=== PATIENT | female | born 1980 | race American Indian/Alaskan Native ===

== ENCOUNTER 2017-09-21 16:28 | Inpatient (IN) | payer OTHER, MEDICAID ==
[2017-09-21 17:47] LABS: Hematocrit 34.4 % (30.3-42.9); Hemoglobin 11.1 gm/dl (10.1-14.3); Mean Corpuscular HGB Conc 32 % (30-34); Mean Corpuscular Hemoglobin 26 pg (28-32); Mean Corpuscular Volume 81 fl (79-97); Platelet Count 313 K/mm3 (140-440); Red Blood Count 4.22 M/mm3 (3.65-5.03); Red Cell Distribution Width 18.6 % (13.2-15.2)
[2017-09-21 17:55] LABS: INR 0.95 (0.87-1.13)
[2017-09-21 17:56] LABS: Partial Thromboplastin Time 26.4 Sec. (24.2-36.6)
[2017-09-21] MEDS ORDERED: APRESOLINE IV NR (18:08)
[2017-09-21 18:13] LABS: Alanine Aminotransferase 21 units/L (7-56); Uric Acid 5.3 mg/dL (3.5-7.6)
[2017-09-21 18:15] LABS: Bilirubin,Urine NEG (Negative); Blood,Urine LG (Negative); Color,Urine Red (Yellow); Mucus,Urine 1+ /HPF; Urobilinogen,Urine < 2.0 mg/dL (<2.0)
[2017-09-21 18:16] LABS: RBC,Urine > 182.0 /HPF (0.0-6.0)
--- NOTE | 2017-09-21 19:36 | Ultrasound Report ---
FINAL REPORT EXAM: US OB > = 14 WEEKS FETUS HISTORY: vaginal bleeding, looking at placenta TECHNIQUE: Transabdominal sonography of the pelvis. PRIORS: None. FINDINGS: There is a single, live intrauterine in breech presentation. heart motion is detected and heart rate is 152 beats per minute. Placenta is located anterior right lateral and there is no evidence of previa or abruption. Lobular and rounded, hypoechoic focus adjacent to or partially contiguous with placenta anteriorly measuring approximately 5 cm, nonspecific. Cervical length 2.6 cm. Biometric data obtained and corresponds to an estimated gestational age of 27 weeks 0 days and an ultrasound estimated date of delivery of 21 December 2017 (it should be noted that an examination performed earlier in may yield more accurate dating). Limited survey grossly unremarkable. Amniotic fluid index is 17.4 cm. BPD: 6.72 cm HC: 26.5 cm AC: 22.2 cm FL: 4.81 cm Remainder of the uterus and adnexa grossly unremarkable. IMPRESSION: 1. Single, live intrauterine . 2. Lobular, hypoechoic focus adjacent to or contiguous with anterior placenta may represent focal lobulation or succenturiate lobe, uterine fibroid or contraction. Exact etiology or significance uncertain, and clinical correlation along with followup may be warranted. 3. Mildly decreased cervical length.
--- NOTE | 2017-09-21 19:42 | History and Physical Report ---
History of Present Illness Date of examination: 09/21/17 Date of admission: 09/21/17 Chief complaint: vaginal bleeding History of present illness: This is a 37 yo at 27+5 WEEKS came in c/o vaginal bleeding this am. she stated that she has changed her pads 3x since this am. She reports good fm no contractions nor pain. SHe denies any lightheadedness nor dizziness. no sob, cp. she is aptient of Premier since 7 weeks and been co managed with [facility] for high risk . She has TYPE 2 DIABETES on 88 u N and 64 u R in am and dinner 78 u R and before bed 84 U N. Metformin 500 mg BID. She also has cHTN on labetolol 100 mg bid. 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 She has had exposure to welbutrin and celexa. she has had a previous csec and desires repeat with undesired infertility with BTL. Past History Past Medical History: hypertension, diabetes, other (depression) Past Surgical History: section [employer] History: chlamydia, gonorrhea, herpes Family/Genetic History: diabetes, heart disease, other (alhzheimer) Social history: no significant social history, (seperated). denies: smoking, alcohol abuse, prescription drug abuse - Obstetrical History Expected Date of Delivery: 12/16/17 Actual Gestation: 27 Week(s) 5 Day(s) : 4 Para: 3 Hx # Term Pregnancies: 2 Number of Pregnancies: 1 Spontaneous Abortions: 0 Induced : 0 Number of Living Children: 3 Medications and Allergies Allergies Allergy/AdvReac Type Severity Reaction Status Date / Time No Known Allergies Allergy Verified 05/13/14 23:02 Home Medications Medication Instructions Recorded Confirmed Last Taken Type NIFEdipine XL [Procardia Xl] 90 mg PO QDAY #60 tablet 05/17/14 09/21/17 18:00 Rx metFORMIN [Glucophage] 500 mg PO BIDDIAB #60 tablet 05/17/14 09/21/17 09/20/17 13:00 Rx Insulin NPH Human Isophane 86 units SQ BID 09/21/17 09/21/17 09/21/17 08:00 History [Novolin N] Insulin Regular, Human [Humulin R] 56 units SQ BID 09/21/17 09/21/17 09/21/17 08 :00 History Labetalol [Normodyne] 200 mg PO TID 09/21/17 09/21/17 09/20/17 18:00 History Vit No.130/Iron/Folic 1 tab PO DAILY 09/21/17 09/21/17 09/20/17 History [ Tablet] buPROPion [Wellbutrin] 100 mg PO DAILY 09/21/17 09/21/17 09/20/17 History Review of Systems All systems: negative Genitourinary: vaginal bleeding - Vital Signs Vital signs: Vital Signs Pulse Pulse Ox 130 H 100 09/21/17 16:37 09/21/17 16:37 Temp Pulse Resp BP Pulse Ox 126 H 150/87 81 L 09/21/17 19:35 09/21/17 19:35 09/21/17 18:56 - Physical Exam Breasts: Positive: deferred Cardiovascular: Regular rate, Normal S1 Lungs: Positive: Clear to auscultation, Normal air movement Abdomen: Positive: normal appearance, soft, guarding, normal bowel sounds. Negative: distention, tenderness Genitourinary (Female): Positive: normal external genitalia Vulva: both: normal Vagina: Positive: other (blood) Uterus: Positive: normal size, normal contour Anus/Rectum: Positive: normal perianal skin Extremities: Positive: normal Deep Tendon Reflex Grade: Normal +2 - Obstetrical FHR: category 1 Results Result Diagrams: 09/21/17 17:10 09/21/17 17:10 Abnormal lab results 09/21/17 09/21/17 09/21/17 Range/Units 16:52 17:00 17:10 MCH 26 L (28-32) pg RDW 18.6 H (13.2-15.2) % POC Glucose 47 L (70-105) Lactate Dehydrogenase (91-180) units/L Urine WBC (Auto) 10.0 H (0.0-6.0) /HPF 09/21/17 Range/Units 17:10 MCH (28-32) pg RDW (13.2-15.2) % POC Glucose (70-105) Lactate Dehydrogenase 223 H (91-180) units/L Urine WBC (Auto) (0.0-6.0) /HPF All other labs normal.
[2017-09-21] MEDS ORDERED: COLACE PO PRN (19:59)
[2017-09-21] MEDS ORDERED: LACTATED RINGERS 1,000 ML IV ONE (20:00)
[2017-09-21] MEDS ORDERED: BENADRYL PO PRN (20:14)
[2017-09-21] MEDS ORDERED: LACTATED RINGERS 1,000 ML ONE ×2 (20:14→21:23)
[2017-09-21] MEDS ORDERED: MYLICON PO PRN (20:14)
[2017-09-21] MEDS ORDERED: ZOFRAN IV PRN (20:14)
[2017-09-21] MEDS ORDERED: D50W (25GM) Syringe IV PRN (20:20)
[2017-09-21] MEDS ORDERED: cefTRIAXone 1 GM in NACL 0.9% 20 ML IV SCH (20:45)
[2017-09-21] MEDS ORDERED: SUBLIMAZE IV PRN (21:33)
[2017-09-21] MEDS ORDERED: MILK OF MAGNESIA PO PRN (22:00)
[2017-09-22] MEDS: TYLENOL PO PRN (05:10)
[2017-09-22] MEDS: LACTATED RINGERS 1,000 ML IV SCH (05:14)
[2017-09-22] MEDS ORDERED: CELESTONE SOLUSPAN IM SCH (07:00)
[2017-09-22] MEDS ORDERED: NACL 0.9% 500 ML 500 ML IV ONE (08:32)
--- NOTE | 2017-09-22 08:36 | Progress Note ---
Assessment and Plan A/P HD#2 vaginal bleeding assess for abruption continous monitoring sliding scale for DM bmz x1 today tomorrwo next dose bed rest CBC today and cross 2 units US reviewed breech will need repeat csec with delivery Niccu consult today Subjective - Subjective Date of service: 09/22/17 Principal diagnosis: vaginal bleeding in third trimester Interval history: This is a 37 yo at 27+5 WEEKS came in c/o vaginal bleeding this am. she stated that she has changed her pads 3x since this am. She reports good fm no contractions nor pain. SHe denies any lightheadedness nor dizziness. no sob, cp. she is aptient of Premier since 7 weeks and been co managed with [facility] for high risk . She has TYPE 2 DIABETES on 88 u N and 64 u R in am and dinner 78 u R and before bed 84 U N. Metformin 500 mg BID. She also has cHTN on labetolol 100 mg bid. 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 She has had exposure to welbutrin and celexa. she has had a previous csec and desires repeat with undesired infertility with BTL. Patient reports: vaginal bleeding Objective - Vital Signs Vital Signs: Vital Signs - 12hr 09/21/17 09/21/17 09/21/17 20:37 21:07 21:53 Temperature Pulse Rate 117 H 114 H 107 H Respiratory Rate Blood Pressure 189/101 161/91 132/73 Blood Pressure [Right] O2 Sat by Pulse Oximetry 09/21/17 09/21/17 09/22/17 22:10 23:08 00:08 Temperature Pulse Rate 104 H 108 H 102 H Respiratory Rate Blood Pressure 123/65 126/83 142/92 Blood Pressure [Right] O2 Sat by Pulse Oximetry 09/22/17 09/22/17 09/22/17 01:08 02:08 03:09 Temperature Pulse Rate 99 H 99 H 107 H Respiratory Rate Blood Pressure 105/59 128/86 153/88 Blood Pressure [Right] O2 Sat by Pulse Oximetry 09/22/17 09/22/17 09/22/17 04:09 04:20 05:08 Temperature Pulse Rate 102 H 93 H 103 H Respiratory Rate Blood Pressure 143/86 174/104 Blood Pressure [Right] O2 Sat by Pulse 94 Oximetry 09/22/17 09/22/17 09/22/17 05:13 05:23 06:08 Temperature Pulse Rate 105 H 98 H 94 H Respiratory Rate Blood Pressure 161/97 129/63 131/69 Blood Pressure [Right] O2 Sat by Pulse Oximetry 09/22/17 09/22/17 09/22/17 06:45 07:21 08:14 Temperature 96.8 F L Pulse Rate 97 H 106 H Respiratory 16 Rate Blood Pressure Blood Pressure 148/98 [Right] O2 Sat by Pulse 0 L 88 99 Oximetry 09/22/17 09/22/17 09/22/17 08:19 08:20 08:25 Temperature Pulse Rate 108 H 107 H 108 H Respiratory Rate Blood Pressure 148/98 Blood Pressure [Right] O2 Sat by Pulse 86 98 99 Oximetry 09/22/17 09/22/17 08:29 08:35 Temperature Pulse Rate 109 H 107 H Respiratory Rate Blood Pressure Blood Pressure [Right] O2 Sat by Pulse 99 100 Oximetry - Exam Breasts: deferred Cardiovascular: Regular rate, Normal S1 Lungs: Clear to auscultation, Normal air movement Abdomen: Present: normal appearance, soft, normal bowel sounds. Absent: distention, tenderness, guarding Vulva: both: normal (blood in vault 1/2 dollar size clot no active bleeding ) Uterus: Present: normal, firm, fundal height below umbilicus. Absent: bogginess , tenderness FHR: category 1 Cervical Dilatation: 1 Cervical Effacement Percentage: 40 station: -1 Uterine Contraction Pattern: Absent Uterine Tone Measurement Phase: Resting Extremities: normal Deep Tendon Reflex Grade: Normal +2 - Labs Labs: Abnormal Labs 09/21/17 09/21/17 09/21/17 16:52 17:00 17:08 MCH RDW POC Glucose 47 L Lactate Dehydrogenase Urine WBC (Auto) 10.0 H Crossmatch See Detail 09/21/17 09/21/17 17:10 17:10 MCH 26 L RDW 18.6 H POC Glucose Lactate Dehydrogenase 223 H Urine WBC (Auto) Crossmatch Laboratory Results - last 24 hr 09/21/17 09/21/17 09/21/17 16:52 17:00 17:08 WBC RBC Hgb Hct MCV MCH MCHC RDW Plt Count PT INR APTT Creatinine Estimated GFR POC Glucose 47 L Uric Acid AST ALT Lactate Dehydrogenase Urine Color Red Urine Turbidity Clear Urine pH 7.0 Ur Specific Tram 1.015 Urine Protein 100 mg/dl Urine Glucose (UA) Neg Urine Ketones Neg Urine Blood Lg Urine Nitrite Neg Urine Bilirubin Neg Urine Urobilinogen < 2.0 Ur Leukocyte Esterase Tr Urine WBC (Auto) 10.0 H Urine RBC (Auto) > 182.0 U Epithel Cells (Auto) 11.0 Urine Mucus 1+ Blood Type A POSITIVE Antibody Screen Negative Crossmatch See Detail 09/21/17 09/21/17 09/21/17 17:10 17:10 17:10 WBC 10.9 RBC 4.22 Hgb 11.1 Hct 34.4 MCV 81 MCH 26 L MCHC 32 RDW 18.6 H Plt Count 313 PT 13.1 INR 0.95 APTT 26.4 Creatinine 0.8 Estimated GFR > 60 POC Glucose Uric Acid 5.3 AST 16 ALT 21 Lactate Dehydrogenase 223 H Urine Color Urine Turbidity Urine pH Ur Specific Tram Urine Protein Urine Glucose (UA) Urine Ketones Urine Blood Urine Nitrite Urine Bilirubin Urine Urobilinogen Ur Leukocyte Esterase Urine WBC (Auto) Urine RBC (Auto) U Epithel Cells (Auto) Urine Mucus Blood Type Antibody Screen Crossmatch 09/21/17 09/22/17 19:52 06:44 WBC RBC Hgb Hct MCV MCH MCHC RDW Plt Count PT INR APTT Creatinine Estimated GFR POC Glucose 87 104 Uric Acid AST ALT Lactate Dehydrogenase Urine Color Urine Turbidity Urine pH Ur Specific Tram Urine Protein Urine Glucose (UA) Urine Ketones Urine Blood Urine Nitrite Urine Bilirubin Urine Urobilinogen Ur Leukocyte Esterase Urine WBC (Auto) Urine RBC (Auto) U Epithel Cells (Auto) Urine Mucus Blood Type Antibody Screen Crossmatch
[2017-09-22] MEDS: NORMODYNE PO SCH ×3 (09:34→20:40)
[2017-09-22 09:39] LABS: Basophils # (Auto) 0.1 K/mm3 (0.0-0.1); Basophils % (Auto) 0.5 % (0.0-1.8); Eosinophils % (Auto) 0.1 % (0.0-4.3); Hematocrit 32.7 % (30.3-42.9); Hemoglobin 10.4 gm/dl (10.1-14.3); Lymphocytes # (Auto) 1.3 K/mm3 (1.2-5.4); Lymphocytes % (Auto) 11.6 % (13.4-35.0); Mean Corpuscular HGB Conc 32 % (30-34); Mean Corpuscular Volume 81 fl (79-97); Monocytes # (Auto) 0.5 K/mm3 (0.0-0.8); Monocytes % (Auto) 4.5 % (0.0-7.3); Platelet Count 310 K/mm3 (140-440); Red Blood Count 4.04 M/mm3 (3.65-5.03); Red Cell Distribution Width 18.3 % (13.2-15.2)
[2017-09-22 09:46] LABS: Mean Corpuscular Hemoglobin 26 pg (28-32)
[2017-09-22] MEDS: PRENATAL VITAMIN PO SCH (11:32)
[2017-09-22 13:04] LABS: Hematocrit 31.1 % (30.3-42.9); Mean Corpuscular HGB Conc 32 % (30-34); Mean Corpuscular Hemoglobin 26 pg (28-32); Mean Corpuscular Volume 81 fl (79-97); Platelet Count 286 K/mm3 (140-440); Red Blood Count 3.84 M/mm3 (3.65-5.03); Red Cell Distribution Width 18.7 % (13.2-15.2)
[2017-09-22 13:31] LABS: Alanine Aminotransferase 18 units/L (7-56); Albumin 2.9 g/dL (3.9-5); BUN/Creatinine Ratio 11; Blood Urea Nitrogen 9 mg/dL (7-17); Calcium 8.3 mg/dL (8.4-10.2); Hemolysis Index 17
[2017-09-22] MEDS ORDERED: NACL 0.9% 1000 ML 1,000 ML ONE ×2 (14:25→22:55)
[2017-09-22] MEDS: HumuLIN R SUB-Q SCH ×3 (14:39→23:16)
[2017-09-22 16:28] LABS: Basophils % (Auto) 0.2 % (0.0-1.8); Eosinophils % (Auto) 0.1 % (0.0-4.3); Hematocrit 31.3 % (30.3-42.9); Hemoglobin 10.3 gm/dl (10.1-14.3); Lymphocytes # (Auto) 0.7 K/mm3 (1.2-5.4); Lymphocytes % (Auto) 6.9 % (13.4-35.0); Mean Corpuscular HGB Conc 33 % (30-34); Mean Corpuscular Hemoglobin 27 pg (28-32); Mean Corpuscular Volume 81 fl (79-97); Monocytes # (Auto) 0.4 K/mm3 (0.0-0.8); Monocytes % (Auto) 3.9 % (0.0-7.3); Platelet Count 284 K/mm3 (140-440); Red Blood Count 3.86 M/mm3 (3.65-5.03); Red Cell Distribution Width 18.4 % (13.2-15.2)
--- NOTE | 2017-09-22 18:10 | Consultation ---
History of Present Illness Consult date: 09/22/17 Reason for consult: prematurity (27 weeks gestation with vaginal bleeding) Delight Documentation - information: Height 5 ft 8 in Medications and Allergies Allergies Allergy/AdvReac Type Severity Reaction Status Date / Time No Known Allergies Allergy Verified 05/13/14 23:02 Home Medications Medication Instructions Recorded Confirmed Last Taken Type NIFEdipine XL [Procardia Xl] 90 mg PO QDAY #60 tablet 05/17/14 09/21/17 18:00 Rx metFORMIN [Glucophage] 500 mg PO BIDDIAB #60 tablet 05/17/14 09/21/17 09/20/17 13:00 Rx Insulin NPH Human Isophane 86 units SQ BID 09/21/17 09/21/17 09/21/17 08:00 History [Novolin N] Insulin Regular, Human [Humulin R] 56 units SQ BID 09/21/17 09/21/17 09/21/17 08 :00 History Labetalol [Normodyne] 200 mg PO TID 09/21/17 09/21/17 09/20/17 18:00 History Vit No.130/Iron/Folic 1 tab PO DAILY 09/21/17 09/21/17 09/20/17 History [ Tablet] buPROPion [Wellbutrin] 100 mg PO DAILY 09/21/17 09/21/17 09/20/17 History Active Meds: Active Medications Acetaminophen (Tylenol) 650 mg PO Q4H PRN PRN Reason: Pain MILD(1-3)/Fever >100.5/MURRELL Last Admin: 09/22/17 05:10 Dose: 650 mg Al Hydrox/Mg Hydrox/Simethicone (Alum-Mag Hydrox-Simeth [id number]/5ml) 30 ml PO Q6H PRN PRN Reason: Indigestion Dextrose (D50w (25gm) Syringe) 50 ml IV PRN PRN PRN Reason: Hypoglycemia Diphenhydramine HCl (Benadryl) 25 mg PO Q6H PRN PRN Reason: Itching Docusate Sodium (Colace) 100 mg PO Q12H PRN PRN Reason: Constipation Fentanyl (Sublimaze) 100 mcg IV Q2H PRN PRN Reason: Labor Pain Last Admin: 09/22/17 01:35 Dose: 50 mcg Lactated Ringer's (Lactated Ringers) 1,000 mls @ 125 mls/hr IV DIRECT [facility] Last Admin: 09/22/17 05:14 Dose: 125 mls/hr Insulin Human Regular (Humulin R) 0 units SUB-Q ACHS [facility]; Protocol Last Admin: 09/22/17 14:39 Dose: 4 units Labetalol HCl (Normodyne) 200 mg PO TID [facility] Last Admin: 09/22/17 14:44 Dose: 200 mg Magnesium Hydroxide (Milk Of Magnesia) 30 ml PO QHS PRN PRN Reason: Laxative Effect Multivitamins/Iron/Calcium ( Vitamin) 1 each PO QDAY [facility] Last Admin: 09/22/17 11:32 Dose: 1 each Ondansetron HCl (Zofran) 4 mg IV Q6H PRN PRN Reason: Nausea And Vomiting Simethicone (Mylicon) 80 mg PO Q6H PRN PRN Reason: Gas pain Zolpidem Tartrate (Ambien) 10 mg PO ONCE PRN PRN Reason: Sleep Exam Vital Signs Pulse Pulse Ox 130 H 100 09/21/17 16:37 09/21/17 16:37 Temp Pulse Resp BP Pulse Ox 96.8 F L 106 H 16 160/97 0 L 09/22/17 08:14 09/22/17 16:08 09/22/17 08:14 09/22/17 16:08 09/22/17 14:30 Results - Laboratory Findings 09/22/17 16:09 09/22/17 12:52 Abnormal lab results 09/21/17 09/21/17 09/21/17 Range/Units 17:00 17:08 17:10 Hgb (10.1-14.3) gm/dl MCH (28-32) pg RDW (13.2-15.2) % Lymph % (Auto) (13.4-35.0) % Lymph # (1.2-5.4) K/mm3 Seg Neutrophils % (40.0-70.0) % Seg Neutrophils # (1.8-7.7) K/mm3 Carbon Dioxide (22-30) mmol/L Glucose (65-100) mg/dL POC Glucose (70-105) Calcium (8.4-10.2) mg/dL Lactate Dehydrogenase 223 H (91-180) units/L Total Protein (6.3-8.2) g/dL Albumin (3.9-5) g/dL Urine WBC (Auto) 10.0 H (0.0-6.0) /HPF Crossmatch See Detail 09/22/17 09/22/17 09/22/17 Range/Units 09:24 09:54 12:52 Hgb 10.0 L (10.1-14.3) gm/dl MCH 26 L 26 L (28-32) pg RDW 18.3 H 18.7 H (13.2-15.2) % Lymph % (Auto) 11.6 L (13.4-35.0) % Lymph # (1.2-5.4) K/mm3 Seg Neutrophils % 83.3 H (40.0-70.0) % Seg Neutrophils # 9.0 H (1.8-7.7) K/mm3 Carbon Dioxide (22-30) mmol/L Glucose (65-100) mg/dL POC Glucose 117 H (70-105) Calcium (8.4-10.2) mg/dL Lactate Dehydrogenase (91-180) units/L Total Protein (6.3-8.2) g/dL Albumin (3.9-5) g/dL Urine WBC (Auto) (0.0-6.0) /HPF Crossmatch 09/22/17 09/22/17 09/22/17 Range/Units 12:52 14:24 16:09 Hgb (10.1-14.3) gm/dl MCH 27 L (28-32) pg RDW 18.4 H (13.2-15.2) % Lymph % (Auto) 6.9 L (13.4-35.0) % Lymph # 0.7 L (1.2-5.4) K/mm3 Seg Neutrophils % 88.9 H (40.0-70.0) % Seg Neutrophils # 9.4 H (1.8-7.7) K/mm3 Carbon Dioxide 18 L (22-30) mmol/L Glucose 255 H (65-100) mg/dL POC Glucose 255 H (70-105) Calcium 8.3 L (8.4-10.2) mg/dL Lactate Dehydrogenase (91-180) units/L Total Protein 6.1 L (6.3-8.2) g/dL Albumin 2.9 L (3.9-5) g/dL Urine WBC (Auto) (0.0-6.0) /HPF Crossmatch Assessment and Plan Mother is 37yo with history of delivery @ 36 weeks presenting with vaginal bleeding at 27 weeks I explained the need for NICU admission, the possible need for intubation, surfactant, non-invasive ventilation, TPN, NG/OG feeds, UVC and UAC. We discussed to risks of IVH, feeding difficulties, infection in the NICU and shelter outcomes. Mother demonstrated understanding of the information presented, she expressed dissatisfaction with care provided at [facility] NICU with her previous child and asked if baby could be transferred after delivery. I educated her about the increased risk of IVH with transport of an extremely premature baby soon after delivery and the difficulties associated with transfer of baby between NICU's with the same level of care. I encouraged her to call the NICU with further questions. Plan: Agree with steroids MgSO4 and antibiotics Will attend delivery Please call NICU with questions
[2017-09-22] MEDS: AMBIEN PO PRN (21:26)
[2017-09-23 00:45] LABS: Amphetamine Screen,Urine PRESUMPTIVE NEGATIVE; Benzodiazepines Screen,Urine PRESUMPTIVE NEGATIVE; Cannabinoid Screen,Urine PRESUMPTIVE NEGATIVE; Cocaine Screen,Urine PRESUMPTIVE NEGATIVE; Methadone Screen,Urine PRESUMPTIVE NEGATIVE; Opiate Screen,Urine PRESUMPTIVE NEGATIVE
[2017-09-23 01:35] LABS: Creatinine 24 Hour,Urine 1.7 (0.8-2.8); Creatinine,Urine 93.1 mg/dL (0.1-20.0)
--- NOTE | 2017-09-23 07:33 | Progress Note ---
Assessment and Plan A/P HD#3 IUP 28 weeks , chtm, type 2 DM, vaginal bleeding assess for abruption continuous monitoring type 2 dm bmz x2 today bed rest CBC today ( hemoglobin stable at 10.3) US reviewed breech will need repeat csec with delivery appreciate Niccu consult continous monitoring Subjective - Subjective Date of service: 09/23/17 Principal diagnosis: vaginal bleeding in third trimester Interval history: This is a 37 yo at 27+5 WEEKS came in c/o vaginal bleeding this am. she stated that she has changed her pads 3x since this am. She reports good fm no contractions nor pain. SHe denies any lightheadedness nor dizziness. no sob, cp. she is aptient of Premier since 7 weeks and been co managed with [facility] for high risk . She has TYPE 2 DIABETES on 88 u N and 64 u R in am and dinner 78 u R and before bed 84 U N. Metformin 500 mg BID. She also has cHTN on labetolol 100 mg bid. 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 She has had exposure to welbutrin and celexa. she has had a previous csec and desires repeat with undesired infertility with BTL. Patient reports: vaginal bleeding, no new complaints, no loss of fluid ( decreased to spotting ) Objective - Vital Signs Vital Signs: Vital Signs - 12hr 09/22/17 09/22/17 09/22/17 20:30 20:33 20:36 Temperature Pulse Rate 47 L 69 Respiratory Rate Blood Pressure Blood Pressure [Right] O2 Sat by Pulse 84 85 79 L Oximetry 09/22/17 09/22/17 09/22/17 20:37 20:39 20:40 Temperature 99.4 F Pulse Rate 106 H 106 H 109 H Respiratory 16 Rate Blood Pressure 145/83 145/83 Blood Pressure 145/83 [Right] O2 Sat by Pulse 98 Oximetry 09/22/17 09/22/17 09/22/17 20:45 20:50 20:55 Temperature Pulse Rate 110 H 108 H 109 H Respiratory Rate Blood Pressure Blood Pressure [Right] O2 Sat by Pulse 99 99 99 Oximetry 09/22/17 09/22/17 09/22/17 21:00 21:03 21:10 Temperature Pulse Rate 109 H Respiratory Rate Blood Pressure Blood Pressure [Right] O2 Sat by Pulse 99 88 91 Oximetry 09/22/17 09/22/17 09/22/17 21:16 21:21 21:23 Temperature Pulse Rate 84 45 L Respiratory Rate Blood Pressure Blood Pressure [Right] O2 Sat by Pulse 83 L 83 L 80 L Oximetry 09/22/17 09/22/17 09/22/17 21:27 21:28 21:32 Temperature Pulse Rate 55 L 82 Respiratory Rate Blood Pressure Blood Pressure [Right] O2 Sat by Pulse 0 L 82 L 83 L Oximetry 09/22/17 09/22/17 09/22/17 21:43 21:49 21:52 Temperature Pulse Rate 118 H Respiratory Rate Blood Pressure 142/74 Blood Pressure [Right] O2 Sat by Pulse 91 90 Oximetry 09/22/17 09/22/17 09/22/17 21:54 22:22 22:30 Temperature Pulse Rate 105 H Respiratory Rate Blood Pressure 123/60 Blood Pressure [Right] O2 Sat by Pulse 80 L 93 Oximetry 09/22/17 09/22/17 09/22/17 22:36 22:46 23:22 Temperature Pulse Rate 63 104 H Respiratory Rate Blood Pressure 143/76 Blood Pressure [Right] O2 Sat by Pulse 100 79 L Oximetry 09/22/17 09/23/17 09/23/17 23:52 00:23 00:53 Temperature Pulse Rate 101 H 105 H 97 H Respiratory Rate Blood Pressure 134/71 184/85 155/80 Blood Pressure [Right] O2 Sat by Pulse Oximetry 09/23/17 09/23/17 09/23/17 01:22 01:52 02:23 Temperature Pulse Rate 102 H 93 H 97 H Respiratory Rate Blood Pressure 144/85 128/71 131/70 Blood Pressure [Right] O2 Sat by Pulse Oximetry 09/23/17 09/23/17 09/23/17 04:50 04:52 05:09 Temperature Pulse Rate 75 96 H 86 Respiratory Rate Blood Pressure 153/85 Blood Pressure [Right] O2 Sat by Pulse 0 L 99 0 L Oximetry 09/23/17 09/23/17 09/23/17 05:15 05:22 05:52 Temperature Pulse Rate 59 L 93 H 101 H Respiratory Rate Blood Pressure 136/77 136/75 Blood Pressure [Right] O2 Sat by Pulse 76 L Oximetry 09/23/17 09/23/17 06:22 07:23 Temperature Pulse Rate 96 H 101 H Respiratory Rate Blood Pressure 131/75 179/90 Blood Pressure [Right] O2 Sat by Pulse Oximetry - Exam Breasts: deferred Cardiovascular: Regular rate, Normal S1 Lungs: Clear to auscultation, Normal air movement Abdomen: Present: normal appearance, soft, normal bowel sounds. Absent: distention, tenderness, guarding Uterus: Present: normal. Absent: tenderness FHR: category 1 Uterine Contraction Monitor Mode: External Uterine Contraction Pattern: Absent Uterine Tone Measurement Phase: Resting Extremities: normal Deep Tendon Reflex Grade: Normal +2 - Labs Labs: Abnormal Labs 09/21/17 09/21/17 09/21/17 16:52 17:00 17:08 Hgb MCH RDW Lymph % (Auto) Lymph # Seg Neutrophils % Seg Neutrophils # Carbon Dioxide Glucose POC Glucose 47 L Calcium Lactate Dehydrogenase Total Protein Albumin Urine WBC (Auto) 10.0 H Urine Creatinine Ur Total Protein 24 Hr Urine Total Protein Crossmatch See Detail 09/21/17 09/21/17 09/22/17 17:10 17:10 00:00 Hgb MCH 26 L RDW 18.6 H Lymph % (Auto) Lymph # Seg Neutrophils % Seg Neutrophils # Carbon Dioxide Glucose POC Glucose Calcium Lactate Dehydrogenase 223 H Total Protein Albumin Urine WBC (Auto) Urine Creatinine 93.1 H Ur Total Protein 24 Hr 1386.00 H Urine Total Protein 77 H Crossmatch 09/22/17 09/22/17 09/22/17 09:24 09:54 12:52 Hgb 10.0 L MCH 26 L 26 L RDW 18.3 H 18.7 H Lymph % (Auto) 11.6 L Lymph # Seg Neutrophils % 83.3 H Seg Neutrophils # 9.0 H Carbon Dioxide Glucose POC Glucose 117 H Calcium Lactate Dehydrogenase Total Protein Albumin Urine WBC (Auto) Urine Creatinine Ur Total Protein 24 Hr Urine Total Protein Crossmatch 09/22/17 09/22/17 09/22/17 12:52 14:24 16:09 Hgb MCH 27 L RDW 18.4 H Lymph % (Auto) 6.9 L Lymph # 0.7 L Seg Neutrophils % 88.9 H Seg Neutrophils # 9.4 H Carbon Dioxide 18 L Glucose 255 H POC Glucose 255 H Calcium 8.3 L Lactate Dehydrogenase Total Protein 6.1 L Albumin 2.9 L Urine WBC (Auto) Urine Creatinine Ur Total Protein 24 Hr Urine Total Protein Crossmatch 04/14/18 04/14/18 18:37 21:29 Hgb MCH RDW Lymph % (Auto) Lymph # Seg Neutrophils % Seg Neutrophils # Carbon Dioxide Glucose POC Glucose 262 H 231 H Calcium Lactate Dehydrogenase Total Protein Albumin Urine WBC (Auto) Urine Creatinine Ur Total Protein 24 Hr Urine Total Protein Crossmatch Laboratory Results - last 24 hr 09/21/17 09/22/17 09/22/17 17:08 00:00 09:24 WBC 10.8 RBC 4.04 Hgb 10.4 Hct 32.7 MCV 81 MCH 26 L MCHC 32 RDW 18.3 H Plt Count 310 Lymph % (Auto) 11.6 L [place] % (Auto) 4.5 Eos % (Auto) 0.1 Baso % (Auto) 0.5 Lymph # 1.3 Hopkins # 0.5 Eos # 0.0 Baso # 0.1 Seg Neutrophils % 83.3 H Seg Neutrophils # 9.0 H Sodium Potassium Chloride Carbon Dioxide Anion Gap BUN Creatinine Estimated GFR BUN/Creatinine Ratio Glucose POC Glucose Calcium Total Bilirubin AST ALT Alkaline Phosphatase Total Protein Albumin Albumin/Globulin Ratio Urine Total Volume 1800 Urine Creatinine 93.1 H Ur Creatinine 24 Hour 1.7 Ur Total Protein 24 Hr 1386.00 H Urine Total Protein 77 H Urine Opiates Screen Urine Methadone Screen Ur Barbiturates Screen Ur Phencyclidine Scrn Ur Amphetamines Screen U Benzodiazepines Scrn Urine Cocaine Screen U Marijuana (THC) Screen Drugs of Abuse Note Blood Type A POSITIVE Antibody Screen Negative Crossmatch See Detail 09/22/17 09/22/17 09/22/17 09:54 12:52 12:52 WBC 10.8 RBC 3.84 Hgb 10.0 L Hct 31.1 MCV 81 MCH 26 L MCHC 32 RDW 18.7 H Plt Count 286 Lymph % (Auto) Hopkins % (Auto) Eos % (Auto) Baso % (Auto) Lymph # Hopkins # Eos # Baso # Seg Neutrophils % Seg Neutrophils # Sodium 140 Potassium 4.5 Chloride 99.7 Carbon Dioxide 18 L Anion Gap 27 BUN 9 Creatinine 0.8 Estimated GFR > 60 BUN/Creatinine Ratio 11 Glucose 255 H POC Glucose 117 H Calcium 8.3 L Total Bilirubin < 0.20 AST 16 ALT 18 Alkaline Phosphatase 106 Total Protein 6.1 L Albumin 2.9 L Albumin/Globulin Ratio 0.9 Urine Total Volume Urine Creatinine Ur Creatinine 24 Hour Ur Total Protein 24 Hr Urine Total Protein Urine Opiates Screen Urine Methadone Screen Ur Barbiturates Screen Ur Phencyclidine Scrn Ur Amphetamines Screen U Benzodiazepines Scrn Urine Cocaine Screen U Marijuana (THC) Screen Drugs of Abuse Note Blood Type Antibody Screen Crossmatch 09/22/17 09/22/17 09/22/17 14:24 16:09 18:37 WBC 10.6 RBC 3.86 Hgb 10.3 Hct 31.3 MCV 81 MCH 27 L MCHC 33 RDW 18.4 H Plt Count 284 Lymph % (Auto) 6.9 L Hopkins % (Auto) 3.9 Eos % (Auto) 0.1 Baso % (Auto) 0.2 Lymph # 0.7 L Hopkins # 0.4 Eos # 0.0 Baso # 0.0 Seg Neutrophils % 88.9 H Seg Neutrophils # 9.4 H Sodium Potassium Chloride Carbon Dioxide Anion Gap BUN Creatinine Estimated GFR BUN/Creatinine Ratio Glucose POC Glucose 255 H 262 H Calcium Total Bilirubin AST ALT Alkaline Phosphatase Total Protein Albumin Albumin/Globulin Ratio Urine Total Volume Urine Creatinine Ur Creatinine 24 Hour Ur Total Protein 24 Hr Urine Total Protein Urine Opiates Screen Urine Methadone Screen Ur Barbiturates Screen Ur Phencyclidine Scrn Ur Amphetamines Screen U Benzodiazepines Scrn Urine Cocaine Screen U Marijuana (THC) Screen Drugs of Abuse Note Blood Type Antibody Screen Crossmatch 09/22/17 09/22/17 21:29 Unknown WBC RBC Hgb Hct MCV MCH MCHC RDW Plt Count Lymph % (Auto) Hopkins % (Auto) Eos % (Auto) Baso % (Auto) Lymph # Hopkins # Eos # Baso # Seg Neutrophils % Seg Neutrophils # Sodium Potassium Chloride Carbon Dioxide Anion Gap BUN Creatinine Estimated GFR BUN/Creatinine Ratio Glucose POC Glucose 231 H Calcium Total Bilirubin AST ALT Alkaline Phosphatase Total Protein Albumin Albumin/Globulin Ratio Urine Total Volume Urine Creatinine Ur Creatinine 24 Hour Ur Total Protein 24 Hr Urine Total Protein Urine Opiates Screen Presumptive negative Urine Methadone Screen Presumptive negative Ur Barbiturates Screen Presumptive negative Ur Phencyclidine Scrn Presumptive negative Ur Amphetamines Screen Presumptive negative U Benzodiazepines Scrn Presumptive negative Urine Cocaine Screen Presumptive negative U Marijuana (THC) Screen Presumptive negative Drugs of Abuse Note Disclamer Blood Type Antibody Screen Crossmatch
[2017-09-23] MEDS: NORMODYNE PO SCH ×3 (08:24→19:57)
[2017-09-23] MEDS: LACTATED RINGERS 1,000 ML IV SCH ×2 (08:25→16:11)
[2017-09-23] MEDS: PRENATAL VITAMIN PO SCH (09:22)
[2017-09-23] MEDS: HumuLIN R SUB-Q SCH ×4 (10:27→21:44)
[2017-09-23] MEDS ORDERED: PROCARDIA XL PO SCH (12:00)
[2017-09-23] MEDS: GLUCOPHAGE PO SCH (12:35)
[2017-09-23] MEDS: PROCARDIA XL PO SCH (21:15)
[2017-09-23] MEDS: AMBIEN PO PRN (21:15)
[2017-09-23] MEDS ORDERED: APRESOLINE IV NR (22:05)
[2017-09-24] MEDS: LACTATED RINGERS 1,000 ML IV SCH ×2 (00:59→09:38)
--- NOTE | 2017-09-24 01:25 | Ultrasound Report ---
FINAL REPORT EXAM: US OB LIMITED HISTORY: elevated BP COMPARISON: September 21, 2017 TECHNIQUE: Several real-time grayscale and color Doppler images were obtained. FINDINGS: Limited exam performed. Single live IUP is demonstrated. position cephalic. heart rate 150 beats per minute. Normal GONZALEZ 14.0 centimeters. Placenta location anterior. No placenta previa. IMPRESSION: Limited exam. Single live IUP. position cephalic. Placenta location anterior. No placenta previa. Normal GONZALEZ.
--- NOTE | 2017-09-24 01:26 | Ultrasound Report ---
FINAL REPORT EXAM: US OB BPP WO NON-STRESS HISTORY: elevated BP COMPARISON: Limited Ob ultrasound from today. TECHNIQUE: Several real-time grayscale and color Doppler images were obtained. FINDINGS: Normal breathing movements, movements, posterior tone and qualitative amniotic fluid volume. heart rate 150 beats per minute. Largest pocket of amniotic fluid 5.4 centimeters. IMPRESSION: Biophysical profile score 8/8.
[2017-09-24 05:34] LABS: Basophils % (Auto) 0.3 % (0.0-1.8); Hematocrit 30.1 % (30.3-42.9); Hemoglobin 9.8 gm/dl (10.1-14.3); Lymphocytes # (Auto) 1.7 K/mm3 (1.2-5.4); Lymphocytes % (Auto) 11.1 % (13.4-35.0); Mean Corpuscular HGB Conc 32 % (30-34); Mean Corpuscular Hemoglobin 26 pg (28-32); Mean Corpuscular Volume 81 fl (79-97); Monocytes # (Auto) 1.2 K/mm3 (0.0-0.8); Monocytes % (Auto) 7.9 % (0.0-7.3); Platelet Count 292 K/mm3 (140-440); Red Blood Count 3.71 M/mm3 (3.65-5.03); Red Cell Distribution Width 18.4 % (13.2-15.2)
[2017-09-24 05:56] LABS: Alanine Aminotransferase 19 units/L (7-56); Uric Acid 5.7 mg/dL (3.5-7.6)
[2017-09-24] MEDS: HumuLIN R SUB-Q SCH ×2 (09:50→12:23)
--- NOTE | 2017-09-24 10:00 | Progress Note ---
Assessment and Plan A: IUP at 28w1d s/p 2 doses of betamethasone Vaginal bleeding consistent with placental abruption Type II DM Chronic HTN Genital Herpes Previous x 1 Undesired Fertility Umbilical Hernia Obesity P: Continue inpatient management Await [facility] recommendations BPP 09/23/1701/16 Subjective - Subjective Date of service: 09/24/17 Principal diagnosis: vaginal bleeding in third trimester, aburption Interval history: Pt reports that she had no bleeding overnight Patient reports: vaginal bleeding (none overnight ), no new complaints, no loss of fluid (decreased to spotting ) Objective - Vital Signs Vital Signs: Vital Signs - 12hr 09/23/17 09/24/17 09/24/17 22:33 00:40 04:05 Temperature 97.8 F 99.0 F Pulse Rate 101 H 92 H 112 H Respiratory 16 Rate Blood Pressure 147/82 Blood Pressure 140/67 149/74 [Right] - Exam Breasts: deferred Cardiovascular: Regular rate Lungs: Clear to auscultation Abdomen: Present: soft (obese, gravid ) FHR: auscultation normal Uterine Contraction Monitor Mode: External Uterine Contraction Pattern: Absent Uterine Tone Measurement Phase: Resting Extremities: normal - Labs Labs: Abnormal Labs 09/21/17 09/21/17 09/21/17 16:52 17:00 17:08 WBC Hgb Hct MCH RDW Lymph % (Auto) Park % (Auto) Lymph # Park # Seg Neutrophils % Seg Neutrophils # Carbon Dioxide Glucose POC Glucose 47 L Calcium Lactate Dehydrogenase Total Protein Albumin Urine WBC (Auto) 10.0 H Urine Creatinine Ur Total Protein 24 Hr Urine Total Protein Crossmatch See Detail 09/21/17 09/21/17 09/22/17 17:10 17:10 00:00 WBC Hgb Hct MCH 26 L RDW 18.6 H Lymph % (Auto) Park % (Auto) Lymph # Park # Seg Neutrophils % Seg Neutrophils # Carbon Dioxide Glucose POC Glucose Calcium Lactate Dehydrogenase 223 H Total Protein Albumin Urine WBC (Auto) Urine Creatinine 93.1 H Ur Total Protein 24 Hr 1386.00 H Urine Total Protein 77 H Crossmatch 09/22/17 09/22/17 09/22/17 09:24 09:54 12:52 WBC Hgb 10.0 L Hct MCH 26 L 26 L RDW 18.3 H 18.7 H Lymph % (Auto) 11.6 L Park % (Auto) Lymph # Park # Seg Neutrophils % 83.3 H Seg Neutrophils # 9.0 H Carbon Dioxide Glucose POC Glucose 117 H Calcium Lactate Dehydrogenase Total Protein Albumin Urine WBC (Auto) Urine Creatinine Ur Total Protein 24 Hr Urine Total Protein Crossmatch 09/22/17 09/22/17 09/22/17 12:52 14:24 16:09 WBC Hgb Hct MCH 27 L RDW 18.4 H Lymph % (Auto) 6.9 L [place] % (Auto) Lymph # 0.7 L [place] # Seg Neutrophils % 88.9 H Seg Neutrophils # 9.4 H Carbon Dioxide 18 L Glucose 255 H POC Glucose 255 H Calcium 8.3 L Lactate Dehydrogenase Total Protein 6.1 L Albumin 2.9 L Urine WBC (Auto) Urine Creatinine Ur Total Protein 24 Hr Urine Total Protein Crossmatch 09/22/17 09/22/17 09/22/17 18:37 21:29 22:48 WBC Hgb Hct MCH RDW Lymph % (Auto) Park % (Auto) Lymph # [place] # Seg Neutrophils % Seg Neutrophils # Carbon Dioxide Glucose POC Glucose 262 H 231 H 181 H Calcium Lactate Dehydrogenase Total Protein Albumin Urine WBC (Auto) Urine Creatinine Ur Total Protein 24 Hr Urine Total Protein Crossmatch 09/23/17 09/23/17 09/23/17 07:54 10:25 15:03 WBC Hgb Hct MCH RDW Lymph % (Auto) Park % (Auto) Lymph # [place] # Seg Neutrophils % Seg Neutrophils # Carbon Dioxide Glucose POC Glucose 134 H 191 H 240 H Calcium Lactate Dehydrogenase Total Protein Albumin Urine WBC (Auto) Urine Creatinine Ur Total Protein 24 Hr Urine Total Protein Crossmatch 09/23/17 09/24/17 09/24/17 21:18 05:19 09:23 WBC 15.0 H Hgb 9.8 L Hct 30.1 L MCH 26 L RDW 18.4 H Lymph % (Auto) 11.1 L Park % (Auto) 7.9 H Lymph # Park # 1.2 H Seg Neutrophils % 80.7 H Seg Neutrophils # 12.1 H Carbon Dioxide Glucose POC Glucose 169 H 143 H Calcium Lactate Dehydrogenase Total Protein Albumin Urine WBC (Auto) Urine Creatinine Ur Total Protein 24 Hr Urine Total Protein Crossmatch Laboratory Results - last 24 hr 09/23/17 09/23/17 09/23/17 07:54 10:25 15:03 WBC RBC Hgb Hct MCV MCH MCHC RDW Plt Count Lymph % (Auto) Park % (Auto) Eos % (Auto) Baso % (Auto) Lymph # Park # Eos # Baso # Seg Neutrophils % Seg Neutrophils # Creatinine Estimated GFR POC Glucose 134 H 191 H 240 H Uric Acid AST ALT Lactate Dehydrogenase 09/23/17 09/24/17 09/24/17 21:18 05:19 05:19 WBC 15.0 H RBC 3.71 Hgb 9.8 L Hct 30.1 L MCV 81 MCH 26 L MCHC 32 RDW 18.4 H Plt Count 292 Lymph % (Auto) 11.1 L Park % (Auto) 7.9 H Eos % (Auto) 0.0 Baso % (Auto) 0.3 Lymph # 1.7 Park # 1.2 H Eos # 0.0 Baso # 0.0 Seg Neutrophils % 80.7 H Seg Neutrophils # 12.1 H Creatinine 0.7 Estimated GFR > 60 POC Glucose 169 H Uric Acid 5.7 AST 14 ALT 19 Lactate Dehydrogenase 175 09/24/17 09:23 WBC RBC Hgb Hct MCV MCH MCHC RDW Plt Count Lymph % (Auto) Park % (Auto) Eos % (Auto) Baso % (Auto) Lymph # Park # Eos # Baso # Seg Neutrophils % Seg Neutrophils # Creatinine Estimated GFR POC Glucose 143 H Uric Acid AST ALT Lactate Dehydrogenase
[2017-09-24] MEDS: NORMODYNE PO SCH ×3 (11:19→22:37)
[2017-09-24] MEDS: PRENATAL VITAMIN PO SCH (11:21)
[2017-09-24] MEDS: GLUCOPHAGE PO SCH (12:24)
[2017-09-24] MEDS: TYLENOL PO PRN (12:43)
--- NOTE | 2017-09-24 18:09 | Progress Note ---
Assessment and Plan 1. IUP at 27 1/7 weeks' 2. Suspect placental abruption 3. IDDM 4. Preeclampsia, severe by BP criteria, superimposed on essential HTN 5. Previous C/S 1. Continue hospitalization at least until complete resolution of vaginal bleeding/spotting 2. Serial PIH labs 3. BPP twice weekly 4. EFW q 2 weeks 5. SSI until 5-7 days after betamethasone, then adjust split-dose insulin as indicated 6. Deliver no later than 34 weeks' Subjective - Subjective Date of service: 09/24/17 (Feeling well, fetus active; now spotting without active vaginal bleeding) Principal diagnosis: vaginal bleeding in third trimester, aburption Patient reports: vaginal bleeding (none overnight ), no new complaints, no loss of fluid (decreased to spotting ) Objective - Vital Signs Vital Signs: Vital Signs - 12hr 09/24/17 09/24/17 11:19 12:43 Pulse Rate 110 H Respiratory 20 Rate Blood Pressure 137/83 - Exam Narrative Exam: Abd soft, nontender; FHT's reassuring; DTR 1-2+; BPP 8/8 - Labs Labs: Abnormal Labs 09/21/17 09/21/17 09/21/17 16:52 17:00 17:08 WBC Hgb Hct MCH RDW Lymph % (Auto) Davis % (Auto) Lymph # Davis # Seg Neutrophils % Seg Neutrophils # Carbon Dioxide Glucose POC Glucose 47 L Calcium Lactate Dehydrogenase Total Protein Albumin Urine WBC (Auto) 10.0 H Urine Creatinine Ur Total Protein 24 Hr Urine Total Protein Crossmatch See Detail 09/21/17 09/21/17 09/22/17 17:10 17:10 00:00 WBC Hgb Hct MCH 26 L RDW 18.6 H Lymph % (Auto) Davis % (Auto) Lymph # Davis # Seg Neutrophils % Seg Neutrophils # Carbon Dioxide Glucose POC Glucose Calcium Lactate Dehydrogenase 223 H Total Protein Albumin Urine WBC (Auto) Urine Creatinine 93.1 H Ur Total Protein 24 Hr 1386.00 H Urine Total Protein 77 H Crossmatch 09/22/17 09/22/17 09/22/17 09:24 09:54 12:52 WBC Hgb 10.0 L Hct MCH 26 L 26 L RDW 18.3 H 18.7 H Lymph % (Auto) 11.6 L Davis % (Auto) Lymph # Davis # Seg Neutrophils % 83.3 H Seg Neutrophils # 9.0 H Carbon Dioxide Glucose POC Glucose 117 H Calcium Lactate Dehydrogenase Total Protein Albumin Urine WBC (Auto) Urine Creatinine Ur Total Protein 24 Hr Urine Total Protein Crossmatch 09/22/17 09/22/17 09/22/17 12:52 14:24 16:09 WBC Hgb Hct MCH 27 L RDW 18.4 H Lymph % (Auto) 6.9 L Davis % (Auto) Lymph # 0.7 L Davis # Seg Neutrophils % 88.9 H Seg Neutrophils # 9.4 H Carbon Dioxide 18 L Glucose 255 H POC Glucose 255 H Calcium 8.3 L Lactate Dehydrogenase Total Protein 6.1 L Albumin 2.9 L Urine WBC (Auto) Urine Creatinine Ur Total Protein 24 Hr Urine Total Protein Crossmatch 09/22/17 09/22/17 09/22/17 18:37 21:29 22:48 WBC Hgb Hct MCH RDW Lymph % (Auto) Davis % (Auto) Lymph # Davis # Seg Neutrophils % Seg Neutrophils # Carbon Dioxide Glucose POC Glucose 262 H 231 H 181 H Calcium Lactate Dehydrogenase Total Protein Albumin Urine WBC (Auto) Urine Creatinine Ur Total Protein 24 Hr Urine Total Protein Crossmatch 09/23/17 09/23/17 09/23/17 07:54 10:25 15:03 WBC Hgb Hct MCH RDW Lymph % (Auto) Davis % (Auto) Lymph # Davis # Seg Neutrophils % Seg Neutrophils # Carbon Dioxide Glucose POC Glucose 134 H 191 H 240 H Calcium Lactate Dehydrogenase Total Protein Albumin Urine WBC (Auto) Urine Creatinine Ur Total Protein 24 Hr Urine Total Protein Crossmatch 09/23/17 09/24/17 09/24/17 21:18 05:19 09:23 WBC 15.0 H Hgb 9.8 L Hct 30.1 L MCH 26 L RDW 18.4 H Lymph % (Auto) 11.1 L Davis % (Auto) 7.9 H Lymph # Davis # 1.2 H Seg Neutrophils % 80.7 H Seg Neutrophils # 12.1 H Carbon Dioxide Glucose POC Glucose 169 H 143 H Calcium Lactate Dehydrogenase Total Protein Albumin Urine WBC (Auto) Urine Creatinine Ur Total Protein 24 Hr Urine Total Protein Crossmatch 09/24/17 11:40 WBC Hgb Hct MCH RDW Lymph % (Auto) Davis % (Auto) Lymph # Davis # Seg Neutrophils % Seg Neutrophils # Carbon Dioxide Glucose POC Glucose 155 H Calcium Lactate Dehydrogenase Total Protein Albumin Urine WBC (Auto) Urine Creatinine Ur Total Protein 24 Hr Urine Total Protein Crossmatch Laboratory Results - last 24 hr 09/21/17 09/23/17 09/24/17 17:08 21:18 05:19 WBC 15.0 H RBC 3.71 Hgb 9.8 L Hct 30.1 L MCV 81 MCH 26 L MCHC 32 RDW 18.4 H Plt Count 292 Lymph % (Auto) 11.1 L Davis % (Auto) 7.9 H Eos % (Auto) 0.0 Baso % (Auto) 0.3 Lymph # 1.7 Davis # 1.2 H Eos # 0.0 Baso # 0.0 Seg Neutrophils % 80.7 H Seg Neutrophils # 12.1 H Creatinine Estimated GFR POC Glucose 169 H Uric Acid AST ALT Lactate Dehydrogenase Crossmatch See Detail 09/24/17 09/24/17 09/24/17 05:19 09:23 11:40 WBC RBC Hgb Hct MCV MCH MCHC RDW Plt Count Lymph % (Auto) Davis % (Auto) Eos % (Auto) Baso % (Auto) Lymph # Davis # Eos # Baso # Seg Neutrophils % Seg Neutrophils # Creatinine 0.7 Estimated GFR > 60 POC Glucose 143 H 155 H Uric Acid 5.7 AST 14 ALT 19 Lactate Dehydrogenase 175 Crossmatch 09/24/17 16:07 WBC RBC Hgb Hct MCV MCH MCHC RDW Plt Count Lymph % (Auto) Davis % (Auto) Eos % (Auto) Baso % (Auto) Lymph # Davis # Eos # Baso # Seg Neutrophils % Seg Neutrophils # Creatinine Estimated GFR POC Glucose 70 Uric Acid AST ALT Lactate Dehydrogenase Crossmatch
[2017-09-24] MEDS: AMBIEN PO PRN (22:37)
[2017-09-25] MEDS: LACTATED RINGERS 1,000 ML IV SCH (06:49)
--- NOTE | 2017-09-25 08:20 | Progress Note ---
Subjective - Subjective Date of service: 09/25/17 Principal diagnosis: vaginal bleeding in third trimester, aburption Patient reports: vaginal bleeding (none overnight ), no new complaints, no loss of fluid (decreased to spotting ) Objective - Vital Signs Vital Signs: Vital Signs - 12hr 09/24/17 09/24/17 09/25/17 22:30 22:37 00:00 Temperature 98.5 F Pulse Rate 95 H 88 92 H Respiratory 18 Rate Blood Pressure 180/94 Blood Pressure [Left] Blood Pressure 170/84 158/74 [Right] 09/25/17 09/25/17 09/25/17 04:00 07:00 07:47 Temperature 98 F 97.2 F L Pulse Rate 88 88 93 H Respiratory 16 24 Rate Blood Pressure Blood Pressure 137/73 [Left] Blood Pressure 160/74 156/80 137/73 [Right] - Exam Abdomen: Present: soft. Absent: tenderness - Labs Labs: Abnormal Labs 09/21/17 09/21/17 09/21/17 16:52 17:00 17:08 WBC Hgb Hct MCH RDW Lymph % (Auto) [place] % (Auto) Lymph # [place] # Seg Neutrophils % Seg Neutrophils # Carbon Dioxide Glucose POC Glucose 47 L Calcium Lactate Dehydrogenase Total Protein Albumin Urine WBC (Auto) 10.0 H Urine Creatinine Ur Total Protein 24 Hr Urine Total Protein Crossmatch See Detail 09/21/17 09/21/17 09/22/17 17:10 17:10 00:00 WBC Hgb Hct MCH 26 L RDW 18.6 H Lymph % (Auto) [place] % (Auto) Lymph # [place] # Seg Neutrophils % Seg Neutrophils # Carbon Dioxide Glucose POC Glucose Calcium Lactate Dehydrogenase 223 H Total Protein Albumin Urine WBC (Auto) Urine Creatinine 93.1 H Ur Total Protein 24 Hr 1386.00 H Urine Total Protein 77 H Crossmatch 09/22/17 09/22/17 09/22/17 09:24 09:54 12:52 WBC Hgb 10.0 L Hct MCH 26 L 26 L RDW 18.3 H 18.7 H Lymph % (Auto) 11.6 L [place] % (Auto) Lymph # [place] # Seg Neutrophils % 83.3 H Seg Neutrophils # 9.0 H Carbon Dioxide Glucose POC Glucose 117 H Calcium Lactate Dehydrogenase Total Protein Albumin Urine WBC (Auto) Urine Creatinine Ur Total Protein 24 Hr Urine Total Protein Crossmatch 09/22/17 09/22/17 09/22/17 12:52 14:24 16:09 WBC Hgb Hct MCH 27 L RDW 18.4 H Lymph % (Auto) 6.9 L [place] % (Auto) Lymph # 0.7 L [place] # Seg Neutrophils % 88.9 H Seg Neutrophils # 9.4 H Carbon Dioxide 18 L Glucose 255 H POC Glucose 255 H Calcium 8.3 L Lactate Dehydrogenase Total Protein 6.1 L Albumin 2.9 L Urine WBC (Auto) Urine Creatinine Ur Total Protein 24 Hr Urine Total Protein Crossmatch 09/22/17 09/22/17 09/22/17 18:37 21:29 22:48 WBC Hgb Hct MCH RDW Lymph % (Auto) [place] % (Auto) Lymph # [place] # Seg Neutrophils % Seg Neutrophils # Carbon Dioxide Glucose POC Glucose 262 H 231 H 181 H Calcium Lactate Dehydrogenase Total Protein Albumin Urine WBC (Auto) Urine Creatinine Ur Total Protein 24 Hr Urine Total Protein Crossmatch 09/23/17 09/23/17 09/23/17 07:54 10:25 15:03 WBC Hgb Hct MCH RDW Lymph % (Auto) [place] % (Auto) Lymph # [place] # Seg Neutrophils % Seg Neutrophils # Carbon Dioxide Glucose POC Glucose 134 H 191 H 240 H Calcium Lactate Dehydrogenase Total Protein Albumin Urine WBC (Auto) Urine Creatinine Ur Total Protein 24 Hr Urine Total Protein Crossmatch 09/23/17 09/24/17 09/24/17 21:18 05:19 09:23 WBC 15.0 H Hgb 9.8 L Hct 30.1 L MCH 26 L RDW 18.4 H Lymph % (Auto) 11.1 L [place] % (Auto) 7.9 H Lymph # [place] # 1.2 H Seg Neutrophils % 80.7 H Seg Neutrophils # 12.1 H Carbon Dioxide Glucose POC Glucose 169 H 143 H Calcium Lactate Dehydrogenase Total Protein Albumin Urine WBC (Auto) Urine Creatinine Ur Total Protein 24 Hr Urine Total Protein Crossmatch 09/24/17 09/24/17 09/25/17 11:40 18:57 06:39 WBC Hgb Hct MCH RDW Lymph % (Auto) [place] % (Auto) Lymph # [place] # Seg Neutrophils % Seg Neutrophils # Carbon Dioxide Glucose POC Glucose 155 H 144 H 67 L Calcium Lactate Dehydrogenase Total Protein Albumin Urine WBC (Auto) Urine Creatinine Ur Total Protein 24 Hr Urine Total Protein Crossmatch Laboratory Results - last 24 hr 09/21/17 09/24/17 09/24/17 17:08 09:23 11:40 POC Glucose 143 H 155 H Crossmatch See Detail 09/24/17 09/24/17 09/25/17 16:07 18:57 06:39 POC Glucose 70 144 H 67 L Crossmatch
[2017-09-25] MEDS: NORMODYNE PO SCH ×3 (08:37→20:37)
[2017-09-25] MEDS: HumuLIN R SUB-Q SCH ×6 (08:47→17:15)
--- NOTE | 2017-09-25 09:01 | Progress Note ---
Assessment and Plan - Patient Problems (1) Vaginal bleeding during , antepartum Current Visit: Yes Status: Acute (2) Chronic hypertension Current Visit: No Status: Acute (3) Diabetes in Current Visit: No Status: Acute Plan to address problem: will discuss with MFM to discontinue metformin and manage diabetes with insulin patient clinically stable Subjective - Subjective Date of service: 09/25/17 Principal diagnosis: vaginal bleeding in third trimester, aburption Interval history: 37y/o @ 28+2 weeks with chronic hypertension and IDDM. The patient reports GI discomfort with Metformin. The medication is causing her to have frequent bowel movements. She requests to be converted to an extended release metformin or to be managed solely with insulin. She reports movement. No leakage of fluid. BPP performed 09/24 was 8/. Improvement in blood pressures with bedrest. Patient reports: no new complaints, no loss of fluid (decreased to spotting ) Objective - Vital Signs Vital Signs: Vital Signs - 12hr 09/24/17 09/24/17 09/25/17 22:30 22:37 00:00 Temperature 98.5 F Pulse Rate 95 H 88 92 H Respiratory 18 Rate Blood Pressure 180/94 Blood Pressure [Left] Blood Pressure 170/84 158/74 [Right] 09/25/17 09/25/17 09/25/17 04:00 07:00 07:47 Temperature 98 F 97.2 F L Pulse Rate 88 88 93 H Respiratory 16 24 Rate Blood Pressure Blood Pressure 137/73 [Left] Blood Pressure 160/74 156/80 137/73 [Right] 09/25/17 08:37 Temperature Pulse Rate 110 H Respiratory Rate Blood Pressure 137/73 Blood Pressure [Left] Blood Pressure [Right] - Labs Labs: Abnormal Labs 09/21/17 09/21/17 09/21/17 16:52 17:00 17:08 WBC Hgb Hct MCH RDW Lymph % (Auto) [place] % (Auto) Lymph # [place] # Seg Neutrophils % Seg Neutrophils # Carbon Dioxide Glucose POC Glucose 47 L Calcium Lactate Dehydrogenase Total Protein Albumin Urine WBC (Auto) 10.0 H Urine Creatinine Ur Total Protein 24 Hr Urine Total Protein Crossmatch See Detail 09/21/17 09/21/17 09/22/17 17:10 17:10 00:00 WBC Hgb Hct MCH 26 L RDW 18.6 H Lymph % (Auto) [place] % (Auto) Lymph # [place] # Seg Neutrophils % Seg Neutrophils # Carbon Dioxide Glucose POC Glucose Calcium Lactate Dehydrogenase 223 H Total Protein Albumin Urine WBC (Auto) Urine Creatinine 93.1 H Ur Total Protein 24 Hr 1386.00 H Urine Total Protein 77 H Crossmatch 09/22/17 09/22/17 09/22/17 09:24 09:54 12:52 WBC Hgb 10.0 L Hct MCH 26 L 26 L RDW 18.3 H 18.7 H Lymph % (Auto) 11.6 L [place] % (Auto) Lymph # [place] # Seg Neutrophils % 83.3 H Seg Neutrophils # 9.0 H Carbon Dioxide Glucose POC Glucose 117 H Calcium Lactate Dehydrogenase Total Protein Albumin Urine WBC (Auto) Urine Creatinine Ur Total Protein 24 Hr Urine Total Protein Crossmatch 09/22/17 09/22/17 09/22/17 12:52 14:24 16:09 WBC Hgb Hct MCH 27 L RDW 18.4 H Lymph % (Auto) 6.9 L [place] % (Auto) Lymph # 0.7 L [place] # Seg Neutrophils % 88.9 H Seg Neutrophils # 9.4 H Carbon Dioxide 18 L Glucose 255 H POC Glucose 255 H Calcium 8.3 L Lactate Dehydrogenase Total Protein 6.1 L Albumin 2.9 L Urine WBC (Auto) Urine Creatinine Ur Total Protein 24 Hr Urine Total Protein Crossmatch 09/22/17 09/22/17 09/22/17 18:37 21:29 22:48 WBC Hgb Hct MCH RDW Lymph % (Auto) [place] % (Auto) Lymph # [place] # Seg Neutrophils % Seg Neutrophils # Carbon Dioxide Glucose POC Glucose 262 H 231 H 181 H Calcium Lactate Dehydrogenase Total Protein Albumin Urine WBC (Auto) Urine Creatinine Ur Total Protein 24 Hr Urine Total Protein Crossmatch 09/23/17 09/23/17 09/23/17 07:54 10:25 15:03 WBC Hgb Hct MCH RDW Lymph % (Auto) [place] % (Auto) Lymph # [place] # Seg Neutrophils % Seg Neutrophils # Carbon Dioxide Glucose POC Glucose 134 H 191 H 240 H Calcium Lactate Dehydrogenase Total Protein Albumin Urine WBC (Auto) Urine Creatinine Ur Total Protein 24 Hr Urine Total Protein Crossmatch 09/23/17 09/24/17 09/24/17 21:18 05:19 09:23 WBC 15.0 H Hgb 9.8 L Hct 30.1 L MCH 26 L RDW 18.4 H Lymph % (Auto) 11.1 L [place] % (Auto) 7.9 H Lymph # [place] # 1.2 H Seg Neutrophils % 80.7 H Seg Neutrophils # 12.1 H Carbon Dioxide Glucose POC Glucose 169 H 143 H Calcium Lactate Dehydrogenase Total Protein Albumin Urine WBC (Auto) Urine Creatinine Ur Total Protein 24 Hr Urine Total Protein Crossmatch 09/24/17 09/24/17 09/25/17 11:40 18:57 06:39 WBC Hgb Hct MCH RDW Lymph % (Auto) [place] % (Auto) Lymph # [place] # Seg Neutrophils % Seg Neutrophils # Carbon Dioxide Glucose POC Glucose 155 H 144 H 67 L Calcium Lactate Dehydrogenase Total Protein Albumin Urine WBC (Auto) Urine Creatinine Ur Total Protein 24 Hr Urine Total Protein Crossmatch Laboratory Results - last 24 hr 09/21/17 09/24/17 09/24/17 17:08 09:23 11:40 POC Glucose 143 H 155 H Crossmatch See Detail 09/24/17 09/24/17 09/25/17 16:07 18:57 06:39 POC Glucose 70 144 H 67 L Crossmatch
[2017-09-25] MEDS: PRENATAL VITAMIN PO SCH (11:05)
[2017-09-25] MEDS: GLUCOPHAGE PO SCH (12:48)
[2017-09-25] MEDS: WELLBUTRIN XL PO SCH (14:38)
[2017-09-25] MEDS: ALUM-MAG HYDROX-SIMETH 200-200-20MG/5ML PO PRN (17:11)
[2017-09-25] MEDS: AMBIEN PO PRN (22:12)
[2017-09-25] MEDS: PROCARDIA XL PO SCH (22:12)
[2017-09-26] MEDS: LACTATED RINGERS 1,000 ML IV SCH ×3 (06:26→23:52)
[2017-09-26] MEDS: HumuLIN R SUB-Q SCH ×6 (07:25→21:38)
--- NOTE | 2017-09-26 08:34 | Progress Note ---
Assessment and Plan A/P HD# IUP 28 weeks , chtn, type 2 DM, previous csec, suspected abruption vaginal bleeding stopped continuous monitoring await M recommendations on DM mgt with metformin/insulin continue BP mgt BPP today Subjective - Subjective Date of service: 09/26/17 Principal diagnosis: vaginal bleeding in third trimester, aburption Interval history: This is a 37 yo at 27+5 WEEKS came in c/o vaginal bleeding this am. she stated that she has changed her pads 3x since this am. She reports good fm no contractions nor pain. SHe denies any lightheadedness nor dizziness. no sob, cp. she is aptient of Premier since 7 weeks and been co managed with [facility] for high risk . She has TYPE 2 DIABETES on 88 u N and 64 u R in am and dinner 78 u R and before bed 84 U N. Metformin 500 mg BID. She also has cHTN on labetolol 100 mg bid. 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 She has had exposure to welbutrin and celexa. she has had a previous csec and desires repeat with undesired infertility with BTL. Patient reports: appetite normal, voiding normally, pain well controlled, flatus , ambulating normally : doing well Objective - Vital Signs Latest vital signs: Vital Signs Temp Pulse Resp BP BP Pulse Ox 09/26/17 08:03 99.5 F 97 H 18 158/88 99 09/26/17 04:04 98.1 F 93 H 18 164/94 09/26/17 00:04 97.9 F 18 09/25/17 20:37 95 H 167/83 09/25/17 20:00 99.4 F 20 09/25/17 16:33 97 F L 96 H 20 149/92 09/25/17 14:41 98 H 126/70 09/25/17 10:58 97.3 F L 95 H 24 133/71 98 09/25/17 08:37 110 H 137/73 Intake and Output 09/25/17 09/26/17 09/26/17 23:59 07:59 15:59 Other: # Voids Void 5 - Exam Breasts: Present: deferred Cardiovascular: Present: Regular rate, Normal S1 Lungs: Present: Clear to auscultation, Normal air movement Abdomen: Present: normal appearance, soft, normal bowel sounds. Absent: distention, tenderness, guarding Uterus: Present: normal, firm, fundal height below umbilicus. Absent: bogginess , tenderness Extremities: Present: normal Deep Tendon Reflex Grade: Normal +2 - Labs Labs: Abnormal lab results 09/25/17 09/25/17 09/26/17 Range/Units 11:08 15:45 06:16 POC Glucose 182 H 146 H 64 L (70-105)
[2017-09-26] MEDS: NORMODYNE PO SCH ×3 (09:01→19:52)
[2017-09-26] MEDS: PRENATAL VITAMIN PO SCH (10:21)
[2017-09-26] MEDS: WELLBUTRIN XL PO SCH (10:21)
[2017-09-26] MEDS: ALUM-MAG HYDROX-SIMETH 200-200-20MG/5ML PO PRN (11:40)
[2017-09-26] MEDS: GLUCOPHAGE PO SCH (13:26)
--- NOTE | 2017-09-26 13:26 | Progress Note ---
Assessment and Plan . IUP at 27 3/7 weeks' 2. Suspect placental abruption- bleeding stable 3. IDDM 4. Preeclampsia, severe by BP criteria, superimposed on essential HTN 5. Previous C/S 1. Continue hospitalization at least until complete resolution of vaginal bleeding/spotting 2. Serial PIH labs 3. BPP twice weekly 4. EFW q 2 weeks 5. SSI until 5-7 days after betamethasone, then adjust split-dose insulin as indicated 6. Deliver no later than 34 weeks' Subjective - Subjective Principal diagnosis: vaginal bleeding in third trimester, aburption Interval history: No complaints. Denies bleeding since yesterday when she noted some spotting after a bowel movement. Denies contractions. Good movement. Patient reports: no new complaints, no loss of fluid (decreased to spotting ) Objective - Vital Signs Vital Signs: Vital Signs - 12hr 09/26/17 09/26/17 09/26/17 04:04 08:03 09:01 Temperature 98.1 F 99.5 F Pulse Rate 93 H 97 H 95 H Respiratory 18 18 Rate Blood Pressure 158/88 Blood Pressure 164/94 158/88 [Left] O2 Sat by Pulse 99 Oximetry 09/26/17 11:43 Temperature 98.7 F Pulse Rate 95 H Respiratory 18 Rate Blood Pressure Blood Pressure 120/71 [Left] O2 Sat by Pulse 96 Oximetry - Exam Abdomen: Present: soft - Labs Labs: Abnormal Labs 09/21/17 09/21/17 09/21/17 16:52 17:00 17:08 WBC Hgb Hct MCH RDW Lymph % (Auto) [place] % (Auto) Lymph # [place] # Seg Neutrophils % Seg Neutrophils # Carbon Dioxide Glucose POC Glucose 47 L Calcium Lactate Dehydrogenase Total Protein Albumin Urine WBC (Auto) 10.0 H Urine Creatinine Ur Total Protein 24 Hr Urine Total Protein Crossmatch See Detail 09/21/17 09/21/17 09/22/17 17:10 17:10 00:00 WBC Hgb Hct MCH 26 L RDW 18.6 H Lymph % (Auto) [place] % (Auto) Lymph # [place] # Seg Neutrophils % Seg Neutrophils # Carbon Dioxide Glucose POC Glucose Calcium Lactate Dehydrogenase 223 H Total Protein Albumin Urine WBC (Auto) Urine Creatinine 93.1 H Ur Total Protein 24 Hr 1386.00 H Urine Total Protein 77 H Crossmatch 09/22/17 09/22/17 09/22/17 09:24 09:54 12:52 WBC Hgb 10.0 L Hct MCH 26 L 26 L RDW 18.3 H 18.7 H Lymph % (Auto) 11.6 L [place] % (Auto) Lymph # [place] # Seg Neutrophils % 83.3 H Seg Neutrophils # 9.0 H Carbon Dioxide Glucose POC Glucose 117 H Calcium Lactate Dehydrogenase Total Protein Albumin Urine WBC (Auto) Urine Creatinine Ur Total Protein 24 Hr Urine Total Protein Crossmatch 09/22/17 09/22/17 09/22/17 12:52 14:24 16:09 WBC Hgb Hct MCH 27 L RDW 18.4 H Lymph % (Auto) 6.9 L [place] % (Auto) Lymph # 0.7 L [place] # Seg Neutrophils % 88.9 H Seg Neutrophils # 9.4 H Carbon Dioxide 18 L Glucose 255 H POC Glucose 255 H Calcium 8.3 L Lactate Dehydrogenase Total Protein 6.1 L Albumin 2.9 L Urine WBC (Auto) Urine Creatinine Ur Total Protein 24 Hr Urine Total Protein Crossmatch 09/22/17 09/22/17 09/22/17 18:37 21:29 22:48 WBC Hgb Hct MCH RDW Lymph % (Auto) [place] % (Auto) Lymph # [place] # Seg Neutrophils % Seg Neutrophils # Carbon Dioxide Glucose POC Glucose 262 H 231 H 181 H Calcium Lactate Dehydrogenase Total Protein Albumin Urine WBC (Auto) Urine Creatinine Ur Total Protein 24 Hr Urine Total Protein Crossmatch 09/23/17 09/23/17 09/23/17 07:54 10:25 15:03 WBC Hgb Hct MCH RDW Lymph % (Auto) [place] % (Auto) Lymph # [place] # Seg Neutrophils % Seg Neutrophils # Carbon Dioxide Glucose POC Glucose 134 H 191 H 240 H Calcium Lactate Dehydrogenase Total Protein Albumin Urine WBC (Auto) Urine Creatinine Ur Total Protein 24 Hr Urine Total Protein Crossmatch 09/23/17 09/24/17 09/24/17 21:18 05:19 09:23 WBC 15.0 H Hgb 9.8 L Hct 30.1 L MCH 26 L RDW 18.4 H Lymph % (Auto) 11.1 L [place] % (Auto) 7.9 H Lymph # [place] # 1.2 H Seg Neutrophils % 80.7 H Seg Neutrophils # 12.1 H Carbon Dioxide Glucose POC Glucose 169 H 143 H Calcium Lactate Dehydrogenase Total Protein Albumin Urine WBC (Auto) Urine Creatinine Ur Total Protein 24 Hr Urine Total Protein Crossmatch 09/24/17 09/24/17 09/25/17 11:40 18:57 06:39 WBC Hgb Hct MCH RDW Lymph % (Auto) [place] % (Auto) Lymph # [place] # Seg Neutrophils % Seg Neutrophils # Carbon Dioxide Glucose POC Glucose 155 H 144 H 67 L Calcium Lactate Dehydrogenase Total Protein Albumin Urine WBC (Auto) Urine Creatinine Ur Total Protein 24 Hr Urine Total Protein Crossmatch 09/25/17 09/25/17 09/26/17 11:08 15:45 06:16 WBC Hgb Hct MCH RDW Lymph % (Auto) [place] % (Auto) Lymph # [place] # Seg Neutrophils % Seg Neutrophils # Carbon Dioxide Glucose POC Glucose 182 H 146 H 64 L Calcium Lactate Dehydrogenase Total Protein Albumin Urine WBC (Auto) Urine Creatinine Ur Total Protein 24 Hr Urine Total Protein Crossmatch 09/26/17 11:34 WBC Hgb Hct MCH RDW Lymph % (Auto) [place] % (Auto) Lymph # [place] # Seg Neutrophils % Seg Neutrophils # Carbon Dioxide Glucose POC Glucose 156 H Calcium Lactate Dehydrogenase Total Protein Albumin Urine WBC (Auto) Urine Creatinine Ur Total Protein 24 Hr Urine Total Protein Crossmatch Laboratory Results - last 24 hr 09/25/17 09/25/17 09/26/17 15:45 20:47 06:16 POC Glucose 146 H 105 64 L 09/26/17 11:34 POC Glucose 156 H
[2017-09-26] MEDS: PROCARDIA XL PO SCH (21:46)
[2017-09-26] MEDS: AMBIEN PO PRN (22:26)
[2017-09-27] MEDS: LACTATED RINGERS 1,000 ML IV SCH ×2 (06:13→23:41)
[2017-09-27] MEDS: HumuLIN R SUB-Q SCH ×4 (07:09→17:24)
[2017-09-27] MEDS: NORMODYNE PO SCH ×3 (08:03→20:21)
[2017-09-27 08:16] LABS: Hematocrit 30.3 % (30.3-42.9); Hemoglobin 9.8 gm/dl (10.1-14.3); Mean Corpuscular HGB Conc 32 % (30-34); Mean Corpuscular Hemoglobin 26 pg (28-32); Mean Corpuscular Volume 81 fl (79-97); Platelet Count 300 K/mm3 (140-440); Red Blood Count 3.73 M/mm3 (3.65-5.03); Red Cell Distribution Width 18.6 % (13.2-15.2)
[2017-09-27 08:41] LABS: Alanine Aminotransferase 24 units/L (7-56)
[2017-09-27] MEDS: PRENATAL VITAMIN PO SCH (10:30)
[2017-09-27] MEDS: WELLBUTRIN XL PO SCH (10:30)
--- NOTE | 2017-09-27 12:05 | Progress Note ---
Assessment and Plan A: 1. IUP at 27 4/7 weeks EDC 12/23/2017 by 7 1/7 week sono performed on 05/07/2017 2. Suspect placental abruption- bleeding resolved 3. IDDM 4. Preeclampsia, severe by BP criteria, superimposed on essential HTN 5. Previous C/S 6. s/p BMZ Rec: 1. Twice weekly BPP - f/u results of the BPP performed today 2. EFW q 2 weeks 3. Monitor for labor ,bleeding, distress 4. Deliver no later than 34 weeks' 5. Insulin regimen adjusted Metformin can be discontinued if the patient is unable to tolerate the GI Side effects Subjective - Subjective Date of service: 09/27/17 Principal diagnosis: vaginal bleeding in third trimester, aburption Interval history: She reports that the spotting has resolved Denied cramping ,bleeding, LOF, MURRELL, visual changes, CP, RUQ pain Patient reports: no new complaints, no loss of fluid (decreased to spotting ) Objective - Vital Signs Vital Signs: Vital Signs - 12hr 09/27/17 09/27/17 09/27/17 01:16 03:43 07:18 Temperature 98.8 F 97.8 F 99.3 F Pulse Rate 102 H 92 H 103 H Respiratory 20 20 18 Rate Blood Pressure Blood Pressure 149/84 148/83 124/67 [Right] O2 Sat by Pulse 98 Oximetry 09/27/17 08:03 Temperature Pulse Rate 100 H Respiratory Rate Blood Pressure 124/67 Blood Pressure [Right] O2 Sat by Pulse Oximetry - Exam Narrative Exam: NAD sitting up in bed Abdomen: Present: normal appearance, soft, normal bowel sounds Uterine Contraction Pattern: Absent Extremities: normal, edema (absent) - Labs Labs: Abnormal Labs 09/21/17 09/21/17 09/21/17 16:52 17:00 17:08 WBC Hgb Hct MCH RDW Lymph % (Auto) [place] % (Auto) Lymph # [place] # Seg Neutrophils % Seg Neutrophils # Carbon Dioxide Glucose POC Glucose 47 L Calcium Lactate Dehydrogenase Total Protein Albumin Urine WBC (Auto) 10.0 H Urine Creatinine Ur Total Protein 24 Hr Urine Total Protein Crossmatch See Detail 09/21/17 09/21/17 09/22/17 17:10 17:10 00:00 WBC Hgb Hct MCH 26 L RDW 18.6 H Lymph % (Auto) [place] % (Auto) Lymph # [place] # Seg Neutrophils % Seg Neutrophils # Carbon Dioxide Glucose POC Glucose Calcium Lactate Dehydrogenase 223 H Total Protein Albumin Urine WBC (Auto) Urine Creatinine 93.1 H Ur Total Protein 24 Hr 1386.00 H Urine Total Protein 77 H Crossmatch 09/22/17 09/22/17 09/22/17 09:24 09:54 12:52 WBC Hgb 10.0 L Hct MCH 26 L 26 L RDW 18.3 H 18.7 H Lymph % (Auto) 11.6 L [place] % (Auto) Lymph # [place] # Seg Neutrophils % 83.3 H Seg Neutrophils # 9.0 H Carbon Dioxide Glucose POC Glucose 117 H Calcium Lactate Dehydrogenase Total Protein Albumin Urine WBC (Auto) Urine Creatinine Ur Total Protein 24 Hr Urine Total Protein Crossmatch 09/22/17 09/22/17 09/22/17 12:52 14:24 16:09 WBC Hgb Hct MCH 27 L RDW 18.4 H Lymph % (Auto) 6.9 L [place] % (Auto) Lymph # 0.7 L [place] # Seg Neutrophils % 88.9 H Seg Neutrophils # 9.4 H Carbon Dioxide 18 L Glucose 255 H POC Glucose 255 H Calcium 8.3 L Lactate Dehydrogenase Total Protein 6.1 L Albumin 2.9 L Urine WBC (Auto) Urine Creatinine Ur Total Protein 24 Hr Urine Total Protein Crossmatch 09/22/17 09/22/17 09/22/17 18:37 21:29 22:48 WBC Hgb Hct MCH RDW Lymph % (Auto) [place] % (Auto) Lymph # [place] # Seg Neutrophils % Seg Neutrophils # Carbon Dioxide Glucose POC Glucose 262 H 231 H 181 H Calcium Lactate Dehydrogenase Total Protein Albumin Urine WBC (Auto) Urine Creatinine Ur Total Protein 24 Hr Urine Total Protein Crossmatch 09/23/17 09/23/17 09/23/17 07:54 10:25 15:03 WBC Hgb Hct MCH RDW Lymph % (Auto) [place] % (Auto) Lymph # [place] # Seg Neutrophils % Seg Neutrophils # Carbon Dioxide Glucose POC Glucose 134 H 191 H 240 H Calcium Lactate Dehydrogenase Total Protein Albumin Urine WBC (Auto) Urine Creatinine Ur Total Protein 24 Hr Urine Total Protein Crossmatch 09/23/17 09/24/17 09/24/17 21:18 05:19 09:23 WBC 15.0 H Hgb 9.8 L Hct 30.1 L MCH 26 L RDW 18.4 H Lymph % (Auto) 11.1 L [place] % (Auto) 7.9 H Lymph # [place] # 1.2 H Seg Neutrophils % 80.7 H Seg Neutrophils # 12.1 H Carbon Dioxide Glucose POC Glucose 169 H 143 H Calcium Lactate Dehydrogenase Total Protein Albumin Urine WBC (Auto) Urine Creatinine Ur Total Protein 24 Hr Urine Total Protein Crossmatch 09/24/17 09/24/17 09/25/17 11:40 18:57 06:39 WBC Hgb Hct MCH RDW Lymph % (Auto) [place] % (Auto) Lymph # [place] # Seg Neutrophils % Seg Neutrophils # Carbon Dioxide Glucose POC Glucose 155 H 144 H 67 L Calcium Lactate Dehydrogenase Total Protein Albumin Urine WBC (Auto) Urine Creatinine Ur Total Protein 24 Hr Urine Total Protein Crossmatch 09/25/17 09/25/17 09/26/17 11:08 15:45 06:16 WBC Hgb Hct MCH RDW Lymph % (Auto) [place] % (Auto) Lymph # [place] # Seg Neutrophils % Seg Neutrophils # Carbon Dioxide Glucose POC Glucose 182 H 146 H 64 L Calcium Lactate Dehydrogenase Total Protein Albumin Urine WBC (Auto) Urine Creatinine Ur Total Protein 24 Hr Urine Total Protein Crossmatch 09/26/17 09/26/17 09/27/17 11:34 15:15 07:55 WBC 12.5 H Hgb 9.8 L Hct MCH 26 L RDW 18.6 H Lymph % (Auto) [place] % (Auto) Lymph # [place] # Seg Neutrophils % Seg Neutrophils # Carbon Dioxide Glucose POC Glucose 156 H 135 H Calcium Lactate Dehydrogenase Total Protein Albumin Urine WBC (Auto) Urine Creatinine Ur Total Protein 24 Hr Urine Total Protein Crossmatch 09/27/17 10:33 WBC Hgb Hct MCH RDW Lymph % (Auto) [place] % (Auto) Lymph # [place] # Seg Neutrophils % Seg Neutrophils # Carbon Dioxide Glucose POC Glucose 173 H Calcium Lactate Dehydrogenase Total Protein Albumin Urine WBC (Auto) Urine Creatinine Ur Total Protein 24 Hr Urine Total Protein Crossmatch Laboratory Results - last 24 hr 09/26/17 09/26/17 09/26/17 15:15 19:48 21:48 WBC RBC Hgb Hct MCV MCH MCHC RDW Plt Count Creatinine Estimated GFR POC Glucose 135 H 95 83 Uric Acid AST ALT Lactate Dehydrogenase 09/27/17 09/27/17 09/27/17 05:53 07:55 07:55 WBC 12.5 H RBC 3.73 Hgb 9.8 L Hct 30.3 MCV 81 MCH 26 L MCHC 32 RDW 18.6 H Plt Count 300 Creatinine 0.7 Estimated GFR > 60 POC Glucose 97 Uric Acid 5.0 AST 16 ALT 24 Lactate Dehydrogenase 170 09/27/17 10:33 WBC RBC Hgb Hct MCV MCH MCHC RDW Plt Count Creatinine Estimated GFR POC Glucose 173 H Uric Acid AST ALT Lactate Dehydrogenase - Results US- obstetric: other (BPP performed today - final report pending - prelim BPP 01/16 FHR 155bpm)
--- NOTE | 2017-09-27 12:22 | Ultrasound Report ---
ULTRASOUND BIOPHYSICAL PROFILE: History: well being Technique: Transabdominal ultrasound with Doppler interrogation. 2 - breathing movements 2 - movements 2 - posture and tone 2 - Qualitative amniotic fluid volume 8 - TOTAL SCORE OF POSSIBLE 8 Heart Rate (bpm) 155
[2017-09-27] MEDS: GLUCOPHAGE PO SCH (12:37)
--- NOTE | 2017-09-27 13:24 | Progress Note ---
Assessment and Plan A/P HD# 1. IUP 27+4 weeks , chtn, type 2 DM, previous csec, suspected abruption 2. Suspect placental abruption- bleeding resolved 3. IDDM 4. Preeclampsia, severe by BP criteria, superimposed on essential HTN 5. Previous C/S 6. s/p BMZ 1. Twice weekly BPP will check today 2. EFW q 2 weeks ( order for next week0 3. Monitor for labor ,bleeding, distress 4. MFM recommend delviery by 34 weeks 5.follow mgt of insulin per MFM Subjective - Subjective Date of service: 09/27/17 Principal diagnosis: vaginal bleeding in third trimester, aburption, Pree Interval history: This is a 37 yo at 27+5 WEEKS came in c/o vaginal bleeding this am. she stated that she has changed her pads 3x since this am. She reports good fm no contractions nor pain. SHe denies any lightheadedness nor dizziness. no sob, cp. she is aptient of Premier since 7 weeks and been co managed with [facility] for high risk . She has TYPE 2 DIABETES on 88 u N and 64 u R in am and dinner 78 u R and before bed 84 U N. Metformin 500 mg BID. She also has cHTN on labetolol 100 mg bid. 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 She has had exposure to welbutrin and celexa. she has had a previous csec and desires repeat with undesired infertility with BTL. Patient reports: no new complaints, no loss of fluid (decreased to spotting ) Objective - Vital Signs Vital Signs: Vital Signs - 12hr 09/27/17 09/27/17 09/27/17 03:43 07:18 08:03 Temperature 97.8 F 99.3 F Pulse Rate 92 H 103 H 100 H Respiratory 20 18 Rate Blood Pressure 124/67 Blood Pressure 148/83 124/67 [Right] O2 Sat by Pulse 98 Oximetry - Exam Breasts: normal Cardiovascular: Regular rate, Normal S1 Lungs: Clear to auscultation, Normal air movement Abdomen: Present: normal appearance, soft, normal bowel sounds. Absent: distention, tenderness, guarding Vulva: both: normal Uterus: Present: normal, firm FHR: category 1 - Labs Labs: Abnormal Labs 09/21/17 09/21/17 09/21/17 16:52 17:00 17:08 WBC Hgb Hct MCH RDW Lymph % (Auto) [place] % (Auto) Lymph # [place] # Seg Neutrophils % Seg Neutrophils # Carbon Dioxide Glucose POC Glucose 47 L Calcium Lactate Dehydrogenase Total Protein Albumin Urine WBC (Auto) 10.0 H Urine Creatinine Ur Total Protein 24 Hr Urine Total Protein Crossmatch See Detail 09/21/17 09/21/17 09/22/17 17:10 17:10 00:00 WBC Hgb Hct MCH 26 L RDW 18.6 H Lymph % (Auto) [place] % (Auto) Lymph # [place] # Seg Neutrophils % Seg Neutrophils # Carbon Dioxide Glucose POC Glucose Calcium Lactate Dehydrogenase 223 H Total Protein Albumin Urine WBC (Auto) Urine Creatinine 93.1 H Ur Total Protein 24 Hr 1386.00 H Urine Total Protein 77 H Crossmatch 09/22/17 09/22/17 09/22/17 09:24 09:54 12:52 WBC Hgb 10.0 L Hct MCH 26 L 26 L RDW 18.3 H 18.7 H Lymph % (Auto) 11.6 L [place] % (Auto) Lymph # [place] # Seg Neutrophils % 83.3 H Seg Neutrophils # 9.0 H Carbon Dioxide Glucose POC Glucose 117 H Calcium Lactate Dehydrogenase Total Protein Albumin Urine WBC (Auto) Urine Creatinine Ur Total Protein 24 Hr Urine Total Protein Crossmatch 09/22/17 09/22/17 09/22/17 12:52 14:24 16:09 WBC Hgb Hct MCH 27 L RDW 18.4 H Lymph % (Auto) 6.9 L [place] % (Auto) Lymph # 0.7 L [place] # Seg Neutrophils % 88.9 H Seg Neutrophils # 9.4 H Carbon Dioxide 18 L Glucose 255 H POC Glucose 255 H Calcium 8.3 L Lactate Dehydrogenase Total Protein 6.1 L Albumin 2.9 L Urine WBC (Auto) Urine Creatinine Ur Total Protein 24 Hr Urine Total Protein Crossmatch 09/22/17 09/22/17 09/22/17 18:37 21:29 22:48 WBC Hgb Hct MCH RDW Lymph % (Auto) [place] % (Auto) Lymph # [place] # Seg Neutrophils % Seg Neutrophils # Carbon Dioxide Glucose POC Glucose 262 H 231 H 181 H Calcium Lactate Dehydrogenase Total Protein Albumin Urine WBC (Auto) Urine Creatinine Ur Total Protein 24 Hr Urine Total Protein Crossmatch 09/23/17 09/23/1718 07:54 10:25 15:03 WBC Hgb Hct MCH RDW Lymph % (Auto) [place] % (Auto) Lymph # [place] # Seg Neutrophils % Seg Neutrophils # Carbon Dioxide Glucose POC Glucose 134 H 191 H 240 H Calcium Lactate Dehydrogenase Total Protein Albumin Urine WBC (Auto) Urine Creatinine Ur Total Protein 24 Hr Urine Total Protein Crossmatch 09/23/17 09/24/17 09/24/17 21:18 05:19 09:23 WBC 15.0 H Hgb 9.8 L Hct 30.1 L MCH 26 L RDW 18.4 H Lymph % (Auto) 11.1 L [place] % (Auto) 7.9 H Lymph # [place] # 1.2 H Seg Neutrophils % 80.7 H Seg Neutrophils # 12.1 H Carbon Dioxide Glucose POC Glucose 169 H 143 H Calcium Lactate Dehydrogenase Total Protein Albumin Urine WBC (Auto) Urine Creatinine Ur Total Protein 24 Hr Urine Total Protein Crossmatch 09/24/17 09/24/17 09/25/17 11:40 18:57 06:39 WBC Hgb Hct MCH RDW Lymph % (Auto) [place] % (Auto) Lymph # [place] # Seg Neutrophils % Seg Neutrophils # Carbon Dioxide Glucose POC Glucose 155 H 144 H 67 L Calcium Lactate Dehydrogenase Total Protein Albumin Urine WBC (Auto) Urine Creatinine Ur Total Protein 24 Hr Urine Total Protein Crossmatch 09/25/17 09/25/17 09/26/17 11:08 15:45 06:16 WBC Hgb Hct MCH RDW Lymph % (Auto) [place] % (Auto) Lymph # [place] # Seg Neutrophils % Seg Neutrophils # Carbon Dioxide Glucose POC Glucose 182 H 146 H 64 L Calcium Lactate Dehydrogenase Total Protein Albumin Urine WBC (Auto) Urine Creatinine Ur Total Protein 24 Hr Urine Total Protein Crossmatch 09/26/17 09/26/17 09/27/17 11:34 15:15 07:55 WBC 12.5 H Hgb 9.8 L Hct MCH 26 L RDW 18.6 H Lymph % (Auto) [place] % (Auto) Lymph # [place] # Seg Neutrophils % Seg Neutrophils # Carbon Dioxide Glucose POC Glucose 156 H 135 H Calcium Lactate Dehydrogenase Total Protein Albumin Urine WBC (Auto) Urine Creatinine Ur Total Protein 24 Hr Urine Total Protein Crossmatch 09/27/17 10:33 WBC Hgb Hct MCH RDW Lymph % (Auto) [place] % (Auto) Lymph # [place] # Seg Neutrophils % Seg Neutrophils # Carbon Dioxide Glucose POC Glucose 173 H Calcium Lactate Dehydrogenase Total Protein Albumin Urine WBC (Auto) Urine Creatinine Ur Total Protein 24 Hr Urine Total Protein Crossmatch Laboratory Results - last 24 hr 09/26/17 09/26/17 09/26/17 15:15 19:48 21:48 WBC RBC Hgb Hct MCV MCH MCHC RDW Plt Count Creatinine Estimated GFR POC Glucose 135 H 95 83 Uric Acid AST ALT Lactate Dehydrogenase 09/27/17 09/27/17 09/27/17 05:53 07:55 07:55 WBC 12.5 H RBC 3.73 Hgb 9.8 L Hct 30.3 MCV 81 MCH 26 L MCHC 32 RDW 18.6 H Plt Count 300 Creatinine 0.7 Estimated GFR > 60 POC Glucose 97 Uric Acid 5.0 AST 16 ALT 24 Lactate Dehydrogenase 170 09/27/17 10:33 WBC RBC Hgb Hct MCV MCH MCHC RDW Plt Count Creatinine Estimated GFR POC Glucose 173 H Uric Acid AST ALT Lactate Dehydrogenase
[2017-09-27] MEDS ORDERED: HumuLIN R SUB-Q SCH (14:00)
[2017-09-27 19:59] LABS: Bilirubin,Urine NEG (Negative); Blood,Urine NEG (Negative); Color,Urine Yellow (Yellow); Mucus,Urine 1+ /HPF; Protein,Urine <15 mg/dL mg/dL (Negative); Urobilinogen,Urine < 2.0 mg/dL (<2.0)
[2017-09-27] MEDS: PROCARDIA XL PO SCH (22:10)
[2017-09-27] MEDS: AMBIEN PO PRN (22:14)
--- NOTE | 2017-09-28 09:32 | Progress Note ---
Assessment and Plan A: IUP at 28w5d s/p 2 doses of betamethasone Vaginal bleeding consistent with placental abruption- no bleeding today Type II DM on scheduled insulin Chronic HTN with superimposed preeclampsia on PO meds; plan to deliver no later than 34 wks Genital Herpes Previous x 1 Undesired Fertility- BTL consent signed and on chart Umbilical Hernia Obesity P: Continue current management Serial PIH labs- last set 09/27/17 BPP twice weekly- last ultrasound 09/27/17 EFW q 2 weeks- last weight at outpatient [facility] visit Subjective - Subjective Date of service: 09/28/17 Principal diagnosis: vaginal bleeding in third trimester, aburption, Pree Interval history: Pt reports that she had no bleeding overnight. She is feeling better regarding her GI complaints now that her Metformin has been discontinued. She is a little sad today that she may remain hospitalized until delivery. Patient reports: no new complaints, no loss of fluid (decreased to spotting ), no vaginal bleeding Objective - Vital Signs Vital Signs: Vital Signs - 12hr 09/28/17 09/28/17 00:00 04:10 Temperature 98 F Pulse Rate 89 103 H Respiratory 16 18 Rate Blood Pressure 142/67 132/70 [Right] O2 Sat by Pulse 100 99 Oximetry - Exam Breasts: deferred Cardiovascular: Regular rate Lungs: Clear to auscultation Abdomen: Present: soft (obese, gravid ) FHR: auscultation normal Extremities: normal - Labs Labs: Abnormal Labs 09/21/17 09/21/17 09/21/17 16:52 17:00 17:08 WBC Hgb Hct MCH RDW Lymph % (Auto) [place] % (Auto) Lymph # [place] # Seg Neutrophils % Seg Neutrophils # Carbon Dioxide Glucose POC Glucose 47 L Calcium Lactate Dehydrogenase Total Protein Albumin Urine WBC (Auto) 10.0 H Urine Creatinine Ur Total Protein 24 Hr Urine Total Protein Crossmatch See Detail 09/21/17 09/21/17 09/22/17 17:10 17:10 00:00 WBC Hgb Hct MCH 26 L RDW 18.6 H Lymph % (Auto) [place] % (Auto) Lymph # [place] # Seg Neutrophils % Seg Neutrophils # Carbon Dioxide Glucose POC Glucose Calcium Lactate Dehydrogenase 223 H Total Protein Albumin Urine WBC (Auto) Urine Creatinine 93.1 H Ur Total Protein 24 Hr 1386.00 H Urine Total Protein 77 H Crossmatch 09/22/17 09/22/17 09/22/17 09:24 09:54 12:52 WBC Hgb 10.0 L Hct MCH 26 L 26 L RDW 18.3 H 18.7 H Lymph % (Auto) 11.6 L [place] % (Auto) Lymph # [place] # Seg Neutrophils % 83.3 H Seg Neutrophils # 9.0 H Carbon Dioxide Glucose POC Glucose 117 H Calcium Lactate Dehydrogenase Total Protein Albumin Urine WBC (Auto) Urine Creatinine Ur Total Protein 24 Hr Urine Total Protein Crossmatch 09/22/17 09/22/17 09/22/17 12:52 14:24 16:09 WBC Hgb Hct MCH 27 L RDW 18.4 H Lymph % (Auto) 6.9 L [place] % (Auto) Lymph # 0.7 L [place] # Seg Neutrophils % 88.9 H Seg Neutrophils # 9.4 H Carbon Dioxide 18 L Glucose 255 H POC Glucose 255 H Calcium 8.3 L Lactate Dehydrogenase Total Protein 6.1 L Albumin 2.9 L Urine WBC (Auto) Urine Creatinine Ur Total Protein 24 Hr Urine Total Protein Crossmatch 09/22/17 09/22/17 09/22/17 18:37 21:29 22:48 WBC Hgb Hct MCH RDW Lymph % (Auto) [place] % (Auto) Lymph # [place] # Seg Neutrophils % Seg Neutrophils # Carbon Dioxide Glucose POC Glucose 262 H 231 H 181 H Calcium Lactate Dehydrogenase Total Protein Albumin Urine WBC (Auto) Urine Creatinine Ur Total Protein 24 Hr Urine Total Protein Crossmatch 09/23/17 09/23/17 09/23/17 07:54 10:25 15:03 WBC Hgb Hct MCH RDW Lymph % (Auto) [place] % (Auto) Lymph # [place] # Seg Neutrophils % Seg Neutrophils # Carbon Dioxide Glucose POC Glucose 134 H 191 H 240 H Calcium Lactate Dehydrogenase Total Protein Albumin Urine WBC (Auto) Urine Creatinine Ur Total Protein 24 Hr Urine Total Protein Crossmatch 09/23/17 09/24/17 09/24/17 21:18 05:19 09:23 WBC 15.0 H Hgb 9.8 L Hct 30.1 L MCH 26 L RDW 18.4 H Lymph % (Auto) 11.1 L [place] % (Auto) 7.9 H Lymph # [place] # 1.2 H Seg Neutrophils % 80.7 H Seg Neutrophils # 12.1 H Carbon Dioxide Glucose POC Glucose 169 H 143 H Calcium Lactate Dehydrogenase Total Protein Albumin Urine WBC (Auto) Urine Creatinine Ur Total Protein 24 Hr Urine Total Protein Crossmatch 09/24/17 09/24/17 09/25/17 11:40 18:57 06:39 WBC Hgb Hct MCH RDW Lymph % (Auto) [place] % (Auto) Lymph # [place] # Seg Neutrophils % Seg Neutrophils # Carbon Dioxide Glucose POC Glucose 155 H 144 H 67 L Calcium Lactate Dehydrogenase Total Protein Albumin Urine WBC (Auto) Urine Creatinine Ur Total Protein 24 Hr Urine Total Protein Crossmatch 09/25/17 09/25/17 09/26/17 11:08 15:45 06:16 WBC Hgb Hct MCH RDW Lymph % (Auto) [place] % (Auto) Lymph # [place] # Seg Neutrophils % Seg Neutrophils # Carbon Dioxide Glucose POC Glucose 182 H 146 H 64 L Calcium Lactate Dehydrogenase Total Protein Albumin Urine WBC (Auto) Urine Creatinine Ur Total Protein 24 Hr Urine Total Protein Crossmatch 09/26/17 09/26/17 09/27/17 11:34 15:15 07:55 WBC 12.5 H Hgb 9.8 L Hct MCH 26 L RDW 18.6 H Lymph % (Auto) [place] % (Auto) Lymph # [place] # Seg Neutrophils % Seg Neutrophils # Carbon Dioxide Glucose POC Glucose 156 H 135 H Calcium Lactate Dehydrogenase Total Protein Albumin Urine WBC (Auto) Urine Creatinine Ur Total Protein 24 Hr Urine Total Protein Crossmatch 09/27/17 09/27/17 09/27/17 10:33 14:30 19:16 WBC Hgb Hct MCH RDW Lymph % (Auto) [place] % (Auto) Lymph # [place] # Seg Neutrophils % Seg Neutrophils # Carbon Dioxide Glucose POC Glucose 173 H 130 H 150 H Calcium Lactate Dehydrogenase Total Protein Albumin Urine WBC (Auto) Urine Creatinine Ur Total Protein 24 Hr Urine Total Protein Crossmatch 09/28/17 00:03 WBC Hgb Hct MCH RDW Lymph % (Auto) [place] % (Auto) Lymph # [place] # Seg Neutrophils % Seg Neutrophils # Carbon Dioxide Glucose POC Glucose 130 H Calcium Lactate Dehydrogenase Total Protein Albumin Urine WBC (Auto) Urine Creatinine Ur Total Protein 24 Hr Urine Total Protein Crossmatch Laboratory Results - last 24 hr 09/27/17 09/27/17 09/27/17 10:33 14:30 17:20 POC Glucose 173 H 130 H Urine Color Yellow Urine Turbidity Clear Urine pH 7.0 Ur Specific [place] 1.015 Urine Protein <15 mg/dl Urine Glucose (UA) Neg Urine Ketones Neg Urine Blood Neg Urine Nitrite Neg Urine Bilirubin Neg Urine Urobilinogen < 2.0 Ur Leukocyte Esterase Neg Urine WBC (Auto) 2.0 Urine RBC (Auto) 2.0 U Epithel Cells (Auto) 4.0 Urine Mucus 1+ 09/27/17 09/28/17 09/28/17 19:16 00:03 08:03 POC Glucose 150 H 130 H 100 Urine Color Urine Turbidity Urine pH Ur Specific [place] Urine Protein Urine Glucose (UA) Urine Ketones Urine Blood Urine Nitrite Urine Bilirubin Urine Urobilinogen Ur Leukocyte Esterase Urine WBC (Auto) Urine RBC (Auto) U Epithel Cells (Auto) Urine Mucus
[2017-09-28] MEDS: WELLBUTRIN XL PO SCH (11:05)
[2017-09-28] MEDS: PRENATAL VITAMIN PO SCH (11:05)
[2017-09-28] MEDS: NORMODYNE PO SCH ×3 (11:05→20:38)
[2017-09-28] MEDS: LACTATED RINGERS 1,000 ML IV SCH (16:14)
[2017-09-28] MEDS: HumuLIN R SUB-Q SCH (17:07)
[2017-09-28] MEDS: ALUM-MAG HYDROX-SIMETH 200-200-20MG/5ML PO PRN (22:19)
[2017-09-28] MEDS: PROCARDIA XL PO SCH ×2 (22:19→22:20)
[2017-09-28] MEDS: AMBIEN PO PRN (22:21)
[2017-09-29] MEDS: LACTATED RINGERS 1,000 ML IV SCH (01:31)
[2017-09-29] MEDS: PRENATAL VITAMIN PO SCH (09:21)
[2017-09-29] MEDS: WELLBUTRIN XL PO SCH (09:21)
[2017-09-29] MEDS: NORMODYNE PO SCH ×3 (09:21→23:08)
--- NOTE | 2017-09-29 11:16 | Progress Note ---
Assessment and Plan A: 1. IUP at 27 6/7 weeks EDC 12/23/2017 by 7 1/7 week sono performed on 05/07/2017 2. Suspect placental abruption- bleeding resolved 3. IDDM 4. superimposed preeclampsia 5. Previous C/S 6. s/p BMZ Rec: 1. Bleeding precautions and preeclampsia precautions reviewed 2. Insulin titrated Continue Labetalol at current dose 3. Consider d/c to home if the maternal / status remains reassuring - please notify the patient of her insulin dosage if discharge is planned - next AMFM appt is 10/02/2017 at 400pm in the [place] office Subjective - Subjective Principal diagnosis: vaginal bleeding in third trimester, aburption, Pree Interval history: She reports that the spotting has resolved Denied cramping ,bleeding, LOF, MURRELL, visual changes, CP, RUQ pain Patient reports: no new complaints, no loss of fluid (decreased to spotting ), no vaginal bleeding Objective - Vital Signs Vital Signs: Vital Signs - 12hr 09/29/17 09/29/17 09/29/17 00:19 06:40 07:50 Temperature 97 F L 97.6 F 97.5 F L Pulse Rate 85 93 H Respiratory 18 18 16 Rate Blood Pressure 149/82 137/86 [Left] - Exam Narrative Exam: NAD sitting up in bed peripad - no blood Abdomen: Present: normal appearance, soft Uterine Contraction Monitor Mode: External (no palpable contractions) Extremities: normal - Labs Labs: Abnormal Labs 09/21/17 09/21/17 09/21/17 16:52 17:00 17:08 WBC Hgb Hct MCH RDW Lymph % (Auto) [place] % (Auto) Lymph # [place] # Seg Neutrophils % Seg Neutrophils # Carbon Dioxide Glucose POC Glucose 47 L Calcium Lactate Dehydrogenase Total Protein Albumin Urine WBC (Auto) 10.0 H Urine Creatinine Ur Total Protein 24 Hr Urine Total Protein Crossmatch See Detail 09/21/17 09/21/17 09/22/17 17:10 17:10 00:00 WBC Hgb Hct MCH 26 L RDW 18.6 H Lymph % (Auto) [place] % (Auto) Lymph # [place] # Seg Neutrophils % Seg Neutrophils # Carbon Dioxide Glucose POC Glucose Calcium Lactate Dehydrogenase 223 H Total Protein Albumin Urine WBC (Auto) Urine Creatinine 93.1 H Ur Total Protein 24 Hr 1386.00 H Urine Total Protein 77 H Crossmatch 09/22/17 09/22/17 09/22/17 09:24 09:54 12:52 WBC Hgb 10.0 L Hct MCH 26 L 26 L RDW 18.3 H 18.7 H Lymph % (Auto) 11.6 L [place] % (Auto) Lymph # [place] # Seg Neutrophils % 83.3 H Seg Neutrophils # 9.0 H Carbon Dioxide Glucose POC Glucose 117 H Calcium Lactate Dehydrogenase Total Protein Albumin Urine WBC (Auto) Urine Creatinine Ur Total Protein 24 Hr Urine Total Protein Crossmatch 09/22/17 09/22/17 09/22/17 12:52 14:24 16:09 WBC Hgb Hct MCH 27 L RDW 18.4 H Lymph % (Auto) 6.9 L [place] % (Auto) Lymph # 0.7 L [place] # Seg Neutrophils % 88.9 H Seg Neutrophils # 9.4 H Carbon Dioxide 18 L Glucose 255 H POC Glucose 255 H Calcium 8.3 L Lactate Dehydrogenase Total Protein 6.1 L Albumin 2.9 L Urine WBC (Auto) Urine Creatinine Ur Total Protein 24 Hr Urine Total Protein Crossmatch 09/22/17 09/22/17 09/22/17 18:37 21:29 22:48 WBC Hgb Hct MCH RDW Lymph % (Auto) [place] % (Auto) Lymph # [place] # Seg Neutrophils % Seg Neutrophils # Carbon Dioxide Glucose POC Glucose 262 H 231 H 181 H Calcium Lactate Dehydrogenase Total Protein Albumin Urine WBC (Auto) Urine Creatinine Ur Total Protein 24 Hr Urine Total Protein Crossmatch 09/23/17 09/23/17 09/23/17 07:54 10:25 15:03 WBC Hgb Hct MCH RDW Lymph % (Auto) [place] % (Auto) Lymph # [place] # Seg Neutrophils % Seg Neutrophils # Carbon Dioxide Glucose POC Glucose 134 H 191 H 240 H Calcium Lactate Dehydrogenase Total Protein Albumin Urine WBC (Auto) Urine Creatinine Ur Total Protein 24 Hr Urine Total Protein Crossmatch 09/23/17 09/24/17 09/24/17 21:18 05:19 09:23 WBC 15.0 H Hgb 9.8 L Hct 30.1 L MCH 26 L RDW 18.4 H Lymph % (Auto) 11.1 L [place] % (Auto) 7.9 H Lymph # [place] # 1.2 H Seg Neutrophils % 80.7 H Seg Neutrophils # 12.1 H Carbon Dioxide Glucose POC Glucose 169 H 143 H Calcium Lactate Dehydrogenase Total Protein Albumin Urine WBC (Auto) Urine Creatinine Ur Total Protein 24 Hr Urine Total Protein Crossmatch 09/24/17 09/24/17 09/25/17 11:40 18:57 06:39 WBC Hgb Hct MCH RDW Lymph % (Auto) [place] % (Auto) Lymph # [place] # Seg Neutrophils % Seg Neutrophils # Carbon Dioxide Glucose POC Glucose 155 H 144 H 67 L Calcium Lactate Dehydrogenase Total Protein Albumin Urine WBC (Auto) Urine Creatinine Ur Total Protein 24 Hr Urine Total Protein Crossmatch 09/25/17 09/25/17 09/26/17 11:08 15:45 06:16 WBC Hgb Hct MCH RDW Lymph % (Auto) [place] % (Auto) Lymph # [place] # Seg Neutrophils % Seg Neutrophils # Carbon Dioxide Glucose POC Glucose 182 H 146 H 64 L Calcium Lactate Dehydrogenase Total Protein Albumin Urine WBC (Auto) Urine Creatinine Ur Total Protein 24 Hr Urine Total Protein Crossmatch 09/26/17 09/26/17 09/27/17 11:34 15:15 07:55 WBC 12.5 H Hgb 9.8 L Hct MCH 26 L RDW 18.6 H Lymph % (Auto) [place] % (Auto) Lymph # [place] # Seg Neutrophils % Seg Neutrophils # Carbon Dioxide Glucose POC Glucose 156 H 135 H Calcium Lactate Dehydrogenase Total Protein Albumin Urine WBC (Auto) Urine Creatinine Ur Total Protein 24 Hr Urine Total Protein Crossmatch 09/27/17 09/27/17 09/27/17 10:33 14:30 19:16 WBC Hgb Hct MCH RDW Lymph % (Auto) [place] % (Auto) Lymph # [place] # Seg Neutrophils % Seg Neutrophils # Carbon Dioxide Glucose POC Glucose 173 H 130 H 150 H Calcium Lactate Dehydrogenase Total Protein Albumin Urine WBC (Auto) Urine Creatinine Ur Total Protein 24 Hr Urine Total Protein Crossmatch 09/28/17 09/28/17 09/28/17 00:03 14:12 18:55 WBC Hgb Hct MCH RDW Lymph % (Auto) [place] % (Auto) Lymph # [place] # Seg Neutrophils % Seg Neutrophils # Carbon Dioxide Glucose POC Glucose 130 H 125 H 144 H Calcium Lactate Dehydrogenase Total Protein Albumin Urine WBC (Auto) Urine Creatinine Ur Total Protein 24 Hr Urine Total Protein Crossmatch Laboratory Results - last 24 hr 09/28/17 09/28/17 09/28/17 11:31 12:00 14:12 POC Glucose 100 88 125 H 09/28/17 09/29/17 18:55 07:59 POC Glucose 144 H 70 - Results US- obstetric: other (09/27 BPP 01/16)
--- NOTE | 2017-09-29 12:46 | Progress Note ---
Assessment and Plan - Patient Problems (1) Vaginal bleeding during , antepartum Current Visit: Yes Status: Acute Plan to address problem: clinically stable will consider discharge home tomorrow (2) Chronic hypertension Current Visit: No Status: Acute (3) Diabetes in Current Visit: No Status: Acute Subjective - Subjective Date of service: 09/29/17 Principal diagnosis: vaginal bleeding in third trimester, aburption, Pree Interval history: 37y/o @ 28+6 weeks with chronic hypertension and IDDM. The patient has been cleared by MFM to be discharged. She denies any vaginal bleeding. She is reluctant to go home today. We discussed she must remain compliant with her meds and bedrest. The patient's insulin was increased to accomodate discontinuing her metformin. Patient reports: no new complaints, no loss of fluid (decreased to spotting ), no vaginal bleeding Objective - Vital Signs Vital Signs: Vital Signs - 12hr 09/29/17 09/29/17 06:40 07:50 Temperature 97.6 F 97.5 F L Pulse Rate 93 H Respiratory 18 16 Rate Blood Pressure 137/86 [Left] - Labs Labs: Abnormal Labs 09/21/17 09/21/17 09/21/17 16:52 17:00 17:08 WBC Hgb Hct MCH RDW Lymph % (Auto) [place] % (Auto) Lymph # [place] # Seg Neutrophils % Seg Neutrophils # Carbon Dioxide Glucose POC Glucose 47 L Calcium Lactate Dehydrogenase Total Protein Albumin Urine WBC (Auto) 10.0 H Urine Creatinine Ur Total Protein 24 Hr Urine Total Protein Crossmatch See Detail 09/21/17 09/21/17 09/22/17 17:10 17:10 00:00 WBC Hgb Hct MCH 26 L RDW 18.6 H Lymph % (Auto) [place] % (Auto) Lymph # [place] # Seg Neutrophils % Seg Neutrophils # Carbon Dioxide Glucose POC Glucose Calcium Lactate Dehydrogenase 223 H Total Protein Albumin Urine WBC (Auto) Urine Creatinine 93.1 H Ur Total Protein 24 Hr 1386.00 H Urine Total Protein 77 H Crossmatch 09/22/17 09/22/17 09/22/17 09:24 09:54 12:52 WBC Hgb 10.0 L Hct MCH 26 L 26 L RDW 18.3 H 18.7 H Lymph % (Auto) 11.6 L [place] % (Auto) Lymph # [place] # Seg Neutrophils % 83.3 H Seg Neutrophils # 9.0 H Carbon Dioxide Glucose POC Glucose 117 H Calcium Lactate Dehydrogenase Total Protein Albumin Urine WBC (Auto) Urine Creatinine Ur Total Protein 24 Hr Urine Total Protein Crossmatch 09/22/17 09/22/17 09/22/17 12:52 14:24 16:09 WBC Hgb Hct MCH 27 L RDW 18.4 H Lymph % (Auto) 6.9 L [place] % (Auto) Lymph # 0.7 L [place] # Seg Neutrophils % 88.9 H Seg Neutrophils # 9.4 H Carbon Dioxide 18 L Glucose 255 H POC Glucose 255 H Calcium 8.3 L Lactate Dehydrogenase Total Protein 6.1 L Albumin 2.9 L Urine WBC (Auto) Urine Creatinine Ur Total Protein 24 Hr Urine Total Protein Crossmatch 09/22/17 09/22/17 09/22/17 18:37 21:29 22:48 WBC Hgb Hct MCH RDW Lymph % (Auto) [place] % (Auto) Lymph # [place] # Seg Neutrophils % Seg Neutrophils # Carbon Dioxide Glucose POC Glucose 262 H 231 H 181 H Calcium Lactate Dehydrogenase Total Protein Albumin Urine WBC (Auto) Urine Creatinine Ur Total Protein 24 Hr Urine Total Protein Crossmatch 09/23/17 09/23/17 09/23/17 07:54 10:25 15:03 WBC Hgb Hct MCH RDW Lymph % (Auto) [place] % (Auto) Lymph # [place] # Seg Neutrophils % Seg Neutrophils # Carbon Dioxide Glucose POC Glucose 134 H 191 H 240 H Calcium Lactate Dehydrogenase Total Protein Albumin Urine WBC (Auto) Urine Creatinine Ur Total Protein 24 Hr Urine Total Protein Crossmatch 09/23/17 09/24/17 09/24/17 21:18 05:19 09:23 WBC 15.0 H Hgb 9.8 L Hct 30.1 L MCH 26 L RDW 18.4 H Lymph % (Auto) 11.1 L [place] % (Auto) 7.9 H Lymph # [place] # 1.2 H Seg Neutrophils % 80.7 H Seg Neutrophils # 12.1 H Carbon Dioxide Glucose POC Glucose 169 H 143 H Calcium Lactate Dehydrogenase Total Protein Albumin Urine WBC (Auto) Urine Creatinine Ur Total Protein 24 Hr Urine Total Protein Crossmatch 09/24/17 09/24/17 09/25/17 11:40 18:57 06:39 WBC Hgb Hct MCH RDW Lymph % (Auto) [place] % (Auto) Lymph # [place] # Seg Neutrophils % Seg Neutrophils # Carbon Dioxide Glucose POC Glucose 155 H 144 H 67 L Calcium Lactate Dehydrogenase Total Protein Albumin Urine WBC (Auto) Urine Creatinine Ur Total Protein 24 Hr Urine Total Protein Crossmatch 09/25/17 09/25/17 09/26/17 11:08 15:45 06:16 WBC Hgb Hct MCH RDW Lymph % (Auto) [place] % (Auto) Lymph # [place] # Seg Neutrophils % Seg Neutrophils # Carbon Dioxide Glucose POC Glucose 182 H 146 H 64 L Calcium Lactate Dehydrogenase Total Protein Albumin Urine WBC (Auto) Urine Creatinine Ur Total Protein 24 Hr Urine Total Protein Crossmatch 09/26/17 09/26/17 09/27/17 11:34 15:15 07:55 WBC 12.5 H Hgb 9.8 L Hct MCH 26 L RDW 18.6 H Lymph % (Auto) [place] % (Auto) Lymph # [place] # Seg Neutrophils % Seg Neutrophils # Carbon Dioxide Glucose POC Glucose 156 H 135 H Calcium Lactate Dehydrogenase Total Protein Albumin Urine WBC (Auto) Urine Creatinine Ur Total Protein 24 Hr Urine Total Protein Crossmatch 09/27/17 09/27/17 09/27/17 10:33 14:30 19:16 WBC Hgb Hct MCH RDW Lymph % (Auto) [place] % (Auto) Lymph # [place] # Seg Neutrophils % Seg Neutrophils # Carbon Dioxide Glucose POC Glucose 173 H 130 H 150 H Calcium Lactate Dehydrogenase Total Protein Albumin Urine WBC (Auto) Urine Creatinine Ur Total Protein 24 Hr Urine Total Protein Crossmatch 09/28/17 09/28/17 09/28/17 00:03 14:12 18:55 WBC Hgb Hct MCH RDW Lymph % (Auto) [place] % (Auto) Lymph # [place] # Seg Neutrophils % Seg Neutrophils # Carbon Dioxide Glucose POC Glucose 130 H 125 H 144 H Calcium Lactate Dehydrogenase Total Protein Albumin Urine WBC (Auto) Urine Creatinine Ur Total Protein 24 Hr Urine Total Protein Crossmatch Laboratory Results - last 24 hr 09/28/17 09/28/17 09/29/17 14:12 18:55 07:59 POC Glucose 125 H 144 H 70
[2017-09-29] MEDS ORDERED: HumuLIN R SUB-Q SCH (17:00)
[2017-09-30] MEDS: AMBIEN PO PRN (01:35)
[2017-09-30] MEDS: PROCARDIA XL PO SCH (01:40)
[2017-09-30] MEDS ORDERED: HumuLIN R SUB-Q SCH (08:00)
[2017-09-30] MEDS: NORMODYNE PO SCH ×2 (08:23→15:35)
[2017-09-30] MEDS: WELLBUTRIN XL PO SCH (09:59)
[2017-09-30] MEDS: PRENATAL VITAMIN PO SCH (09:59)
[2017-09-30] MEDS: GLUCOPHAGE PO SCH (12:13)
[2017-09-30 12:16] VITALS: BP 143/77
--- NOTE | 2017-09-30 13:27 | Progress Note ---
Assessment and Plan - Patient Problems (1) Vaginal bleeding during , antepartum Current Visit: Yes Status: Acute Plan to address problem: clinically stable close outpatient followup (2) Chronic hypertension Current Visit: No Status: Acute (3) Diabetes in Current Visit: No Status: Acute Subjective - Subjective Date of service: 09/30/17 Principal diagnosis: vaginal bleeding in third trimester, aburption, Pree Interval history: 37y/o @ 29+0 weeks with chronic hypertension and IDDM. No significant issues today. The patient has decided to be managed as an outpatient. Patient reports: no new complaints, no loss of fluid (decreased to spotting ), no vaginal bleeding Objective - Vital Signs Vital Signs: Vital Signs - 12hr 09/30/17 09/30/17 09/30/17 08:08 08:23 12:15 Temperature 99.1 F 98.6 F Pulse Rate 98 H 98 H 97 H Respiratory 18 18 Rate Blood Pressure 131/76 Blood Pressure 131/76 143/77 [Left] - Labs Labs: Abnormal Labs 09/21/17 09/21/17 09/21/17 16:52 17:00 17:08 WBC Hgb Hct MCH RDW Lymph % (Auto) [place] % (Auto) Lymph # [place] # Seg Neutrophils % Seg Neutrophils # Carbon Dioxide Glucose POC Glucose 47 L Calcium Lactate Dehydrogenase Total Protein Albumin Urine WBC (Auto) 10.0 H Urine Creatinine Ur Total Protein 24 Hr Urine Total Protein Crossmatch See Detail 09/21/17 09/21/17 09/22/17 17:10 17:10 00:00 WBC Hgb Hct MCH 26 L RDW 18.6 H Lymph % (Auto) [place] % (Auto) Lymph # [place] # Seg Neutrophils % Seg Neutrophils # Carbon Dioxide Glucose POC Glucose Calcium Lactate Dehydrogenase 223 H Total Protein Albumin Urine WBC (Auto) Urine Creatinine 93.1 H Ur Total Protein 24 Hr 1386.00 H Urine Total Protein 77 H Crossmatch 09/22/17 09/22/17 09/22/17 09:24 09:54 12:52 WBC Hgb 10.0 L Hct MCH 26 L 26 L RDW 18.3 H 18.7 H Lymph % (Auto) 11.6 L [place] % (Auto) Lymph # [place] # Seg Neutrophils % 83.3 H Seg Neutrophils # 9.0 H Carbon Dioxide Glucose POC Glucose 117 H Calcium Lactate Dehydrogenase Total Protein Albumin Urine WBC (Auto) Urine Creatinine Ur Total Protein 24 Hr Urine Total Protein Crossmatch 09/22/17 09/22/17 09/22/17 12:52 14:24 16:09 WBC Hgb Hct MCH 27 L RDW 18.4 H Lymph % (Auto) 6.9 L [place] % (Auto) Lymph # 0.7 L [place] # Seg Neutrophils % 88.9 H Seg Neutrophils # 9.4 H Carbon Dioxide 18 L Glucose 255 H POC Glucose 255 H Calcium 8.3 L Lactate Dehydrogenase Total Protein 6.1 L Albumin 2.9 L Urine WBC (Auto) Urine Creatinine Ur Total Protein 24 Hr Urine Total Protein Crossmatch 09/22/17 09/22/17 09/22/17 18:37 21:29 22:48 WBC Hgb Hct MCH RDW Lymph % (Auto) [place] % (Auto) Lymph # [place] # Seg Neutrophils % Seg Neutrophils # Carbon Dioxide Glucose POC Glucose 262 H 231 H 181 H Calcium Lactate Dehydrogenase Total Protein Albumin Urine WBC (Auto) Urine Creatinine Ur Total Protein 24 Hr Urine Total Protein Crossmatch 09/23/17 09/23/17 09/23/17 07:54 10:25 15:03 WBC Hgb Hct MCH RDW Lymph % (Auto) [place] % (Auto) Lymph # [place] # Seg Neutrophils % Seg Neutrophils # Carbon Dioxide Glucose POC Glucose 134 H 191 H 240 H Calcium Lactate Dehydrogenase Total Protein Albumin Urine WBC (Auto) Urine Creatinine Ur Total Protein 24 Hr Urine Total Protein Crossmatch 09/23/17 09/24/17 09/24/17 21:18 05:19 09:23 WBC 15.0 H Hgb 9.8 L Hct 30.1 L MCH 26 L RDW 18.4 H Lymph % (Auto) 11.1 L [place] % (Auto) 7.9 H Lymph # [place] # 1.2 H Seg Neutrophils % 80.7 H Seg Neutrophils # 12.1 H Carbon Dioxide Glucose POC Glucose 169 H 143 H Calcium Lactate Dehydrogenase Total Protein Albumin Urine WBC (Auto) Urine Creatinine Ur Total Protein 24 Hr Urine Total Protein Crossmatch 09/24/17 09/24/17 09/25/17 11:40 18:57 06:39 WBC Hgb Hct MCH RDW Lymph % (Auto) [place] % (Auto) Lymph # [place] # Seg Neutrophils % Seg Neutrophils # Carbon Dioxide Glucose POC Glucose 155 H 144 H 67 L Calcium Lactate Dehydrogenase Total Protein Albumin Urine WBC (Auto) Urine Creatinine Ur Total Protein 24 Hr Urine Total Protein Crossmatch 09/25/17 09/25/17 09/26/17 11:08 15:45 06:16 WBC Hgb Hct MCH RDW Lymph % (Auto) [place] % (Auto) Lymph # [place] # Seg Neutrophils % Seg Neutrophils # Carbon Dioxide Glucose POC Glucose 182 H 146 H 64 L Calcium Lactate Dehydrogenase Total Protein Albumin Urine WBC (Auto) Urine Creatinine Ur Total Protein 24 Hr Urine Total Protein Crossmatch 09/26/17 09/26/17 09/27/17 11:34 15:15 07:55 WBC 12.5 H Hgb 9.8 L Hct MCH 26 L RDW 18.6 H Lymph % (Auto) [place] % (Auto) Lymph # [place] # Seg Neutrophils % Seg Neutrophils # Carbon Dioxide Glucose POC Glucose 156 H 135 H Calcium Lactate Dehydrogenase Total Protein Albumin Urine WBC (Auto) Urine Creatinine Ur Total Protein 24 Hr Urine Total Protein Crossmatch 09/27/17 09/27/17 09/27/17 10:33 14:30 19:16 WBC Hgb Hct MCH RDW Lymph % (Auto) [place] % (Auto) Lymph # [place] # Seg Neutrophils % Seg Neutrophils # Carbon Dioxide Glucose POC Glucose 173 H 130 H 150 H Calcium Lactate Dehydrogenase Total Protein Albumin Urine WBC (Auto) Urine Creatinine Ur Total Protein 24 Hr Urine Total Protein Crossmatch 09/28/17 09/28/17 09/28/17 00:03 14:12 18:55 WBC Hgb Hct MCH RDW Lymph % (Auto) [place] % (Auto) Lymph # [place] # Seg Neutrophils % Seg Neutrophils # Carbon Dioxide Glucose POC Glucose 130 H 125 H 144 H Calcium Lactate Dehydrogenase Total Protein Albumin Urine WBC (Auto) Urine Creatinine Ur Total Protein 24 Hr Urine Total Protein Crossmatch 09/29/17 09/30/17 09/30/17 17:06 08:16 10:44 WBC Hgb Hct MCH RDW Lymph % (Auto) [place] % (Auto) Lymph # [place] # Seg Neutrophils % Seg Neutrophils # Carbon Dioxide Glucose POC Glucose 151 H 63 L 132 H Calcium Lactate Dehydrogenase Total Protein Albumin Urine WBC (Auto) Urine Creatinine Ur Total Protein 24 Hr Urine Total Protein Crossmatch Laboratory Results - last 24 hr 09/29/17 09/30/17 09/30/17 17:06 08:16 10:44 POC Glucose 151 H 63 L 132 H
--- NOTE | 2017-09-30 13:30 | Discharge Summary ---
Providers - Providers Date of Admission: 09/25/17 13:40 Date of discharge: 09/30/17 Attending physician: GRANT FERNANDO MD 09/21/17 20:00 Consult to Dietitian/Nutrition [CONS] Routine Physician Instructions: Reason For Exam: diabetes in Reason for Consult: Diet education 09/21/17 20:14 Consult to Physician [CONS] Routine Comment: Consulting Provider: LIBORIO SOLANO Physician Instructions: Reason For Exam: IUP 27 weeks, chtn, type 2 dm, vaginal bleeding Primary care physician: GRANT FERNANDO MD Hospitalization Reason for admission: vaginal bleeding, other (chronic hypertension and IDDM) Discharge diagnosis: other (Chronic hypertension and IDDM) Hospital course: The patient was admitted for vaginal bleeding and suspected subclinical abruption. Her chronic hypertension and IDDM was closely managed. She remained clinically stable. Will manage as outpatient per [facility]. Condition at discharge: Good Disposition: DC-01 TO HOME OR SELFCARE - Discharge Diagnoses (1) Vaginal bleeding during , antepartum Status: Acute (2) Chronic hypertension Status: Acute (3) Diabetes in Status: Acute Plan - Discharge Medications Prescriptions: NIFEdipine XL [Procardia Xl] 90 mg PO QDAY #30 tablet - Provider Discharge Summary Activity: no sex for 6 weeks, no strenuous exercise Diet: routine Instructions: routine Additional instructions: [] Smoking cessation referral if applicable(refer to patient education folder for contact #) [] Refer to [facility] Booklet Call your doctor immediately for: * Fever > 100.5 * Heavy vaginal bleeding ( >1 pad per hour) * Severe persistent headache * Shortness of breath * Reddened, hot, painful area to leg or breast * schedule followup in one week - Follow up plan
== END 2017-09-30 15:55 | disposition home or self-care (01) | DRG 781 ==
LOC: TRG 16:28 → LD 20:08 → OBSVTOIN 09-25 13:40 → LD 09-27 15:01
PROVIDERS: ADMIT Obstetrics & Gynecology; ATTEND Obstetrics & Gynecology
DX: O45.92 Premature separation of placenta, unspecified, second trimester (principal); O24.112 Pre-existing type 2 diabetes mellitus, in pregnancy, second trimester; O11.2 Pre-existing hypertension with pre-eclampsia, second trimester; O99.342 Other mental disorders complicating pregnancy, second trimester; F32.9 Major depressive disorder, single episode, unspecified; E11.9 Type 2 diabetes mellitus without complications; Z3A.27 27 weeks gestation of pregnancy; Z79.84 Long term (current) use of oral hypoglycemic drugs; Z82.49 Family history of ischemic heart disease and other diseases of the circulatory system; Z83.3 Family history of diabetes mellitus; Z81.8 Family history of other mental and behavioral disorders
CPT/HCPCS: 36415; 76805; 76815; 76819; 80053; 80307; 81001; 82565; 82570; 82962; 83615; 84156; 84450; 84460; 84550; 85025; 85027; 85610; 85730; 86850; 86900; 86901; 86920; 87086; G0378; J0360; J0696; J0702; J1815; J2405; J3010; J7030; J7120

== ENCOUNTER 2017-10-06 11:48 | Observation (INO) | payer OTHER, MEDICAID ==
[2017-10-06] MEDS ORDERED: LACTATED RINGERS 500 ML IV ONE (12:08)
[2017-10-06 13:00] LABS: Hematocrit 32.4 % (30.3-42.9); Hemoglobin 10.5 gm/dl (10.1-14.3); Mean Corpuscular HGB Conc 33 % (30-34); Mean Corpuscular Hemoglobin 27 pg (28-32); Mean Corpuscular Volume 82 fl (79-97); Platelet Count 369 K/mm3 (140-440); Red Blood Count 3.94 M/mm3 (3.65-5.03); Red Cell Distribution Width 18.7 % (13.2-15.2)
[2017-10-06 13:27] LABS: Bacteria,Urine 2+ /HPF (Negative); Bilirubin,Urine NEG (Negative); Blood,Urine LG (Negative); Color,Urine Yellow (Yellow); Mucus,Urine 2+ /HPF; Urobilinogen,Urine < 2.0 mg/dL (<2.0)
[2017-10-06 13:34] LABS: Alanine Aminotransferase 30 units/L (7-56)
[2017-10-06] MEDS ORDERED: NORMODYNE PO SCH (14:00)
[2017-10-06] MEDS ORDERED: LACTATED RINGERS 1,000 ML ONE ×2 (16:38→18:12)
[2017-10-06] MEDS ORDERED: HumuLIN R SUB-Q SCH ×2 (18:00→22:00)
[2017-10-06] MEDS: NORMODYNE PO SCH (19:54)
[2017-10-06] MEDS: PROCARDIA XL PO SCH (22:14)
[2017-10-07] MEDS ORDERED: LACTATED RINGERS 1,000 ML ONE (02:05)
[2017-10-07] MEDS ORDERED: HumuLIN R SUB-Q SCH (08:00)
[2017-10-07 08:12] VITALS: BP 144/81
[2017-10-07] MEDS: NORMODYNE PO SCH (08:19)
[2017-10-07] MEDS ORDERED: WELLBUTRIN PO SCH (10:00)
[2017-10-07] MEDS ORDERED: PRENATAL VITAMIN PO SCH (10:00)
[2017-10-07] MEDS: PROCARDIA XL PO SCH (10:45)
[2017-10-07] MEDS ORDERED: PNEUMOVAX 23 IM ONE (12:00)
--- NOTE | 2017-10-07 14:11 | History and Physical Report ---
History of Present Illness Date of examination: 10/07/17 Date of admission: 10/06/17 15:58 Chief complaint: I'm bleeding History of present illness: Patient is a 37 year old at 28 + weeks who presented to L&D with complaint of bleeding this morning. Patient stated that she woke up in a pool of blood, however upon presentation to the hospital there was no blood present. She has a history of hypertension and poorly controlled diabetes and on admission, her blood pressure was elevated (160-170/90-100) and remained so despite treatment with her "normal dose" of Labetalol which she did not take prior to presentation to the hospital. Past History Past Medical History: hypertension, diabetes Family/Genetic History: none Social history: single - Obstetrical History Expected Date of Delivery: 12/26/17 Actual Gestation: 28 Week(s) 4 Day(s) : 4 Medications and Allergies Allergies Allergy/AdvReac Type Severity Reaction Status Date / Time No Known Allergies Allergy Verified 05/13/14 23:02 Home Medications Medication Instructions Recorded Confirmed Last Taken Type Insulin NPH Human Isophane 86 units SQ BID 09/21/17 10/06/17 10/05/17 22:00 History [Novolin N] 86 Labetalol [Normodyne] 200 mg PO TID 09/21/17 10/06/17 10/06/17 13:40 History Vit No.130/Iron/Folic 1 tab PO DAILY 09/21/17 10/06/17 10/05/17 12:00 History [ Tablet] buPROPion [Wellbutrin] 100 mg PO DAILY 09/21/17 10/06/17 10/05/17 12:00 History NIFEdipine XL [Procardia Xl] 90 mg PO QDAY #30 tablet 09/30/17 10/06/17 22:00 Rx 1 Active Meds: Active Medications Bupropion HCl (Wellbutrin) [address] [facility] Last Admin: 10/07/17 10:44 Dose: 150 mg Insulin Human NPH (Humulin N) 87 unit SUB-Q QDDIAB [facility] Last Admin: 10/07/17 08:34 Dose: 87 unit Insulin Human NPH (Humulin N) 87 unit SUB-Q QHS [facility] Last Admin: 10/06/17 22:15 Dose: 87 unit Insulin Human Regular (Humulin R) 76 units SUB-Q QDDIAB [facility] Last Admin: 10/07/17 08:14 Dose: 76 units Insulin Human Regular (Humulin R) 76 units SUB-Q QPMDIAB [facility] Insulin Human Regular (Humulin R) 76 units SUB-Q QHS [facility] Last Admin: 10/06/17 22:19 Dose: 76 units Labetalol HCl (Normodyne) [address] [facility] Last Admin: 10/07/17 08:19 Dose: 200 mg Multivitamins/Iron/Calcium ( Vitamin) [address] [facility] Last Admin: 10/07/17 10:38 Dose: 1 each Nifedipine (Procardia Xl) [address] [facility] Last Admin: 10/07/17 10:45 Dose: 90 mg Review of Systems All systems: negative Genitourinary: vaginal bleeding - Vital Signs Vital signs: Vital Signs Temp Pulse Resp BP Pulse Ox 98.4 F 95 H 24 159/92 100 10/06/17 12:09 10/06/17 12:09 10/06/17 12:09 10/06/17 12:09 10/06/17 12:09 Temp Pulse Resp BP Pulse Ox 96 F L 100 H 18 144/81 100 10/07/17 08:10 10/07/17 08:19 10/07/17 08:10 10/07/17 08:19 10/06/17 12:09 - Physical Exam Breasts: Cardiovascular: Regular rate, Normal S1, Normal S2 Abdomen: Positive: normal appearance, soft, normal bowel sounds. Negative: distention, tenderness Vulva: both: normal Vagina: Positive: normal moisture. Negative: discharge Cervix: Negative: lesion, discharge Uterus: Positive: normal size, normal contour Adnexa: both: normal Anus/Rectum: Positive: normal perianal skin, heme negative. Negative: rectal mass, hemorrhoids Extremities: Deep Tendon Reflex Grade: Normal +2 Results Result Diagrams: 10/06/17 12:38 10/06/17 12:38 Abnormal lab results 10/06/17 10/07/17 Range/Units 19:55 05:39 POC Glucose 197 H 109 H (70-105) All other labs normal. Assessment and Plan IUP at 28.5 weeks with poorly controlled hypertension. Patient was unable to be discharged with current hypertension so will admit for inpatient monitoring.
--- NOTE | 2017-10-07 14:45 | Discharge Summary ---
Providers - Providers Date of Admission: 10/06/17 15:58 Date of discharge: 10/07/17 Attending physician: GRANT FERNANDO MD Primary care physician: GRANT FERNANDO MD Hospitalization Reason for admission: other (hypert) Discharge diagnosis: other (hypertension) Condition at discharge: Good Disposition: DC-01 TO HOME OR SELFCARE Plan - Provider Discharge Summary Activity: routine Diet: routine Instructions: routine Additional instructions: [] Smoking cessation referral if applicable(refer to patient education folder for contact #) [] Refer to [facility] Booklet Call your doctor immediately for: * Fever > 100.5 * Heavy vaginal bleeding ( >1 pad per hour) * Severe persistent headache * Shortness of breath * Reddened, hot, painful area to leg or breast * Drainage or odor from incision. * Keep incision clean and dry at all times and follow doctor's instructions regarding bathing/showering - Follow up plan Follow up: GRANT FERNANDO MD [Primary Care Provider] - 7 Days
== END 2017-10-07 15:44 | disposition home or self-care (01) ==
LOC: TRG 11:48 → LD 15:58
PROVIDERS: ADMIT Obstetrics & Gynecology; ATTEND Obstetrics & Gynecology
DX: O10.013 Pre-existing essential hypertension complicating pregnancy, third trimester (principal); O24.113 Pre-existing type 2 diabetes mellitus, in pregnancy, third trimester; E11.9 Type 2 diabetes mellitus without complications; Z3A.28 28 weeks gestation of pregnancy
CPT/HCPCS: 36415; 81001; 82565; 82962; 83615; 84450; 84460; 84550; 85027; 96372; G0378; J7120; 90732; J1815

== ENCOUNTER 2017-10-30 15:26 | Inpatient (IN) | payer OTHER, MEDICAID ==
[2017-10-30] MEDS ORDERED: LACTATED RINGERS 1,000 ML IV SCH ×3 (16:00→23:41)
[2017-10-30 16:30] LABS: Hematocrit 30.4 % (30.3-42.9); Hemoglobin 10.3 gm/dl (10.1-14.3); Mean Corpuscular HGB Conc 34 % (30-34); Mean Corpuscular Hemoglobin 27 pg (28-32); Mean Corpuscular Volume 81 fl (79-97); Platelet Count 299 K/mm3 (140-440); Red Blood Count 3.77 M/mm3 (3.65-5.03); Red Cell Distribution Width 17.5 % (13.2-15.2)
[2017-10-30 16:47] LABS: Bilirubin,Urine NEG (Negative); Blood,Urine SM (Negative); Color,Urine Yellow (Yellow); Mucus,Urine FEW /HPF; Protein,Urine >500 mg/dL (Negative); Urobilinogen,Urine < 2.0 mg/dL (<2.0)
[2017-10-30 16:48] LABS: Alanine Aminotransferase 27 units/L (7-56); Uric Acid 6.3 mg/dL (3.5-7.6)
[2017-10-30] MEDS ORDERED: APRESOLINE IV ONE (17:18)
[2017-10-30] MEDS ORDERED: MAGNESIUM SULFATE 4GM/100ML 4 GM/100 ML BAG IV ONE ×2 (17:21→17:35)
[2017-10-30] MEDS ORDERED: ASTRAMORPH PF 10MG/10ML ONE (17:38)
[2017-10-30] MEDS ORDERED: NORMODYNE IV ONE (17:38)
[2017-10-30] MEDS ORDERED: REGLAN IV ONE (17:39)
[2017-10-30] MEDS ORDERED: BICITRA PO ONE (17:39)
[2017-10-30] MEDS ORDERED: PEPCID IV ONE (17:39)
[2017-10-30] MEDS ORDERED: CELESTONE SOLUSPAN IM ONE (17:45)
[2017-10-30] MEDS ORDERED: PITOCin/NS 20 UNIT/1000ML DRIP 20 UNITS/1,000 ML BAG IV SCH ×2 (18:00→23:41)
[2017-10-30] MEDS ORDERED: ANCEF/STERILE WATER 2 GM/20 ML 2 GM/20 ML SYRINGE IV NR (18:00)
[2017-10-30] MEDS ORDERED: LACTATED RINGERS 1,000 ML ONE (18:19)
--- NOTE | 2017-10-30 18:28 | History and Physical Report ---
History of Present Illness Date of examination: 10/30/17 Date of admission: 10/30/17 17:28 Chief complaint: sent with elevated blood pressures History of present illness: Pt is a 37 year old -[place] female DOMINGO 12/23/17 at 32w2d with a h/o previously diagnosed chronic hypertension with superimposed preeclampsia stable on PO medication , pregestational diabetes, obesity, chronic placental abruption, and previous section presents from [facility] office with systolic blood pressures 160-190. Upon arrival to the unit, the patient's blood pressures were 200s/100s. The patient reports headache, but denies blurry vision or RUQ pain. She has had care at [facility] since 7 wks complicated by the aforementioned issues as well as genital herpes and Welbutrin exposure. She is GBS unknown. Past History Past Medical History: hypertension, diabetes Past Surgical History: section [employer] History: herpes Family/Genetic History: heart disease, hypertension Social history: no significant social history - Obstetrical History Expected Date of Delivery: 12/23/17 Actual Gestation: 32 Week(s) 6 Day(s) : 4 Para: 3 Hx # Term Pregnancies: 2 Number of Pregnancies: 1 Spontaneous Abortions: 0 Induced : 0 Number of Living Children: 3 Medications and Allergies Allergies Allergy/AdvReac Type Severity Reaction Status Date / Time No Known Allergies Allergy Verified 05/13/14 23:02 Home Medications Medication Instructions Recorded Confirmed Last Taken Type Insulin NPH Human Isophane 86 units SQ BID 09/21/17 10/30/17 10/05/17 22:00 History [Novolin N] 86 Labetalol [Normodyne] 200 mg PO TID 09/21/17 10/30/17 10/06/17 13:40 History Vit No.130/Iron/Folic 1 tab PO DAILY 09/21/17 10/30/17 10/05/17 12:00 History [ Tablet] buPROPion [Wellbutrin] 100 mg PO DAILY 09/21/17 10/30/17 10/05/17 12:00 History NIFEdipine XL [Procardia Xl] 90 mg PO QDAY #30 tablet 09/30/17 10/30/17 22:00 Rx 1 Clindamycin [Clindamycin CAP] 300 mg PO Q6H #28 capsule 11/03/17 Unknown Rx Fluconazole [Diflucan] 150 mg PO Q72H #3 tablet 11/03/17 Unknown Rx Ibuprofen [Motrin] 800 mg PO Q8HR PRN #30 tablet 11/03/17 Unknown Rx Labetalol [Normodyne TAB] 400 mg PO BID #120 tablet 11/03/17 Unknown Rx NIFEdipine XL [Procardia Xl] 90 mg PO QDAY #30 tablet 11/03/17 Unknown Rx Sitagliptin Phos/Metformin HCl 1 tab PO BID #60 tablet 11/03/17 Unknown Rx [Janumet 50-1,000 mg] buPROPion [Wellbutrin] 100 mg PO BID #60 tab 11/03/17 Unknown Rx oxyCODONE /ACETAMINOPHEN [Percocet 1 tab PO Q6HR PRN #40 tablet 11/03/17 Unknown Rx 5/325] Active Meds: Active Medications Lactated Ringer's (Lactated Ringers) 1,000 mls @ 125 mls/hr IV DIRECT FREDY Cefazolin Sodium (Ancef/Sterile Water 2 Gm/20 Ml) 2 gm in 20 mls @ 80 mls/hr IV PREOP NR; Protocol Stop: 10/30/17 23:59 Lactated Ringer's (Lactated Ringers) 1,000 mls @ 2,250 mls/hr IV PREOP FREDY Stop: 10/31/17 18:27 Oxytocin/Sodium Chloride (Pitocin/Ns 20 Unit/1000ml Drip) 20 units in 1,000 mls @ 0 mls/hr IV TITR FREDY Review of Systems All systems: negative - Vital Signs Vital signs: Vital Signs Pulse Pulse Ox 99 H 100 10/30/17 15:51 10/30/17 15:51 Temp Pulse Resp BP Pulse Ox 99.1 F 100 H 18 167/87 83 L 10/30/17 16:14 10/30/17 18:07 10/30/17 16:14 10/30/17 18:07 10/30/17 17:35 - Physical Exam Breasts: Positive: deferred Cardiovascular: Regular rate Lungs: Positive: Clear to auscultation Abdomen: Positive: soft (obese, gravid ) Uterus: Positive: enlarged (gravid ) Extremities: Positive: normal - Obstetrical FHR: category 2 Uterine Contraction Monitor Mode: External Uterine Contraction Pattern: Irregular Uterine Tone Measurement Phase: Resting Uterine Contraction Intensity: Mild Results Result Diagrams: 10/31/17 10:14 10/30/17 16:00 Abnormal lab results 10/30/17 10/30/17 10/30/17 Range/Units 16:00 16:00 16:00 MCH 27 L (28-32) pg RDW 17.5 H (13.2-15.2) % POC Glucose (70-105) Lactate Dehydrogenase 238 H (91-180) units/L Urine WBC (Auto) 10.0 H (0.0-6.0) /HPF 10/30/17 Range/Units 18:24 MCH (28-32) pg RDW (13.2-15.2) % POC Glucose 63 L (70-105) Lactate Dehydrogenase (91-180) units/L Urine WBC (Auto) (0.0-6.0) /HPF All other labs normal. Assessment and Plan A: IUP at 32w2d Chronic HTN with superimposed preeclampsia, previously stable but now with hypertensive emergency and new onset headache Pregestational Diabetes Obesity Advanced Maternal Age Previous section Multiparity desires permanent sterilization, pt desires bilateral salpingectomy- consent on chart and valid GBS unknown P: Proceed with repeat cesareans section, bilateral salpingectomy and other indicated procedures
[2017-10-30] MEDS ORDERED: WATER FOR IRRIG STERILE IR ONE (18:30)
[2017-10-30] MEDS ORDERED: NACL 0.9% IR ONE (18:30)
[2017-10-30] MEDS ORDERED: VERSED ONE (19:22)
[2017-10-30] MEDS ORDERED: ZOFRAN ONE (19:43)
[2017-10-30] MEDS ORDERED: DILAUDID ONE (19:50)
[2017-10-30] MEDS ORDERED: NEO SYNEPHRINE/NS Syringe(OR USE) IV ONE (20:00)
[2017-10-30] MEDS ORDERED: XYLOCAINE MPF 2% ONE (20:06)
[2017-10-30] MEDS ORDERED: PHENERGAN PO PRN (20:55)
[2017-10-30] MEDS ORDERED: PHENERGAN PR PRN (20:55)
[2017-10-30] MEDS ORDERED: NARCAN 0.4 MG/1 ML IV PRN ×2 (20:55→23:41)
--- NOTE | 2017-10-30 20:55 | Anesthesia Consultation ---
Anesthesia Consult and Med Hx Date of service: 10/30/17 - Airway Anesthetic Teeth Evaluation: Good ROM Head & Neck: Adequate Mental/Hyoid Distance: Adequate Mallampati Class: Class III Intubation Access Assessment: Possibly Difficult - Pulmonary Exam CTA: Yes - Cardiac Exam Cardiac Exam: RRR - Pre-Operative Health Status ASA Pre-Surgery Classification: ASA3, Emergency Proposed Anesthetic Plan: Epidural, Spinal - Pulmonary Hx Smoking: No Hx Asthma: No COPD: No Hx Pneumonia: No - Cardiovascular System Hx Hypertension: Yes (nifedipine and labetalol) Hx Coronary Artery Disease: Yes - Central Nervous System Hx Seizures: No Hx Psychiatric Problems: Yes (depression) - Endocrine Hx Renal Disease: No Hx End Stage Renal Disease: No Hx Insulin Dependent Diabetes: Yes Hx Hypothyroidism: No Hx Hyperthyroidism: No - Hematic Hx Anemia: No Hx Sickle Cell Disease: No - Other Systems Hx Alcohol Use: No
--- NOTE | 2017-10-30 20:55 | Post Anesthesia Evaluation ---
- Post Anesthesia Evaluation Patient Participated: Yes Airway Patent: Yes Stable Respiratory Function: Yes Nausea/Vomiting: No Temp > 96.8F: Yes Pain Manageable: Yes Adequeate Hydration: Yes Anesthesia Complications: No Block Receding Appropriately: Yes Patient on Ventilator: No
--- NOTE | 2017-10-30 20:55 | Anesthesia Day of Surgery ---
Anesthesia Day of Surgery - Day of Surgery Patient Examined: Yes Patient H&P Reviewed: Yes Patient is NPO: Yes
[2017-10-30] MEDS ORDERED: TORADOL IV PRN ×2 (20:57→23:41)
[2017-10-30] MEDS ORDERED: MAGNESIUM SULFATE 40GM/1000ML 40 GM/1,000 ML BAG IV ONE (20:57)
[2017-10-30] MEDS ORDERED: DILAUDID IV PRN (20:58)
[2017-10-30] MEDS ORDERED: SODIUM CHLORIDE FLUSH SYRINGE 10 ML IV SCH (21:00)
--- NOTE | 2017-10-30 21:43 | Operative Report ---
Operative Report Operative Report: Date of procedure: October 30, 2017 Preoperative diagnosis: 1) IUP at 32w2d 2) Previous x 1 3) Chronic HTN with superimposed preeclampsia 4) Chronic placental abruption 5) Pregestational Diabetes 6) Obesity 7) Undesired Fertility Postoperative diagnosis: Same Procedure: 1) Repeat low transverse section 2) Bilateral salpingectomy Surgeon: Fadia Walters M.D. Anesthesia: Spinal-epidural Findings: 1) Viable male , Apgars 8 and 9, weight 2147 g, (4 lb 11.7 oz) in vertex presentation 2) Normal-appearing uterus ovaries and tubes Estimated blood loss: 1000 mL IV fluids: 1000 mL Urine output: 300 mL, clear at the end of the procedure Drains: [place] to gravity Specimens: Placenta to pathology Complications: None. Counts correct x 3 Disposition: Stable to PACU Indication for procedure: The patient is a 37 year old -Luxembourger female DOMINGO 12/23/17 at 32w2d with hypertensive emergency, h/o previously diagnosed chronic hypertension with superimposed preeclampsia on PO medication, pregestational diabetes, obesity, chronic placental abruption, a desire for pand previous section Operation in detail: After the risks, benefits, alternatives and complications were explained to the patient she gave informed consent for the procedure. She was subsequently taken to the operating room where spinal-epidural anesthesia was noted to be adequate. She was subsequently placed in the dorsal supine position with leftward tilt and prepped and draped in a normal sterile fashion. heart tones were noted to be in the 130s prior to incision. A timeout was performed. A Pfannenstiel skin incision was made with the knife and carried down to the layer of the fascia with the Bovie. The fascia was incised in the midline and the fascial incision was extended bilaterally with the Bovie. Attention was then turned to the superior aspect of the incision which was grasped with two Kochers, tented up, and dissected off the rectus muscles. Attention was then turned to the inferior aspect of the incision which was grasped with two Kochers , tented up and dissected off the rectus muscles. The rectus muscles were then in the midline and partially transected for adequate visualization. The peritoneum was then entered sharply between two Shikha clamps. The peritoneal incision was extended with good visualization of the bladder. The peritoneal incision was then stretched. An Michael self-retaining retractor was placed for visualization. The bladder blade was placed. The vesicouterine peritoneum was noted to be adherent to the lower uterine segment and a bladder flap was not created. A transverse incision was made in the lower uterine segment with a knife and extended bilaterally with the bandage scissors. The head was delivered without difficulty followed by shoulders and body. was bulb suctioned at delivery. The cord was clamped and cut and the was handed to NICU staff in attendance. Cord blood was collected. The placenta was then delivered manually. The uterus was then exteriorized and cleared of all clots and debris. The hysterotomy was then reapproximated with 0 Vicryl in a running locked fashion. Attention was then turned to the salpingectomy. Both fallopian tubes were followed out to the fimbriae and excised with the Ligasure and sent to pathology. Hemostasis was noted. The hysterotomy was inspected and hemostasis was noted. The uterus was then returned to the peritoneal cavity. All instruments were removed from the abdominal cavity. The gutters were irrigated and cleared of all clots and debris. The hysterotomy was again inspected and noted to be hemostatic. Surgicel was then placed over the hysterotomy. The rectus muscles and peritoneum were then reapproximated with 2-0 Vicryl in a running fashion in one layer. Surgicel was placed across the cut edges of the rectus muscle and hemostasis was noted. The fascia was reapproximated with 0 Vicryl in a running fashion. The subcutaneous tissue was reapproximated with 3- 0 Vicryl in a standard fashion. The skin was reapproximated with 4-0 Vicryl in a subcuticular fashion. The incision was then covered with steri strips and a pressure dressing. The procedure was then ended. The patient tolerated the procedure well and was taken to the PACU in stable condition. All instrument, lap, and needle counts were correct 3. The patient will be placed on magnesium sulfate in the PACU for seizure prophylaxis.
--- NOTE | 2017-10-30 21:43 | Procedure Note ---
OB Delivery Note - Delivery Date of Delivery: 10/30/17 Surgeon: LEAH NUÑEZ Estimated blood loss: 1000cc - Section Preop diagnosis: repeat , other (CHTN with superimposed preeclampsia ) Postop diagnosis: same section procedure: section, repeat low transverse, other (bi) Disposition: PACU Complications: none Narrative: Please see operative report. - Infant A at 1 minute: 8 at 5 minutes: 9 Gender: Male (2147g (4 lb 11.7 oz) @ 1909 pm)
[2017-10-30] MEDS ORDERED: MAGNESIUM SULFATE 40GM/1000ML 40 GM/1,000 ML BAG IV SCH (22:00)
[2017-10-30 22:59] LABS: Basophils # (Auto) 0.1 K/mm3 (0.0-0.1); Basophils % (Auto) 0.4 % (0.0-1.8); Eosinophils # (Auto) 0.1 K/mm3 (0.0-0.4); Eosinophils % (Auto) 0.8 % (0.0-4.3); Hematocrit 32.2 % (30.3-42.9); Hemoglobin 10.3 gm/dl (10.1-14.3); Lymphocytes # (Auto) 1.3 K/mm3 (1.2-5.4); Lymphocytes % (Auto) 7.5 % (13.4-35.0); Mean Corpuscular HGB Conc 32 % (30-34); Mean Corpuscular Hemoglobin 26 pg (28-32); Mean Corpuscular Volume 82 fl (79-97); Monocytes # (Auto) 0.5 K/mm3 (0.0-0.8); Monocytes % (Auto) 2.8 % (0.0-7.3); Platelet Count 315 K/mm3 (140-440); Red Blood Count 3.93 M/mm3 (3.65-5.03); Red Cell Distribution Width 17.5 % (13.2-15.2)
[2017-10-30] MEDS ORDERED: D50W (25GM) Syringe IV PRN (23:41)
[2017-10-30] MEDS ORDERED: ANCEF/NS 1 GM/50 ML 1 GM/50 ML BAG IV SCH (23:41)
[2017-10-30] MEDS ORDERED: TUCKS PAD TP PRN (23:41)
[2017-10-30] MEDS ORDERED: SODIUM CHLORIDE FLUSH SYRINGE 10 ML IV NR (23:41)
[2017-10-30] MEDS ORDERED: MYLICON PO PRN (23:41)
[2017-10-31] MEDS: HumuLIN R SUB-Q SCH ×2 (00:30→06:28)
[2017-10-31] MEDS: ceFAZolin 1 GM in NACL 0.9% 20 ML IV SCH ×2 (02:23→10:25)
[2017-10-31] MEDS ORDERED: M-M-R II VACCINE SUB-Q ONE (06:00)
[2017-10-31] MEDS ORDERED: BOOSTRIX IM ONE (06:00)
[2017-10-31] MEDS: ZOFRAN IV PRN ×2 (08:16→15:12)
--- NOTE | 2017-10-31 08:52 | Progress Note ---
Assessment and Plan A/P POD#1 s/p superimposed pree/severe on mag continue current Post op orders zofran for nausea Subjective - Subjective Date of service: 10/31/17 Principal diagnosis: s/p repeat c/sec for superimposed pree Patient reports: appetite normal, voiding normally, pain well controlled [place]: doing well, in NICU Objective - Vital Signs Latest vital signs: Vital Signs Temp Pulse Resp BP BP Pulse Ox 10/31/17 04:00 98.7 F 69 18 141/78 10/31/17 00:30 98.6 F 89 18 153/103 10/30/17 22:30 98.7 F 90 16 154/82 10/30/17 20:45 98.6 F 10/30/17 18:07 100 H 167/87 10/30/17 18:04 96 H 179/93 10/30/17 17:42 102 H 203/93 10/30/17 17:39 99 H 206/111 10/30/17 17:35 8 L 83 L 10/30/17 17:24 98 H 84 10/30/17 17:22 89 197/91 10/30/17 17:08 99 H 212/100 10/30/17 17:02 105 H 100 10/30/17 16:57 101 H 100 10/30/17 16:54 96 H 227/105 10/30/17 16:52 96 H 99 10/30/17 16:47 99 H 100 10/30/17 16:42 93 H 99 10/30/17 16:38 94 H 189/103 10/30/17 16:37 94 H 99 10/30/17 16:32 99 H 100 10/30/17 16:28 98 H 199/100 10/30/17 16:27 97 H 98 10/30/17 16:23 96 H 202/91 10/30/17 16:22 97 H 100 10/30/17 16:16 98 H 100 10/30/17 16:14 99.1 F 18 10/30/17 16:11 95 H 100 10/30/17 16:07 98 H 203/95 10/30/17 16:06 92 H 100 10/30/17 16:04 98 H 201/95 10/30/17 16:01 98 H 100 10/30/17 15:56 99 H 100 10/30/17 15:52 100 H 192/112 10/30/17 15:51 99 H 100 Intake and Output 10/30/17 10/31/17 10/31/17 23:59 07:59 15:59 Intake Total 1100 Output Total 350 Balance 750 Intake: IV 1100 Output: Urine 350 - Exam Breasts: Present: normal Cardiovascular: Present: Regular rate, Normal S1 Lungs: Present: Clear to auscultation, Normal air movement Abdomen: Present: normal appearance, soft, normal bowel sounds. Absent: distention, tenderness, guarding Vulva: both: normal Uterus: Present: normal, firm, fundal height below umbilicus. Absent: bogginess , tenderness Extremities: Present: normal Deep Tendon Reflex Grade: Normal +2 Incision: Present: normal, dry, dressed - Labs Labs: Abnormal lab results 10/30/17 10/30/17 10/30/17 Range/Units 16:00 16:00 16:00 WBC (4.5-11.0) K/mm3 MCH 27 L (28-32) pg RDW 17.5 H (13.2-15.2) % Lymph % (Auto) (13.4-35.0) % Seg Neutrophils % (40.0-70.0) % Seg Neutrophils # (1.8-7.7) K/mm3 POC Glucose (70-105) Magnesium (1.7-2.3) mg/dL Lactate Dehydrogenase 238 H (91-180) units/L Urine WBC (Auto) 10.0 H (0.0-6.0) /HPF 10/30/17 10/30/17 10/31/17 Range/Units 18:24 22:50 04:15 WBC 17.0 H (4.5-11.0) K/mm3 MCH 26 L (28-32) pg RDW 17.5 H (13.2-15.2) % Lymph % (Auto) 7.5 L (13.4-35.0) % Seg Neutrophils % 88.5 H (40.0-70.0) % Seg Neutrophils # 15.0 H (1.8-7.7) K/mm3 POC Glucose 63 L (70-105) Magnesium 5.20 H (1.7-2.3) mg/dL Lactate Dehydrogenase (91-180) units/L Urine WBC (Auto) (0.0-6.0) /HPF
[2017-10-31] MEDS: FEOSOL PO SCH (10:26)
[2017-10-31 10:52] LABS: Hematocrit 30.4 % (30.3-42.9); Hemoglobin 9.9 gm/dl (10.1-14.3)
[2017-10-31] MEDS ORDERED: APRESOLINE IV PRN (11:36)
[2017-10-31] MEDS: PROCARDIA XL PO SCH (14:49)
[2017-10-31] MEDS: NORMODYNE PO SCH ×2 (14:49→21:04)
[2017-10-31] MEDS: MOTRIN PO PRN (21:03)
[2017-10-31] MEDS: MILK OF MAGNESIA PO PRN (21:06)
[2017-10-31] MEDS: PERCOCET 5/325 PO PRN (22:03)
[2017-11-01] MEDS: PERCOCET 5/325 PO PRN ×3 (01:59→20:05)
[2017-11-01] MEDS: HumuLIN R SUB-Q SCH ×2 (02:00→06:39)
[2017-11-01] MEDS: PROCARDIA XL PO SCH (12:07)
[2017-11-01] MEDS: NORMODYNE PO SCH ×2 (12:07→23:06)
[2017-11-01] MEDS: FEOSOL PO SCH (12:10)
--- NOTE | 2017-11-01 13:21 | Progress Note ---
Assessment and Plan A/P POD#2 s/p superimposed pree/severe s/p nausea resolved mag citrate for BM continue current Post op orders resume antidepressive meds VSS incision c/d/i Subjective - Subjective Date of service: 11/01/17 Principal diagnosis: s/p repeat c/sec for superimposed pree Patient reports: appetite normal, voiding normally, pain well controlled, flatus , ambulating normally [place]: doing well, in NICU Objective - Vital Signs Latest vital signs: Vital Signs Temp Pulse Resp BP BP Pulse Ox 11/01/17 12:10 99.2 F 110 H 20 145/81 11/01/17 12:07 110 H 145/81 11/01/17 08:35 98.2 F 71 20 137/88 11/01/17 04:00 98.6 F 79 16 136/78 11/01/17 00:00 98.7 F 69 18 121/71 10/31/17 21:04 108 H 168/98 10/31/17 20:00 98.6 F 108 H 16 168/98 10/31/17 17:31 97.8 F 105 H 18 157/98 96 10/31/17 14:49 90 144/76 10/31/17 14:31 97.6 F 107 H 18 131/91 98 Intake and Output 10/31/17 11/01/17 11/01/17 23:59 07:59 15:59 Intake Total 360 Output Total 800 1400 600 Balance -800 -1400 -240 Intake: Oral 360 Output: Urine 800 1400 600 Indwelling Catheter 800 Void 1400 600 Other: Total, Intake Amount 360 Total, Output Amount 800 600 600 # Voids Void 1 1 - Exam Breasts: Present: normal Cardiovascular: Present: Regular rate, Normal S1 Lungs: Present: Clear to auscultation, Normal air movement Abdomen: Present: normal appearance, soft, normal bowel sounds. Absent: distention, tenderness, guarding Vulva: both: normal Uterus: Present: normal, firm, fundal height below umbilicus. Absent: bogginess , tenderness Extremities: Present: normal Deep Tendon Reflex Grade: Normal +2 Incision: Present: normal, dry, intact - Labs Labs: Abnormal lab results 10/31/17 10/31/17 11/01/17 Range/Units 15:46 17:21 02:13 POC Glucose 113 H 159 H (70-105) Magnesium 6.50 H (1.7-2.3) mg/dL 11/01/17 11/01/17 Range/Units 06:30 12:09 POC Glucose 176 H 120 H (70-105) Magnesium (1.7-2.3) mg/dL
[2017-11-01] MEDS ORDERED: CITRATE OF MAGNESIA PO ONE (13:22)
[2017-11-01] MEDS: MOTRIN PO PRN (20:06)
[2017-11-02] MEDS: HumuLIN R SUB-Q SCH ×4 (00:57→20:05)
[2017-11-02] MEDS: PERCOCET 5/325 PO PRN ×3 (03:13→22:59)
[2017-11-02] MEDS: MOTRIN PO PRN ×3 (03:13→22:59)
[2017-11-02] MEDS: NORMODYNE PO SCH ×2 (10:16→22:59)
[2017-11-02] MEDS: PROCARDIA XL PO SCH (10:16)
[2017-11-02] MEDS: FEOSOL PO SCH (10:16)
[2017-11-02] MEDS: ZOLOFT PO SCH (10:45)
[2017-11-02] MEDS: LANSINOH TP PRN (12:15)
[2017-11-02] MEDS ORDERED: D50W (25GM) Syringe IV PRN (17:41)
[2017-11-02] MEDS: GLUCOPHAGE PO SCH (20:05)
--- NOTE | 2017-11-02 22:05 | Progress Note ---
Assessment and Plan A: POD#3 s/p repeat with bilateral salpingectomy at 32 wks for chronic HTN with superimposed preeclampsia s/p Magnesium sulfate x 24 hrs. Pregestational diabetes- Suboptimal glucose control Obesity P: Restart oral hypoglycemics and monitor glucose. Anticipate discharge tomorrow Subjective - Subjective Date of service: 11/02/17 Principal diagnosis: s/p repeat c/sec for superimposed pree Interval history: Pt without complaints presently. Her baby is doing well in the NICU. Patient reports: appetite normal, voiding normally, pain well controlled, flatus , bowel movement, ambulating normally : doing well, in NICU Objective - Vital Signs Latest vital signs: Vital Signs Temp Pulse Resp BP BP BP Pulse Ox 11/02/17 16:45 98.4 F 108 H 18 166/92 11/02/17 11:40 91 H 18 145/79 99 11/02/17 10:16 103 H 153/95 11/02/17 08:00 98.5 F 103 H 18 153/95 11/02/17 04:00 98.4 F 88 16 137/71 11/02/17 00:00 98.7 F 69 18 138/80 11/01/17 23:06 81 136/72 Intake and Output 11/02/17 11/02/17 11/02/17 06:59 14:59 22:59 Other: Voiding Method Toilet - Exam Breasts: Present: deferred Cardiovascular: Present: Regular rate Lungs: Present: Clear to auscultation Abdomen: Present: soft (obese) Uterus: Present: fundal height below umbilicus Extremities: Present: edema (trace) Incision: Present: intact - Labs Labs: Abnormal lab results 11/02/17 11/02/17 11/02/17 Range/Units 00:47 06:37 20:02 POC Glucose 150 H 197 H 164 H (70-105)
[2017-11-03] MEDS: MOTRIN PO PRN ×2 (05:52→12:55)
[2017-11-03] MEDS: PERCOCET 5/325 PO PRN ×2 (05:53→12:58)
[2017-11-03] MEDS ORDERED: TRADJENTA PO SCH (08:00)
[2017-11-03] MEDS: GLUCOPHAGE PO SCH ×2 (08:41→17:06)
[2017-11-03] MEDS: NORMODYNE PO SCH ×2 (08:57→10:36)
[2017-11-03] MEDS: PROCARDIA XL PO SCH ×2 (08:57→10:36)
[2017-11-03] MEDS: FEOSOL PO SCH ×2 (08:58→10:36)
[2017-11-03] MEDS: MILK OF MAGNESIA PO PRN (10:35)
[2017-11-03] MEDS: ZOLOFT PO SCH (10:35)
[2017-11-03] MEDS: HumuLIN R SUB-Q SCH ×2 (10:53→15:19)
[2017-11-03] MEDS ORDERED: NORMODYNE PO ONE (12:00)
--- NOTE | 2017-11-03 15:47 | Progress Note ---
Assessment and Plan A: POD#4 s/p repeat with bilateral salpingectomy at 32 wks for chronic HTN with superimposed preeclampsia s/p Magnesium sulfate x 24 hrs. Pregestational diabetes- Suboptimal glucose control Obesity Wound seroma P: Reinforce incision care instructions. Prophylactic course of Clindamycin Discharge today with follow up on Sun10/28/17 for BP and incision check. Subjective - Subjective Date of service: 11/03/17 Principal diagnosis: s/p repeat c/sec for superimposed pree Interval history: Pt with serous drainage of her incision. Oral hypoglycemics started today. Baby doing well in the NICU. Patient reports: appetite normal, voiding normally, pain well controlled, flatus , bowel movement, ambulating normally, no nauseated : doing well, in NICU Objective - Vital Signs Latest vital signs: Vital Signs Temp Pulse Resp BP BP Pulse Ox 11/03/17 12:58 20 11/03/17 12:55 20 11/03/17 12:52 88 152/80 11/03/17 08:57 100 H 167/87 11/03/17 08:49 98.0 F 98 H 16 167/86 99 11/03/17 06:53 18 11/03/17 06:52 18 11/03/17 05:53 18 11/03/17 05:52 18 11/03/17 04:47 98.9 F 92 H 20 164/95 96 11/03/17 00:44 98.5 F 20 160/95 11/02/17 23:59 18 11/02/17 22:59 111 H 20 153/81 153/81 11/02/17 16:45 98.4 F 108 H 18 166/92 Intake and Output 11/03/17 11/03/17 11/03/17 06:59 14:59 22:59 Intake Total 600 240 Balance 600 240 Intake: Oral 240 240 Intake, Free Water 360 Other: Total, Intake Amount 240 240 # Voids Void 2 - Exam Breasts: Present: deferred Cardiovascular: Present: Regular rate Lungs: Present: Clear to auscultation Abdomen: Present: soft Uterus: Present: fundal height below umbilicus Extremities: Present: normal Incision: Present: intact (serosanguinous drainage at center of incision ) - Labs Labs: Abnormal lab results 11/02/17 11/03/17 11/03/17 Range/Units 20:02 07:30 10:51 POC Glucose 164 H 135 H 160 H (70-105) 05// Range/Units 15:17 POC Glucose 167 H (70-105)
--- NOTE | 2017-11-03 15:48 | Discharge Summary ---
Providers - Providers Date of Admission: 10/30/17 17:28 Date of discharge: 11/03/17 Attending physician: GRANT FERNANDO MD 10/30/17 23:41 Consult to Insurance Defense Paralegal [CONS] Routine Reason For Exam: Primary care physician: GRANT FERNANDO MD Hospitalization Reason for admission: other (Chronic HTN with superimposed Preeclampsia ) Delivery: Procedure: section, repeat low transverse, other (bilateral salpingectomy ) Procedure details: Please see operative report. Incision: intact Other procedures: none Discharge diagnosis: delivery [place] baby: male Hospital course: Pt was admitted with hypertensive emergency indicative of chronic hypertension with superimposed preeclampsia. She was started on magnesium sulfate for seizure prophylaxis and underwent repeat section with bilateral salpingectomy which she tolerated well. She remained on magnesium sulfate for 24 hr after the . The remainder of her postoperative course was complicated by poorly controlled blood pressures and blood glucose. She was restarted on Procardia and Labetalol as well as Janumet that she takes at home. She was discharge home on POD#4 with follow up on SunNovember 07, 2017. Condition at discharge: Stable Disposition: DC-01 TO HOME OR SELFCARE - Discharge Diagnoses (1) S/P section Status: Acute (2) delivery Status: Acute (3) Placental abruption Status: Acute Qualifiers: Trimester: second trimester Qualified Code(s): O45.92 - Premature separation of placenta, unspecified, second trimester (4) Obesity (BMI 30-39.9) Status: Acute (5) Pre-eclampsia superimposed on chronic hypertension, delivered Status: Acute (6) Chronic hypertension Status: Acute (7) Diabetes in Status: Acute Qualifiers: Diabetes in type: pre-existing, type 2 Trimester: third trimester Qualified Code(s): O24.113 - Pre-existing type 2 diabetes mellitus, in , third trimester (8) Postoperative wound seroma Status: Acute Plan - Discharge Medications Prescriptions: buPROPion [Wellbutrin] 100 mg PO BID #60 tab Clindamycin [Clindamycin CAP] 300 mg PO Q6H #28 capsule Fluconazole [Diflucan] 150 mg PO Q72H #3 tablet Ibuprofen [Motrin] 800 mg PO Q8HR PRN #30 tablet PRN Reason: Pain Labetalol [Normodyne TAB] 400 mg PO BID #120 tablet NIFEdipine XL [Procardia Xl] 90 mg PO QDAY #30 tablet Sitagliptin Phos/Metformin HCl [Janumet 50-1,000 mg] 1 tab PO BID #60 tablet - Provider Discharge Summary Activity: routine, no sex for 6 weeks, no heavy lifting 4 weeks, no strenuous exercise Diet: routine Instructions: routine Additional instructions: [] Smoking cessation referral if applicable(refer to patient education folder for contact #) [] Refer to [facility] Booklet Call your doctor immediately for: * Fever > 100.5 * Heavy vaginal bleeding ( >1 pad per hour) * Severe persistent headache * Shortness of breath * Reddened, hot, painful area to leg or breast * Drainage or odor from incision. * Keep incision clean and dry at all times and follow doctor's instructions regarding bathing/showering - Follow up plan Follow up: LEAH NUÑEZ MD [Staff Physician] - 11/07/17 (please schedule BP and incision check) Forms: [facility] Discharge Summary
[2017-11-03] MEDS: LANSINOH TP PRN (17:44)
[2017-11-03 18:04] VITALS: BP 119/68
[2017-11-03] MEDS ORDERED: NORMODYNE PO SCH (22:00)
== END 2017-11-03 19:30 | disposition home or self-care (01) | DRG 765 ==
LOC: TRG 15:26 → APU 17:28 → OB 22:23
PROVIDERS: ADMIT Obstetrics & Gynecology; ATTEND Obstetrics & Gynecology
PROC: 3E0234Z Introduction of Serum, Toxoid and Vaccine into Muscle, Percutaneous Approach (ICD-10-PCS; 2017-10-31)
PROC: 10D00Z1 Extraction of Products of Conception, Low, Open Approach (ICD-10-PCS; principal; 2017-11-03)
PROC: 0UT70ZZ Resection of Bilateral Fallopian Tubes, Open Approach (ICD-10-PCS; 2017-11-03)
DX: O11.3 Pre-existing hypertension with pre-eclampsia, third trimester (principal); O60.14X0 Preterm labor third trimester with preterm delivery third trimester, not applicable or unspecified; O45.93 Premature separation of placenta, unspecified, third trimester; L76.34 Postprocedural seroma of skin and subcutaneous tissue following other procedure; O24.419 Gestational diabetes mellitus in pregnancy, unspecified control; O99.214 Obesity complicating childbirth; E66.9 Obesity, unspecified; Z3A.32 32 weeks gestation of pregnancy; Z37.0 Single live birth; O16.4 Unspecified maternal hypertension, complicating childbirth; Z82.49 Family history of ischemic heart disease and other diseases of the circulatory system; Z79.899 Other long term (current) drug therapy; Z79.4 Long term (current) use of insulin; Z79.2 Long term (current) use of antibiotics; Z68.35 Body mass index [BMI] 35.0-35.9, adult; Z23 Encounter for immunization; O90.89 Other complications of the puerperium, not elsewhere classified; Y83.8 Other surgical procedures as the cause of abnormal reaction of the patient, or of later complication, without mention of misadventure at the time of the procedure; Y92.89 Other specified places as the place of occurrence of the external cause
CPT/HCPCS: 36415; 81001; 82565; 82962; 83615; 83735; 84450; 84460; 84550; 85014; 85018; 85025; 85027; 86592; 86850; 86900; 86901; 88302; 88307; 99211; A6250; G0463; J0360; J0690; J1170; J1815; J1885; J2250; J2274; J2370; J2405; J2590; J2765; J3475; J7120

== ENCOUNTER 2017-11-19 13:42 | Observation (INO) | payer OTHER, MEDICAID ==
[2017-11-19] MEDS ORDERED: TUCKS PAD TP PRN (13:45)
[2017-11-19] MEDS ORDERED: MYLICON PO PRN (13:45)
[2017-11-19] MEDS ORDERED: LANSINOH TP PRN (13:45)
[2017-11-19] MEDS ORDERED: DILAUDID IV PRN (13:45)
[2017-11-19] MEDS ORDERED: ZOFRAN IV PRN (13:45)
[2017-11-19] MEDS ORDERED: NARCAN 0.4 MG/1 ML IV PRN (13:45)
[2017-11-19] MEDS ORDERED: MOTRIN PO PRN (13:45)
[2017-11-19] MEDS ORDERED: D50W (25GM) Syringe IV PRN (13:52)
[2017-11-19] MEDS ORDERED: SODIUM CHLORIDE FLUSH SYRINGE 10 ML IV NR (14:00)
[2017-11-19] MEDS ORDERED: PITOCin/NS 20 UNIT/1000ML DRIP 20 UNITS/1,000 ML BAG IV SCH (14:00)
[2017-11-19] MEDS ORDERED: NORMODYNE IV NR (15:00)
[2017-11-19] MEDS: HumuLIN R SUB-Q SCH ×2 (15:30→20:41)
[2017-11-19] MEDS ORDERED: NORMODYNE IV ONE (15:32)
[2017-11-19] MEDS: PERCOCET 5/325 PO PRN ×2 (16:56→23:30)
[2017-11-19 17:07] LABS: Bilirubin,Urine NEG (Negative); Blood,Urine LG (Negative); Color,Urine Red (Yellow); RBC,Urine > 182.0 /HPF (0.0-6.0); Urobilinogen,Urine < 2.0 mg/dL (<2.0)
[2017-11-19 17:08] LABS: Bacteria,Urine 1+ /HPF (Negative); WBC,Urine > 182.0 /HPF (0.0-6.0)
[2017-11-19] MEDS ORDERED: APRESOLINE IV PRN (17:22)
[2017-11-19] MEDS ORDERED: NORMODYNE PO ONE (18:15)
[2017-11-19 19:51] LABS: Basophils % (Auto) 0.5 % (0.0-1.8); Eosinophils # (Auto) 0.1 K/mm3 (0.0-0.4); Eosinophils % (Auto) 1.1 % (0.0-4.3); Hematocrit 30.4 % (30.3-42.9); Hemoglobin 9.6 gm/dl (10.1-14.3); Lymphocytes # (Auto) 1.6 K/mm3 (1.2-5.4); Lymphocytes % (Auto) 20.1 % (13.4-35.0); Mean Corpuscular HGB Conc 31 % (30-34); Mean Corpuscular Volume 82 fl (79-97); Monocytes # (Auto) 0.5 K/mm3 (0.0-0.8); Platelet Count 445 K/mm3 (140-440); Red Cell Distribution Width 17.1 % (13.2-15.2)
[2017-11-19 19:54] LABS: Mean Corpuscular Hemoglobin 26 pg (28-32)
[2017-11-19 20:03] LABS: Alanine Aminotransferase 24 units/L (7-56); Albumin 3.7 g/dL (3.9-5); BUN/Creatinine Ratio 16; Blood Urea Nitrogen 16 mg/dL (7-17); Calcium 8.8 mg/dL (8.4-10.2); Hemolysis Index 3
[2017-11-19] MEDS: PROCARDIA XL PO SCH (20:37)
--- NOTE | 2017-11-19 21:53 | History and Physical Report ---
History of Present Illness Date of examination: 11/19/17 Date of admission: 11/19/17 13:43 Chief complaint: hypertension, headache History of present illness: Pt is a 37 year old -Swedish female s/p repeat section with bilateral salpingectomy at 32 wks secondary to chronic hypertension with superimposed preeclampsia on 10/30/17 presents to the office complaining of severe abdominal pain, elevated blood pressures despite compliance with medication regimen, and intermittent headache not improved by Motrin. She reports multiple social stressors and has not been compliant with postoperative instructions for limited activity. She also reports not taking any of her "diabetes medications" in a week because they are lost. 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 History: herpes Family/Genetic History: diabetes, hypertension Social history: no significant social history - Obstetrical History : 4 Medications and Allergies Allergies Allergy/AdvReac Type Severity Reaction Status Date / Time No Known Allergies Allergy Verified 05/13/14 23:02 Home Medications Medication Instructions Recorded Confirmed Last Taken Type Insulin NPH Human Isophane 86 units SQ BID 09/21/17 11/19/17 10/05/17 22:00 History [Novolin N] 86 Labetalol [Normodyne] 200 mg PO TID 09/21/17 11/19/17 10/06/17 13:40 History Vit No.130/Iron/Folic 1 tab PO DAILY 09/21/17 11/19/17 11/19/17 09:00 History [ Tablet] buPROPion [Wellbutrin] 100 mg PO DAILY 09/21/17 11/19/17 10/05/17 12:00 History NIFEdipine XL [Procardia Xl] 90 mg PO QDAY #30 tablet 09/30/17 11/19/17 09:00 Rx Clindamycin [Clindamycin CAP] 300 mg PO Q6H #28 capsule 11/03/17 11/19/17 Unknown Rx Fluconazole [Diflucan] 150 mg PO Q72H #3 tablet 11/03/17 11/19/17 Unknown Rx Ibuprofen [Motrin] 800 mg PO Q8HR PRN #30 tablet 11/03/17 11/19/17 11/18/17 21: 00 Rx Labetalol [Normodyne TAB] 400 mg PO BID #120 tablet 11/03/17 11/19/17 11/19/17 09:00 Rx NIFEdipine XL [Procardia Xl] 90 mg PO QDAY #30 tablet 11/03/17 11/19/17 09:00 Rx Sitagliptin Phos/Metformin HCl 1 tab PO BID #60 tablet 11/03/17 11/19/17 09:00 Rx [Janumet 50-1,000 mg] buPROPion [Wellbutrin] 100 mg PO BID #60 tab 11/03/17 11/19/17 11/18/17 22:00 Rx oxyCODONE /ACETAMINOPHEN [Percocet 1 tab PO Q6HR PRN #40 tablet 11/03/17 Unknown Rx 5/325] Active Meds: Active Medications Acetaminophen/Butalbital/Caffeine (Fioricet) 2 tab PO Q4H PRN PRN Reason: Headache Dextrose (D50w (25gm) Syringe) 50 ml IV PRN PRN PRN Reason: Hypoglycemia Hydralazine HCl (Apresoline) 5 mg IV Q30MIN PRN PRN Reason: Hypertension Hydromorphone HCl (Dilaudid) 0.25 mg IV Q3H PRN PRN Reason: Pain, Moderate (4-6) Oxytocin/Sodium Chloride (Pitocin/Ns 20 Unit/1000ml Drip) 20 units in 1,000 mls @ 250 mls/hr IV DIRECT FREDY Ibuprofen (Motrin) 800 mg PO Q6H PRN PRN Reason: Pain, Mild (1-3) Last Admin: 11/19/17 17:40 Dose: 800 mg Insulin Human Regular (Humulin R) 0 units SUB-Q PC FREDY; Protocol Last Admin: 11/19/17 20:41 Dose: 3 units Labetalol HCl (Normodyne) 600 mg PO BID FREDY Linagliptin (Tradjenta) 5 mg PO QDAY FREDY Metformin HCl (Glucophage) 1,000 mg PO BIDDIAB FREDY Multi-Ingredient Ointment (Lansinoh) 1 applic TP PRN PRN PRN Reason: dryness/cracking Naloxone HCl (Narcan 0.4 Mg/1 Ml) 0.1 mg IV Q2MIN PRN PRN Reason: Res Rate </= 8 or 02 SAT < 92% Nifedipine (Procardia Xl) 90 mg PO QDAY FREDY Last Admin: 11/19/17 20:37 Dose: 90 mg Ondansetron HCl (Zofran) 4 mg IV Q8H PRN PRN Reason: Nausea And Vomiting Oxycodone/Acetaminophen (Percocet 5/325) 1 tab PO Q6H PRN PRN Reason: Pain, Moderate (4-6) Last Admin: 11/19/17 16:56 Dose: 1 tab Simethicone (Mylicon) 80 mg PO Q6H PRN PRN Reason: Gas pain Sodium Chloride (Sodium Chloride Flush Syringe 10 Ml) 10 ml IV PRN NR Stop: 11/20/17 13:59 Witch Livia/Glycerin (Tucks Pad) 1 each TP PRN PRN PRN Reason: Hemorrhoids/cleansing/soothing Review of Systems All systems: negative Ears, nose, mouth and throat: headache - Vital Signs Vital signs: Vital Signs Temp Pulse Resp BP Pulse Ox 99.5 F 100 H 16 192/116 100 11/19/17 14:25 11/19/17 14:25 11/19/17 14:25 11/19/17 14:25 11/19/17 14:25 Temp Pulse Resp BP Pulse Ox 99.0 F 88 18 170/97 100 11/19/17 17:30 11/19/17 18:55 11/19/17 18:55 11/19/17 18:55 11/19/17 18:55 - Physical Exam Abdomen: Positive: soft (obese) Results Result Diagrams: 11/19/17 19:11 11/19/17 19:11 Abnormal lab results 11/19/17 11/19/17 11/19/17 Range/Units 16:36 19:11 19:11 Hgb 9.6 L (10.1-14.3) gm/dl MCH 26 L (28-32) pg RDW 17.1 H (13.2-15.2) % Plt Count 445 H (140-440) K/mm3 Seg Neutrophils % 72.3 H (40.0-70.0) % Potassium 3.5 L (3.6-5.0) mmol/L Glucose 170 H (65-100) mg/dL POC Glucose (70-105) Hemoglobin A1c (4-6) % Alkaline Phosphatase 132 H (35-129) units/L Albumin 3.7 L (3.9-5) g/dL Urine WBC (Auto) > 182.0 H (0.0-6.0) /HPF 11/19/17 11/19/17 Range/Units 19:11 20:24 Hgb (10.1-14.3) gm/dl MCH (28-32) pg RDW (13.2-15.2) % Plt Count (140-440) K/mm3 Seg Neutrophils % (40.0-70.0) % Potassium (3.6-5.0) mmol/L Glucose (65-100) mg/dL POC Glucose 154 H (70-105) Hemoglobin A1c 6.8 H (4-6) % Alkaline Phosphatase (35-129) units/L Albumin (3.9-5) g/dL Urine WBC (Auto) (0.0-6.0) /HPF All other labs normal. Assessment and Plan A: 1) s/p repeat with bilateral salpingectomy at 32 wks on October 30, 2017 secondary to chronic hypertension with superimposed preeclampsia 2) Headache 3) Poorly controlled hypertension on labetalol 400 mg BID and Procardia 90 mg 4) Diabetes Mellitus 5) Abdominal pain 6) Depression P: Admit to hospital for observation Antihypertensives to keep BP below severe range. CT head once BP below severe range Accucheks (fasting and two hour postprandials) Hospitalist consult as needed to optimize BP regimen Urinalysis, urine culture Continue Wellbutrin Continue to monitor clinical status
[2017-11-19] MEDS: WELLBUTRIN PO SCH (23:40)
--- NOTE | 2017-11-20 01:53 | Cat Scan Report ---
FINAL REPORT EXAM: CT HEAD/BRAIN WO CON HISTORY: Severe headache, HTN, superimposed preeclampsia,DM TECHNIQUE: Routine axial imaging was obtained of the brain without IV contrast. FINDINGS: The ventricular system is appropriate in size and is symmetric. There is no evidence of acute stroke or hemorrhage. There are no extra-axial fluid collections. The visualized sinuses are clear. The mastoid air cells are well pneumatized. The calvarium appears intact. IMPRESSION: Within normal limits.
[2017-11-20] MEDS: NORMODYNE PO SCH ×3 (03:10→22:36)
[2017-11-20] MEDS: GLUCOPHAGE PO SCH ×2 (07:58→17:25)
--- NOTE | 2017-11-20 08:03 | Progress Note ---
Assessment and Plan - Patient Problems (1) Chronic hypertension Current Visit: No Status: Acute Plan to address problem: Patient demonstrating slight clinical improvement We'll continue to monitor blood pressures closely and headache symptoms Subjective - Subjective Date of service: 11/20/17 Interval history: The patient reports slight improvement in her headache this morning. Upon entry into the room the patient was resting peacefully. Demonstrating improvement in blood pressures. Head CT was negative. Patient reports: appetite normal, voiding normally, pain well controlled Objective - Vital Signs Latest vital signs: Vital Signs Temp Pulse Resp BP BP Pulse Ox 11/20/17 04:45 97.8 F 85 20 134/72 100 11/20/17 03:10 90 18 165/87 165/87 11/20/17 00:20 92 H 18 136/74 11/19/17 23:45 90 18 146/83 11/19/17 23:30 18 11/19/17 23:22 90 18 155/82 11/19/17 23:05 89 18 148/73 11/19/17 22:44 86 18 149/81 11/19/17 22:35 90 18 154/77 11/19/17 22:27 90 18 164/86 11/19/17 22:22 88 18 170/92 11/19/17 22:17 90 18 178/103 11/19/17 22:07 88 166/107 11/19/17 22:05 88 18 166/107 11/19/17 20:15 98.9 F 88 18 160/87 98 11/19/17 19:35 90 18 162/86 11/19/17 18:55 88 18 170/97 100 11/19/17 17:40 90 187/107 11/19/17 17:30 99.0 F 90 18 187/107 100 11/19/17 16:43 90 16 167/106 100 11/19/17 16:28 89 16 161/99 100 11/19/17 16:13 89 16 155/101 100 11/19/17 15:58 88 16 159/94 100 11/19/17 15:53 87 16 162/100 99 11/19/17 15:48 90 16 166/101 99 11/19/17 15:43 90 174/111 174/111 11/19/17 15:25 90 16 175/109 99 11/19/17 15:10 89 16 171/107 99 11/19/17 15:05 89 16 178/110 99 11/19/17 15:01 88 16 174/107 100 11/19/17 14:54 100 H 192/116 11/19/17 14:25 99.5 F 100 H 16 192/116 100 Intake and Output 11/19/17 11/20/17 11/20/17 22:59 06:59 14:59 Intake Total 200 200 Output Total 200 300 Balance 0 -100 Intake: Oral 200 200 Output: Urine 200 300 Void 200 300 Other: Total, Intake Amount 200 200 Total, Output Amount 200 300 Weight 92.86 kg - Labs Labs: Abnormal lab results 11/19/17 11/19/17 11/19/17 Range/Units 16:36 19:11 19:11 Hgb 9.6 L (10.1-14.3) gm/dl MCH 26 L (28-32) pg RDW 17.1 H (13.2-15.2) % Plt Count 445 H (140-440) K/mm3 Seg Neutrophils % 72.3 H (40.0-70.0) % Potassium 3.5 L (3.6-5.0) mmol/L Glucose 170 H (65-100) mg/dL POC Glucose (70-105) Hemoglobin A1c (4-6) % Alkaline Phosphatase 132 H (35-129) units/L Albumin 3.7 L (3.9-5) g/dL Urine WBC (Auto) > 182.0 H (0.0-6.0) /HPF 11/19/17 11/19/17 11/20/17 Range/Units 19:11 20:24 05:07 Hgb (10.1-14.3) gm/dl MCH (28-32) pg RDW (13.2-15.2) % Plt Count (140-440) K/mm3 Seg Neutrophils % (40.0-70.0) % Potassium (3.6-5.0) mmol/L Glucose (65-100) mg/dL POC Glucose 154 H 111 H (70-105) Hemoglobin A1c 6.8 H (4-6) % Alkaline Phosphatase (35-129) units/L Albumin (3.9-5) g/dL Urine WBC (Auto) (0.0-6.0) /HPF
[2017-11-20] MEDS: PROCARDIA XL PO SCH (10:02)
[2017-11-20] MEDS: TRADJENTA PO SCH (10:03)
[2017-11-20] MEDS: WELLBUTRIN PO SCH ×2 (10:03→22:41)
[2017-11-20] MEDS: FIORICET PO PRN ×2 (10:04→17:25)
[2017-11-20] MEDS: HumuLIN R SUB-Q SCH ×3 (11:00→20:44)
[2017-11-21] MEDS: HumuLIN R SUB-Q SCH ×4 (05:24→20:12)
--- NOTE | 2017-11-21 08:14 | Progress Note ---
Assessment and Plan A: HD#3 1) s/p repeat with bilateral salpingectomy at 32 wks on October 30, 2017 secondary to chronic hypertension with superimposed preeclampsia s/p magnesium sulfate for seizure prophylaxis during that hospitalization 2) Headache- much improved 3) Poorly controlled hypertension: Control improved on Labetalol 600 mg BID and Procardia XL 90 mg 4) Diabetes Mellitus 5) Abdominal pain- improving 6) Depression- worsening P: Awaiting urine culture. Begin IV Rocephin for treatment of UTI Hospitalist consult to optimize antihypertensives Mental Health Consult Begin discharge planning Subjective - Subjective Date of service: 11/21/17 Principal diagnosis: Hypertension, headache, Diabetes, Obesity Interval history: Pt reports drastic improvement in headache. Blood pressures currently below severe range. Pt feels that her depression is worsening and asks to speak to a mental health professional. Her abdominal pain is improving, but she reports dysuria. Patient reports: appetite normal, voiding normally, pain well controlled, flatus , bowel movement, ambulating normally Objective - Vital Signs Latest vital signs: Vital Signs Temp Pulse Resp BP BP Pulse Ox 11/21/17 04:05 98.7 F 98 H 18 158/89 11/21/17 00:00 98.7 F 75 16 138/82 11/20/17 22:36 96 H 18 139/82 139/82 11/20/17 19:30 98.7 F 97 H 16 139/79 11/20/17 16:30 98.6 F 100 H 20 139/91 98 11/20/17 11:22 98.5 F 91 H 20 148/85 100 11/20/17 10:01 112/64 11/20/17 08:16 98.3 F 85 20 112/64 97 Intake and Output 11/20/17 11/21/17 11/21/17 22:59 06:59 14:59 Intake Total 740 200 Balance 740 200 Intake: Oral 440 200 Intake, Free Water 300 Other: Total, Intake Amount 200 200 # Voids Void 1 - Exam Breasts: Present: deferred Cardiovascular: Present: Regular rate Lungs: Present: Clear to auscultation Abdomen: Present: soft (obese ), tenderness (appropriately ) Uterus: Present: fundal height below umbilicus Extremities: Present: normal. Absent: edema Incision: Present: intact - Labs Labs: Abnormal lab results 11/20/17 11/20/17 11/20/17 Range/Units 11:34 15:05 20:44 POC Glucose 137 H 129 H 147 H (70-105) 11/21/17 Range/Units 05:16 POC Glucose 154 H (70-105)
[2017-11-21] MEDS: GLUCOPHAGE PO SCH ×2 (08:45→18:15)
[2017-11-21] MEDS: TRADJENTA PO SCH (10:00)
[2017-11-21] MEDS: WELLBUTRIN PO SCH ×2 (10:00→22:18)
[2017-11-21] MEDS: PROCARDIA XL PO SCH (10:00)
[2017-11-21] MEDS ORDERED: ROCEPHIN/NS 1 GM/50 ML 1 GM/50 ML BAG IV SCH (10:00)
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
[2017-11-21] MEDS: FIORICET PO PRN (15:30)
[2017-11-21] MEDS: NORMODYNE PO SCH (15:30)
[2017-11-21] MEDS: cefTRIAXone 1 GM in NACL 0.9% 20 ML IV SCH (19:00)
--- NOTE | 2017-11-21 20:57 | Consultation ---
History of Present Illness - Reason for Consult Consult date: 11/21/17 management of hypertension Requesting physician: JARAD DURAN - History of Present Illness Patient is a 24-year-old lady with a history of hypertension and diabetes mellitus status post section on 10/30/2017, presented to her [facility] office for persistent headache. No nausea vomiting. Was directly admitted. CT scan was unremarkable for any acute event. Patient needs to be compliant with medication. Denies any polyuria polydipsia polyphagia. On admission to the hospital and was seen was 6.8%. The patient was admitted 200s. Patient was commenced on labetalol nifedipine. The patient to be appreciably controlled currently within the 130s. Patient denies any more headaches. No orthopnea or paroxysmal nocturnal dyspnea. Blood sugar in the 150s with insulin. Past History Past Medical History: diabetes, hypertension Past Surgical History: Social history: no significant social history Medications and Allergies Allergies Allergy/AdvReac Type Severity Reaction Status Date / Time No Known Allergies Allergy Verified 05/13/14 23:02 Home Medications Medication Instructions Recorded Confirmed Last Taken Type Insulin NPH Human Isophane 86 units SQ BID 09/21/17 11/19/17 10/05/17 22:00 History [Novolin N] 86 Labetalol [Normodyne] 200 mg PO TID 09/21/17 11/19/17 10/06/17 13:40 History Vit No.130/Iron/Folic 1 tab PO DAILY 09/21/17 11/19/17 11/19/17 09:00 History [ Tablet] buPROPion [Wellbutrin] 100 mg PO DAILY 09/21/17 11/19/17 10/05/17 12:00 History NIFEdipine XL [Procardia Xl] 90 mg PO QDAY #30 tablet 09/30/17 11/19/17 09:00 Rx Clindamycin [Clindamycin CAP] 300 mg PO Q6H #28 capsule 11/03/17 11/19/17 Unknown Rx Fluconazole [Diflucan] 150 mg PO Q72H #3 tablet 11/03/17 11/19/17 Unknown Rx Ibuprofen [Motrin] 800 mg PO Q8HR PRN #30 tablet 11/03/17 11/19/17 11/18/17 21: 00 Rx Labetalol [Normodyne TAB] 400 mg PO BID #120 tablet 11/03/17 11/19/17 11/19/17 09:00 Rx NIFEdipine XL [Procardia Xl] 90 mg PO QDAY #30 tablet 11/03/17 11/19/17 09:00 Rx Sitagliptin Phos/Metformin HCl 1 tab PO BID #60 tablet 11/03/17 11/19/17 09:00 Rx [Janumet 50-1,000 mg] buPROPion [Wellbutrin] 100 mg PO BID #60 tab 11/03/17 11/19/17 11/18/17 22:00 Rx oxyCODONE /ACETAMINOPHEN [Percocet 1 tab PO Q6HR PRN #40 tablet 11/03/17 Unknown Rx 5/325] Active Meds: Active Medications Acetaminophen/Butalbital/Caffeine (Fioricet) 2 tab PO Q4H PRN PRN Reason: Headache Last Admin: 11/21/17 15:30 Dose: 2 tab Bupropion HCl (Wellbutrin) 150 mg PO BID [facility] Last Admin: 11/21/17 10:00 Dose: 150 mg Dextrose (D50w (25gm) Syringe) 50 ml IV PRN PRN PRN Reason: Hypoglycemia Hydralazine HCl (Apresoline) 5 mg IV Q30MIN PRN PRN Reason: Hypertension Last Admin: 11/19/17 22:07 Dose: 5 mg Hydromorphone HCl (Dilaudid) 0.25 mg IV Q3H PRN PRN Reason: Pain, Moderate (4-6) Ceftriaxone Sodium 1 gm/ (Sodium Chloride) 20 mls @ 2 mls/min IV Q24HR [facility] Last Admin: 11/21/17 19:00 Dose: 2 mls/min Ibuprofen (Motrin) 800 mg PO Q6H PRN PRN Reason: Pain, Mild (1-3) Last Admin: 11/19/17 17:40 Dose: 800 mg Insulin Human Regular (Humulin R) 0 units SUB-Q [facility]; Protocol Last Admin: 11/21/17 20:12 Dose: 3 units Labetalol HCl (Normodyne) 600 mg PO BID [facility] Last Admin: 11/21/17 15:30 Dose: 600 mg Linagliptin (Tradjenta) 5 mg PO QDAY [facility] Last Admin: 11/21/17 10:00 Dose: 5 mg Metformin HCl (Glucophage) 1,000 mg PO BIDDIAB [facility] Last Admin: 11/21/17 18:15 Dose: 1,000 mg Multi-Ingredient Ointment (Lansinoh) 1 applic TP PRN PRN PRN Reason: dryness/cracking Naloxone HCl (Narcan 0.4 Mg/1 Ml) 0.1 mg IV Q2MIN PRN PRN Reason: Res Rate </= 8 or 02 SAT < 92% Nifedipine (Procardia Xl) 90 mg PO QDAY [facility] Last Admin: 11/21/17 10:00 Dose: 90 mg Ondansetron HCl (Zofran) 4 mg IV Q8H PRN PRN Reason: Nausea And Vomiting Oxycodone/Acetaminophen (Percocet 5/325) 1 tab PO Q6H PRN PRN Reason: Pain, Moderate (4-6) Last Admin: 11/19/17 23:30 Dose: 1 tab Simethicone (Mylicon) 80 mg PO Q6H PRN PRN Reason: Gas pain Witch Livia/Glycerin (Tucks Pad) 1 each TP PRN PRN PRN Reason: Hemorrhoids/cleansing/soothing Review of systems Constitutional: Well Nouridhed and Well developed. Head: NC/ AT Eyes: Denies any visual impairments. No discharge from the eyes Nose: Denies any rhinorrhea or epistaxis Throats: Denies any post nasal drainage. Ears: Denies any hearing deficits Cardiovascular system: Denies any chest pain, shortness of breath, orthopnea, paroxysmal nocturnal dyspnea, or palpitation. Respiratory system: Denies any cough, difficulty breathing, wheezing, pleuritic chest pain, Gastrointestinal system: Denies any abdominal pain, nausea vomiting, hematemesis or melena. Neurological system: Denies any headache, slurred speech, facial droop, lateralizing weakness Genitalia system: Denies any dysuria, urinary frequency or urgency, urethral discharge Skin: No rashes, hyperpigmented spots. Hematological: Denies any cervical tenderness hemorrhages or petechia. Immunological: Denies any multiple septic spots, Lymphatic: Denies any generalized lymphadenopathy. Endocrine: Denies any polyuria, polydipsia, polyphagia. No heat or cold intolerance. Musculoskeletal system: No joint pain or swelling. Psych: No visual, tactile, auditory or hallucination Exam - Physical Exam Narrative exam: Constitutional: Well-nourished well-developed. In no distress Head: Normocephalic atraumatic Eyes: Pupils are equal round and reactive to light Nose: No enlarged turbinates, no septal deviation. Mouth: Moist mucous membranes. Neck: Supple no thyromegaly. No bruit. No JVD Heart: Regular rate and rhythm, S1-S2 abnormal. No rubs murmurs or gallop Lungs: Clear to auscultation bilaterally no rales or rhonchi Abdomen: Soft, nontender. Bowel sound are present. Extremities: No edema no cyanosis and no clubbing. Neuro: Alert oriented Oriented x3. No focal sensory or motor deficit. Skin: No rashes no hyperemic spots Psychiatry: Euthymic. Calm. - Constitutional Vitals: Temp Pulse Resp BP Pulse Ox 98.9 F 100 H 18 148/92 98 11/21/17 16:00 11/21/17 16:00 11/21/17 16:00 11/21/17 16:00 11/20/17 16:30 Results - Labs CBC & Chem 7: 11/19/17 19:11 11/19/17 19:11 Labs: Abnormal lab results 11/21/17 11/21/17 11/21/17 Range/Units 05:16 11:49 15:30 POC Glucose 154 H 110 H 137 H (70-105) 11/21/17 Range/Units 19:54 POC Glucose 157 H (70-105) Assessment and Plan - Stage II hypertension Continue with labetalol 600 mg 1 by mouth twice a day and nifedipine 90 mg daily Consider addition of hydralazine 100 mg twice a day if any further elevation in blood pressure is noted. Renal ultrasound as well as for a cardiac evaluation would be indicated - T2DM A1c was 6.8% Continue sliding scale insulin and consistent, carbohydrates diet. Thanks for this consult. We'll continue to follow this patient with you
[2017-11-22] MEDS: NORMODYNE PO SCH ×2 (02:57→13:47)
[2017-11-22 04:21] LABS: Basophils % (Auto) 0.6 % (0.0-1.8); Eosinophils # (Auto) 0.1 K/mm3 (0.0-0.4); Eosinophils % (Auto) 0.8 % (0.0-4.3); Hematocrit 30.2 % (30.3-42.9); Hemoglobin 9.5 gm/dl (10.1-14.3); Lymphocytes # (Auto) 1.4 K/mm3 (1.2-5.4); Lymphocytes % (Auto) 16.4 % (13.4-35.0); Mean Corpuscular HGB Conc 31 % (30-34); Mean Corpuscular Hemoglobin 26 pg (28-32); Mean Corpuscular Volume 83 fl (79-97); Monocytes # (Auto) 0.6 K/mm3 (0.0-0.8); Platelet Count 382 K/mm3 (140-440); Red Blood Count 3.63 M/mm3 (3.65-5.03); Red Cell Distribution Width 17.4 % (13.2-15.2)
[2017-11-22 04:52] LABS: Alanine Aminotransferase 20 units/L (7-56); Albumin 3.6 g/dL (3.9-5); BUN/Creatinine Ratio 18; Blood Urea Nitrogen 14 mg/dL (7-17); Calcium 8.5 mg/dL (8.4-10.2); Hemolysis Index 0
--- NOTE | 2017-11-22 06:49 | Ultrasound Report ---
FINAL REPORT EXAM: US RENAL BILAT HISTORY: Hypertension COMPARISONS: None. FINDINGS: Grayscale and color Doppler ultrasound evaluation of the kidneys. Partially imaged liver is poorly visualized due to limited acoustic window. Hypoechoic masslike area in the right hepatic lobe may be artifactual as it is bordered by shadowing from the ribs. The right kidney measures up to 12.1 cm and contains several anechoic simple appearing cysts measuring up to 13 millimeters in greatest dimension. No hydronephrosis or echogenic shadowing foci to suggest nephrolithiasis. No abdominal ascites or free fluid in Morison's pouch. The left kidney measures up to 11.5 cm in length and contains a anechoic simple appearing interpolar cyst measuring up to 16 millimeters. Incompletely evaluated urinary bladder is grossly unremarkable. IMPRESSION: No hydronephrosis. The liver is not well visualized. Question hypoechoic masslike area in the right hepatic lobe that is probably bordered by posterior shadowing from the ribs. Follow-up noncontrast MRI (if patient is currently ) versus contrast-enhanced CT is suggested for better characterisation.
[2017-11-22] MEDS: GLUCOPHAGE PO SCH ×2 (09:27→17:43)
[2017-11-22] MEDS: WELLBUTRIN PO SCH ×2 (10:58→21:56)
[2017-11-22] MEDS: TRADJENTA PO SCH (10:59)
[2017-11-22] MEDS: PROCARDIA XL PO SCH (11:08)
--- NOTE | 2017-11-22 12:29 | Progress Note ---
Assessment and Plan A: HD#5 1) s/p repeat with bilateral salpingectomy at 32 wks on October 30, 2017 secondary to chronic hypertension with superimposed preeclampsia s/p magnesium sulfate for seizure prophylaxis during that hospitalization 2) Headache- much improved 3) Poorly controlled hypertension: Control improved on Labetalol 600 mg BID and Procardia XL 90 mg , seen by Internal med recommneded hydralazine 4) Diabetes Mellitus controlled 5) Depression- seen by psych P: Await recommnedations by Internal meds will continue our current plan ct pelvis and abd: seen area on liver for further eval of renal US Subjective - Subjective Date of service: 11/22/17 Principal diagnosis: Hypertension, headache, Diabetes, Obesity Patient reports: appetite normal, voiding normally, pain well controlled, flatus , ambulating normally Objective - Vital Signs Latest vital signs: Vital Signs Temp Pulse Resp BP BP 11/22/17 11:00 138/82 11/22/17 07:45 98.0 F 93 H 18 141/71 11/22/17 04:30 98.6 F 81 18 101/80 11/22/17 02:57 94 H 135/92 11/22/17 00:10 98.4 F 91 H 18 144/80 11/21/17 19:00 98.6 F 74 16 121/69 11/21/17 16:00 98.9 F 100 H 18 148/92 11/21/17 15:30 159/91 Intake and Output 11/21/17 11/22/17 11/22/17 23:59 07:59 15:59 Intake Total 240 Balance 240 Intake: Oral 240 Other: Total, Intake Amount 240 # Voids Void 1 - Exam Breasts: Present: normal Cardiovascular: Present: Regular rate, Normal S1 Lungs: Present: Clear to auscultation, Normal air movement Abdomen: Present: normal appearance, soft, normal bowel sounds. Absent: distention, tenderness, guarding Vulva: both: normal Uterus: Present: normal, firm, fundal height below umbilicus. Absent: bogginess , tenderness Extremities: Present: normal Deep Tendon Reflex Grade: Normal +2 Incision: Present: normal, dry, intact - Labs Labs: Abnormal lab results 11/21/17 11/21/17 11/22/17 Range/Units 15:30 19:54 03:52 RBC 3.63 L (3.65-5.03) M/mm3 Hgb 9.5 L (10.1-14.3) gm/dl Hct 30.2 L (30.3-42.9) % MCH 26 L (28-32) pg RDW 17.4 H (13.2-15.2) % Seg Neutrophils % 75.2 H (40.0-70.0) % Glucose (65-100) mg/dL POC Glucose 137 H 157 H (70-105) Albumin (3.9-5) g/dL 11/22/17 Range/Units 03:52 RBC (3.65-5.03) M/mm3 Hgb (10.1-14.3) gm/dl Hct (30.3-42.9) % MCH (28-32) pg RDW (13.2-15.2) % Seg Neutrophils % (40.0-70.0) % Glucose 101 H (65-100) mg/dL POC Glucose (70-105) Albumin 3.6 L (3.9-5) g/dL
--- NOTE | 2017-11-22 16:37 | Cat Scan Report ---
FINAL REPORT EXAM: CT ABDOMEN PELVIS W CON HISTORY: f/u from renal US TECHNIQUE: CT of the abdomen and pelvis was performed after the administration of intravenous contrast. Subsequently, CT of the abdomen and pelvis was performed in the delayed phase. Reconstructions were included in the coronal and sagittal planes. PRIORS: Renal ultrasound from 11/22/2017. FINDINGS: Lower thorax: Mild bibasilar atelectasis is seen. The visualized portions of the heart are normal. Liver: The liver is normal in attenuation. No intrahepatic biliary duct dilation. A large hypoattenuating lesion with peripheral nodular contrast enhancement with progressive fill-in is seen in the posterior aspect of the right hepatic lobe measuring 11.9 x 7.3 centimeters. A similar appearing lesion is seen in the inferior aspect of the left hepatic lobe measuring 4.9 x 3.1 centimeters. A tiny low-attenuation lesion is seen in the superior aspect of the left hepatic lobe which is too small to characterize but likely represents a small cyst. Gallbladder/ biliary system: The gallbladder is collapsed and not well evaluated. No evidence of acute cholecystitis. The common bile duct appears nondilated. Spleen: No splenic lesions are seen. Pancreas: No pancreatic lesions are seen. No pancreatic duct dilation. Kidneys: Two nonobstructing right renal calculi are seen. The largest is present in the inferior pole measuring 4 millimeters. A nonobstructing left inferior pole renal calculus is seen measuring 3 millimeters. No hydronephrosis is seen on either side. No renal lesions. No ureteral calculi. No ureteral filling defects. Adrenal glands: No adrenal masses. Vasculature: The abdominal and pelvic vasculature is patent without variant anatomy. Lymph nodes: No enlarged lymph nodes are seen in the abdomen or pelvis. Bowel, mesentery, peritoneum: No bowel obstruction. No free fluid or free air. The appendix is normal. No colonic diverticulosis. No bowel wall thickening. Urinary bladder: The urinary bladder is collapsed and not well evaluated. Pelvis: appearance of the uterus is noted. Abdominal wall: No abdominal wall hernia or other subcutaneous findings. Bones: No acute or chronic osseous finding. IMPRESSION: 1. Two dominant hepatic lesions most likely represent hemangiomata. 2. Tiny low-attenuation left hepatic lesion is too small to characterize but likely represents a small cyst. 3. Bilateral nonobstructing nephrolithiasis.
--- NOTE | 2017-11-22 17:37 | Event Note ---
Date: 11/22/17 spoke with Internal meds consult and recommneded for discharge with f/u in 1 week
--- NOTE | 2017-11-22 18:05 | Event Note ---
Date: 11/22/[address] scan and shows hemangioma of liver. GI consult placed for tomorrow. Patient desires to stay until tomorrow am. will continue with current antihypertensive. After eval tomorrow should be fine to go home with f/u early next week for BP check
[2017-11-22] MEDS: cefTRIAXone 1 GM in NACL 0.9% 20 ML IV SCH (18:38)
[2017-11-22] MEDS: FIORICET PO PRN (18:45)
[2017-11-22] MEDS: HumuLIN R SUB-Q SCH (20:50)
[2017-11-22] MEDS: PERCOCET 5/325 PO PRN (21:56)
--- NOTE | 2017-11-22 23:39 | Progress Note ---
Assessment and Plan Assessment and plan: Patient is a 24-year-old lady with a history of hypertension and diabetes mellitus status post section on 10/30/2017, presented to her [facility] s office for persistent headache. No nausea vomiting. Was directly admitted. CT scan was unremarkable for any acute event. Patient needs to be compliant with medication. Denies any polyuria polydipsia polyphagia. On admission to the hospital and was seen was 6.8%. The patient was admitted 200s. Patient was commenced on labetalol nifedipine. The patient to be appreciably controlled currently within the 130s. Patient denies any more headaches. No orthopnea or paroxysmal nocturnal dyspnea. Blood sugar in the 150s with insulin. Hypertensive Urgency * Continue with labetalol 600 mg 1 by mouth twice a day and nifedipine 90 mg daily * Counselling provided to the patient. * Encouraged to keep a BP Diary T2DM * A1c was 6.8% * Continue sliding scale insulin and consistent, carbohydrates diet. Abdnormal Liver Mass * Awaiting CT scan Discussed with Dr Yoder. Thanks for this consult. We'll continue to follow this patient with you History Interval history: Patient seen and examined, in no acute distress. Resting comfortably Hospitalist Physical - Physical exam Narrative exam: VITAL SIGNS: Reviewed. GENERAL: The patient appeared well nourished and normally developed. Vital signs as documented. HEAD: No signs of head trauma. EYES: Pupils are equal. Extraocular motions intact. EARS: Hearing grossly intact. MOUTH: Oropharynx is normal. NECK: No adenopathy, no JVD. CHEST: Chest with clear breath sounds bilaterally. No wheezes, rales, or rhonchi. CARDIAC: Regular rate and rhythm. S1 and S2, without murmurs, gallops, or rubs. VASCULAR: No Edema. Peripheral pulses normal and equal in all extremities. ABDOMEN: Soft, without detectable tenderness. No sign of distention. No rebound or guarding, and no masses palpated. Bowel Sounds normal. MUSCULOSKELETAL: Good range of motion of all major joints. Extremities without clubbing, cyanosis or edema. NEUROLOGIC EXAM: Alert and oriented x 3. No focal sensory or strength deficits. Speech normal. Follows commands. PSYCHIATRIC: Mood normal. SKIN: No rash or lesions. - Constitutional Vitals: Temp Pulse Resp BP Pulse Ox 98.9 F 90 18 153/90 100 11/22/17 21:10 11/22/17 21:10 11/22/17 21:56 11/22/17 21:10 11/22/17 21:10 Results - Labs CBC & Chem 7: 11/22/17 03:52 11/22/17 03:52 Labs: Laboratory Last Values WBC 8.8 K/mm3 (4.5-11.0) 11/22/17 03:52 RBC 3.63 M/mm3 (3.65-5.03) L 11/22/17 03:52 Hgb 9.5 gm/dl (10.1-14.3) L 11/22/17 03:52 Hct 30.2 % (30.3-42.9) L 11/22/17 03:52 MCV 83 fl (79-97) 11/22/17 03:52 MCH 26 pg (28-32) L 11/22/17 03:52 MCHC 31 % (30-34) 11/22/17 03:52 RDW 17.4 % (13.2-15.2) H 11/22/17 03:52 Plt Count 382 K/mm3 (140-440) 11/22/17 03:52 Lymph % (Auto) 16.4 % (13.4-35.0) 11/22/17 03:52 [place] % (Auto) 7.0 % (0.0-7.3) 11/22/17 03:52 Eos % (Auto) 0.8 % (0.0-4.3) 11/22/17 03:52 Baso % (Auto) 0.6 % (0.0-1.8) 11/22/17 03:52 Lymph # 1.4 K/mm3 (1.2-5.4) 11/22/17 03:52 [place] # 0.6 K/mm3 (0.0-0.8) 11/22/17 03:52 Eos # 0.1 K/mm3 (0.0-0.4) 11/22/17 03:52 Baso # 0.0 K/mm3 (0.0-0.1) 11/22/17 03:52 Seg Neutrophils % 75.2 % (40.0-70.0) H 11/22/17 03:52 Seg Neutrophils # 6.7 K/mm3 (1.8-7.7) 11/22/17 03:52 Sodium 141 mmol/L (137-145) 11/22/17 03:52 Potassium 3.9 mmol/L (3.6-5.0) 11/22/17 03:52 Chloride 104.9 mmol/L (98-107) 11/22/17 03:52 Carbon Dioxide 23 mmol/L (22-30) 11/22/17 03:52 Anion Gap 17 mmol/L 11/22/17 03:52 BUN 14 mg/dL (7-17) 11/22/17 03:52 Creatinine 0.8 mg/dL (0.7-1.2) 11/22/17 03:52 Estimated GFR > 60 ml/min 11/22/17 03:52 BUN/Creatinine Ratio 18 % 11/22/17 03:52 Glucose 101 mg/dL (65-100) H 11/22/17 03:52 POC Glucose 106 (70-105) H 11/22/17 21:06 Hemoglobin A1c 6.8 % (4-6) H 11/19/17 19:11 Calcium 8.5 mg/dL (8.4-10.2) 11/22/17 03:52 Total Bilirubin < 0.20 mg/dL (0.1-1.2) 11/22/17 03:52 AST 13 units/L (5-40) 11/22/17 03:52 ALT 20 units/L (7-56) 11/22/17 03:52 Alkaline Phosphatase 123 units/L (35-129) 11/22/17 03:52 Total Protein 6.3 g/dL (6.3-8.2) 11/22/17 03:52 Albumin 3.6 g/dL (3.9-5) L 11/22/17 03:52 Albumin/Globulin Ratio 1.3 % 11/22/17 03:52 Urine Color Red (Yellow) 11/19/17 16:36 Urine Turbidity Turbid (Clear) 11/19/17 16:36 Urine pH 6.0 (5.0-7.0) 11/19/17 16:36 Ur Specific [place] 1.028 (1.003-1.030) 11/19/17 16:36 Urine Protein 100 mg/dl mg/dL (Negative) 11/19/17 16:36 Urine Glucose (UA) 50 mg/dL (Negative) 11/19/17 16:36 Urine Ketones Tr mg/dL (Negative) 11/19/17 16:36 Urine Blood Lg (Negative) 11/19/17 16:36 Urine Nitrite Neg (Negative) 11/19/17 16:36 Urine Bilirubin Neg (Negative) 11/19/17 16:36 Urine Urobilinogen < 2.0 mg/dL (<2.0) 11/19/17 16:36 Ur Leukocyte Esterase Mod (Negative) 11/19/17 16:36 Urine WBC (Auto) > 182.0 /HPF (0.0-6.0) H 11/19/17 16:36 Urine RBC (Auto) > 182.0 /HPF (0.0-6.0) 11/19/17 16:36 Urine Bacteria (Auto) 1+ /HPF (Negative) 11/19/17 16:36
[2017-11-23] MEDS: NORMODYNE PO SCH ×2 (02:04→13:39)
--- NOTE | 2017-11-23 08:08 | Progress Note ---
Assessment and Plan A: HD#5 1) s/p repeat with bilateral salpingectomy at 32 wks on October 30, 2017 secondary to chronic hypertension with superimposed preeclampsia s/p magnesium sulfate for seizure prophylaxis during that hospitalization 2) Headache- much improved 3) Poorly controlled hypertension: Control improved on Labetalol 600 mg BID and Procardia XL 90 mg 4) Diabetes Mellitus - on Janumet 5) Abdominal pain- resolved 6) Depression- worsening 7) Liver mass on CT scan P: GI consult pending Pt able to be discharged after GI evaluation Subjective - Subjective Date of service: 11/23/17 Principal diagnosis: Hypertension, headache, Diabetes, Obesity Interval history: No overnight events Patient reports: appetite normal, voiding normally, pain well controlled, ambulating normally Objective - Vital Signs Latest vital signs: Vital Signs Temp Pulse Resp BP BP Pulse Ox 11/23/17 05:50 93 H 18 153/89 11/23/17 04:50 98.7 F 87 20 165/91 99 11/23/17 02:04 91 H 151/91 11/23/17 00:07 98.5 F 98 H 20 153/91 98 11/22/17 21:56 18 11/22/17 21:10 98.9 F 90 20 153/90 100 11/22/17 18:45 18 11/22/17 16:30 98.6 F 98 H 18 147/79 11/22/17 13:47 82 140/80 11/22/17 12:00 98.3 F 115 H 18 147/96 11/22/17 11:00 138/82 Intake and Output 11/22/17 11/23/17 11/23/17 22:59 06:59 14:59 Intake Total 440 440 Balance 440 440 Intake: Oral 440 440 Other: Total, Intake Amount 200 240 Voiding Method Toilet # Voids Void 1 1 - Exam Breasts: Present: deferred Cardiovascular: Present: Regular rate Lungs: Present: Clear to auscultation Abdomen: Present: soft (obese ) Extremities: Present: normal Incision: Present: intact - Labs Labs: Abnormal lab results 11/22/17 11/22/17 Range/Units 14:38 21:06 POC Glucose 122 H 106 H (70-105)
[2017-11-23] MEDS: GLUCOPHAGE PO SCH (08:19)
--- NOTE | 2017-11-23 08:20 | Discharge Summary ---
Providers - Providers Date of Admission: 11/19/17 13:43 Date of discharge: 11/23/17 Attending physician: LEAH NUÑEZ 11/19/17 13:45 Consult to Dietary Aide [CONS] Routine Reason For Exam: delivered 10/18; decreased milk output 11/21/17 08:07 Consult to Mental Health [CONS] Routine Reason For Exam: depression, taking welbutrin, worsening symptoms Place consult to:: On-call provider Notified:: Selene Phone number called:: [phone] Was contact made?: Yes If yes, spoke with:: Selene Time called:: 08:21 Comment:: will follow up 11/21/17 08:09 Consult to Physician [CONS] Routine Comment: Consulting Provider: ELFEGO GAMBLE Physician Instructions: Reason For Exam: Hypertension, Diabetes: optimize med regimen 11/22/17 18:00 Consult to Physician [CONS] Routine Comment: Consulting Provider: VIDYA CARRILLO Physician Instructions: Reason For Exam: Heamgiomata on liver 11/22/17 18:27 Consult to Physician [CONS] Routine Comment: Consulting Provider: BULL CARRILLO Physician Instructions: Reason For Exam: hemangioma of liver Primary care physician: LEAH NUÑEZ Hospitalization Reason for admission: other (hypertensive urgency ) Hospital course: This patient was admitted from the office with hypertensive urgency and headache. She received IV antihypertensives and oral anti-hypertensives during her hospitalization to achieve blood pressures 120s to 140s over 60s to 80s. During her hospitalization she also received an internal medicine consultation who agreed with her medication regimen and recommended a renal ultrasound secondary to her hypertension. Renal ultrasound was within normal limits however a liver mass was identified with Recommendation for CT scan for further evaluation. A CT scan of the abdomen was obtained and a GI consult was placed for follow-up of this mass. By hospital day #5 the patient met discharge criteria. She will follow-up in the office next week for blood pressure check. Condition at discharge: Stable Disposition: - TO HOME OR SELFCARE - Discharge Diagnoses (1) Hypertensive urgency Status: Acute (2) Headache Status: Acute Qualifiers: Headache type: unspecified Headache chronicity pattern: unspecified pattern Intractability: not intractable Qualified Code(s): R51 - Headache (3) Diabetes Status: Acute Qualifiers: Diabetes mellitus type: type 2 Diabetes mellitus usp insulin use: without usp use Diabetes mellitus complication status: with unspecified complications Qualified Code(s): E11.8 - Type 2 diabetes mellitus with unspecified complications (4) Chronic hypertension Status: Acute (5) Obesity (BMI 30-39.9) Status: Acute Plan - Discharge Medications Prescriptions: Labetalol [Normodyne TAB] 600 mg PO BID #60 tablet - Provider Discharge Summary Activity: routine Diet: routine Instructions: routine Additional instructions: [] Smoking cessation referral if applicable(refer to patient education folder for contact #) [] Refer to [facility]'s [facility] Booklet Call your doctor immediately for: * Fever > 100.5 * Heavy vaginal bleeding ( >1 pad per hour) * Severe persistent headache * Shortness of breath * Reddened, hot, painful area to leg or breast * Drainage or odor from incision. * Keep incision clean and dry at all times and follow doctor's instructions regarding bathing/showering - Follow up plan Follow up: LEAH NUÑEZ MD [Primary Care Provider] - 7 Days
[2017-11-23] MEDS: WELLBUTRIN PO SCH (10:17)
[2017-11-23] MEDS: TRADJENTA PO SCH (10:18)
[2017-11-23] MEDS: PROCARDIA XL PO SCH (10:18)
[2017-11-23] MEDS: HumuLIN R SUB-Q SCH (10:41)
--- NOTE | 2017-11-23 11:32 | Gastroenterology Consultation ---
<DALI PEREZ - Last Filed: 11/23/17 11:38> History of Present Illness - Reason for Consult Consult date: 11/23/17 hemangioma of liver Requesting physician: GRANT FERNANDO - History of Present Illness Patient is a 37 y/o female () with PMH of HTN, DM, obesity, and depression who was admitted with hypertensive urgency with MURRELL from [facility] office and is s/p repeat with bilateral salpingectomy at 32 wks 2/2 chronic hypertension with superimposed preeclampsia. She underwent a renal ultrasound due to her hypertension during this hospitalization that revealed a liver mass. She was further evaluated with an abd CT scan that showed a small hepatic cyst and 2 dominant hepatic lesions that most likely represent hemangiomata to which GI has been consulted. This morning she was resting in bed w/o acute distress. Admits to some incisional soreness but denies abd pain, N/V, jaundice, itching, signs of bleeding, or LGI symptoms. Reports no history or Fhx of liver disease. No IV drug use or ETOH abuse. 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 ) , section (10/30/17)) Social history: denies: smoking, alcohol abuse Family history: diabetes, hypertension Medications and Allergies Allergies Allergy/AdvReac Type Severity Reaction Status Date / Time No Known Allergies Allergy Verified 05/13/14 23:02 Home Medications Medication Instructions Recorded Confirmed Last Taken Type Insulin NPH Human Isophane 86 units SQ BID 09/21/17 11/19/17 10/05/17 22:00 History [Novolin N] 86 Vit No.130/Iron/Folic 1 tab PO DAILY 09/21/17 11/19/17 11/19/17 09:00 History [ Tablet] buPROPion [Wellbutrin] 100 mg PO DAILY 09/21/17 11/19/17 10/05/17 12:00 History NIFEdipine XL [Procardia Xl] 90 mg PO QDAY #30 tablet 09/30/17 11/19/17 09:00 Rx Clindamycin [Clindamycin CAP] 300 mg PO Q6H #28 capsule 11/03/17 11/19/17 Unknown Rx Fluconazole [Diflucan] 150 mg PO Q72H #3 tablet 11/03/17 11/19/17 Unknown Rx Ibuprofen [Motrin] 800 mg PO Q8HR PRN #30 tablet 11/03/17 11/19/17 11/18/17 21: 00 Rx Sitagliptin Phos/Metformin HCl 1 tab PO BID #60 tablet 11/03/17 11/19/17 09:00 Rx [Janumet 50-1,000 mg] buPROPion [Wellbutrin] 100 mg PO BID #60 tab 11/03/17 11/19/17 11/18/17 22:00 Rx oxyCODONE /ACETAMINOPHEN [Percocet 1 tab PO Q6HR PRN #40 tablet 11/03/17 Unknown Rx 5/325] Labetalol [Normodyne TAB] 600 mg PO BID #60 tablet 11/22/17 Unknown Rx Butalb/Acetamin/Caff 50-325-40 1 tab PO Q6HR PRN #30 tab 11/23/17 Unknown Rx [Fioricet] Fluconazole [Diflucan] 150 mg PO Q72H #3 tablet 11/23/17 Unknown Rx Labetalol HCl 600 mg PO BID #120 tablet 11/23/17 Unknown Rx Nitrofurantoin Monohyd/M-Cryst 100 mg PO BID #14 capsule 11/23/17 Unknown Rx [Macrobid 100 mg Capsule] Sitagliptin Phos/Metformin HCl 1 tab PO BID #60 tablet 11/23/17 Unknown Rx [Janumet 50-1,000 mg] Active Meds: Active Medications Acetaminophen/Butalbital/Caffeine (Fioricet) 2 tab PO Q4H PRN PRN Reason: Headache Last Admin: 11/22/17 18:45 Dose: 2 tab Bupropion HCl (Wellbutrin) 150 mg PO BID FREDY Last Admin: 11/23/17 10:17 Dose: 150 mg Dextrose (D50w (25gm) Syringe) 50 ml IV PRN PRN PRN Reason: Hypoglycemia Hydralazine HCl (Apresoline) 5 mg IV Q30MIN PRN PRN Reason: Hypertension Last Admin: 11/19/17 22:07 Dose: 5 mg Hydromorphone HCl (Dilaudid) 0.25 mg IV Q3H PRN PRN Reason: Pain, Moderate (4-6) Ceftriaxone Sodium 1 gm/ (Sodium Chloride) 20 mls @ 2 mls/min IV Q24HR [facility] Last Admin: 11/22/17 18:38 Dose: 2 mls/min Ibuprofen (Motrin) 800 mg PO Q6H PRN PRN Reason: Pain, Mild (1-3) Last Admin: 11/19/17 17:40 Dose: 800 mg Insulin Human Regular (Humulin R) 0 units SUB-Q PC [facility]; Protocol Last Admin: 11/23/17 10:41 Dose: Not Given Labetalol HCl (Normodyne) 600 mg PO BID [facility] Last Admin: 11/23/17 02:04 Dose: 600 mg Linagliptin (Tradjenta) 5 mg PO QDAY [facility] Last Admin: 11/23/17 10:18 Dose: 5 mg Metformin HCl (Glucophage) 1,000 mg PO BIDDIAB [facility] Last Admin: 11/23/17 08:19 Dose: 1,000 mg Multi-Ingredient Ointment (Lansinoh) 1 applic TP PRN PRN PRN Reason: dryness/cracking Naloxone HCl (Narcan 0.4 Mg/1 Ml) 0.1 mg IV Q2MIN PRN PRN Reason: Res Rate </= 8 or 02 SAT < 92% Nifedipine (Procardia Xl) 90 mg PO QDAY [facility] Last Admin: 11/23/17 10:18 Dose: 90 mg Ondansetron HCl (Zofran) 4 mg IV Q8H PRN PRN Reason: Nausea And Vomiting Oxycodone/Acetaminophen (Percocet 5/325) 1 tab PO Q6H PRN PRN Reason: Pain, Moderate (4-6) Last Admin: 11/22/17 21:56 Dose: 1 tab Simethicone (Mylicon) 80 mg PO Q6H PRN PRN Reason: Gas pain Witch Livia/Glycerin (Tucks Pad) 1 each TP PRN PRN PRN Reason: Hemorrhoids/cleansing/soothing Review of Systems - Review of Systems All systems: negative Gastrointestinal: other (incisional soreness) Exam - Constitutional Vital Signs: Temp Pulse Resp BP Pulse Ox 98.7 F 93 H 16 131/82 99 11/23/17 07:30 11/23/17 07:30 11/23/17 07:30 11/23/17 07:30 11/23/17 04:50 General appearance: no acute distress, obese - Respiratory Respiratory: bilateral: CTA - Cardiovascular Rhythm: regular Heart Sounds: Present: S1 & S2 - Gastrointestinal General gastrointestinal: Present: soft, non-tender (slight TTP over incision site), non-distended, normal bowel sounds - Integumentary Integumentary: Present: warm, dry - Neurologic Neurological: alert and oriented x3 - Labs CBC & Chem 7: 11/22/17 03:52 11/22/17 03:52 Lab Results: Laboratory Results - last 24 hr 11/22/17 11/22/17 11/22/17 12:17 14:38 21:06 POC Glucose 91 122 H 106 H 11/23/17 10:24 POC Glucose 108 H Assessment and Plan 1.hemangioma of liver -renal U/S revealed liver mass -abd CT showed a small hepatic cyst and 2 dominant hepatic lesions which most likely represent hemangiomata -LFTs-normal -clinically patient is asymptomatic w/o GI complaints -recommend repeat imaging in 6 months, but no further workup needed at this time -patient is okay to be d/c her GI standpoint with outpatient follow up -will sign off, please call if needed <BULL CARRILLO - Last Filed: 11/23/17 16:25> Medications and Allergies Active Meds: Active Medications Acetaminophen/Butalbital/Caffeine (Fioricet) 2 tab PO Q4H PRN PRN Reason: Headache Last Admin: 11/22/17 18:45 Dose: 2 tab Bupropion HCl (Wellbutrin) 150 mg PO BID FREDY Last Admin: 11/23/17 10:17 Dose: 150 mg Dextrose (D50w (25gm) Syringe) 50 ml IV PRN PRN PRN Reason: Hypoglycemia Hydralazine HCl (Apresoline) 5 mg IV Q30MIN PRN PRN Reason: Hypertension Last Admin: 11/19/17 22:07 Dose: 5 mg Hydromorphone HCl (Dilaudid) 0.25 mg IV Q3H PRN PRN Reason: Pain, Moderate (4-6) Ceftriaxone Sodium 1 gm/ (Sodium Chloride) 20 mls @ 2 mls/min IV Q24HR [facility] Last Admin: 11/22/17 18:38 Dose: 2 mls/min Ibuprofen (Motrin) 800 mg PO Q6H PRN PRN Reason: Pain, Mild (1-3) Last Admin: 11/19/17 17:40 Dose: 800 mg Insulin Human Regular (Humulin R) 0 units SUB-Q PC [facility]; Protocol Last Admin: 11/23/17 10:41 Dose: Not Given Labetalol HCl (Normodyne) 600 mg PO BID [facility] Last Admin: 11/23/17 13:39 Dose: 600 mg Linagliptin (Tradjenta) 5 mg PO QDAY [facility] Last Admin: 11/23/17 10:18 Dose: 5 mg Metformin HCl (Glucophage) 1,000 mg PO BIDDIAB [facility] Last Admin: 11/23/17 08:19 Dose: 1,000 mg Multi-Ingredient Ointment (Lansinoh) 1 applic TP PRN PRN PRN Reason: dryness/cracking Naloxone HCl (Narcan 0.4 Mg/1 Ml) 0.1 mg IV Q2MIN PRN PRN Reason: Res Rate </= 8 or 02 SAT < 92% Nifedipine (Procardia Xl) 90 mg PO QDAY [facility] Last Admin: 11/23/17 10:18 Dose: 90 mg Ondansetron HCl (Zofran) 4 mg IV Q8H PRN PRN Reason: Nausea And Vomiting Oxycodone/Acetaminophen (Percocet 5/325) 1 tab PO Q6H PRN PRN Reason: Pain, Moderate (4-6) Last Admin: 11/22/17 21:56 Dose: 1 tab Simethicone (Mylicon) 80 mg PO Q6H PRN PRN Reason: Gas pain Witch Livia/Glycerin (Tucks Pad) 1 each TP PRN PRN PRN Reason: Hemorrhoids/cleansing/soothing Exam - Constitutional Vital Signs: Temp Pulse Resp BP Pulse Ox 98.6 F 82 18 135/91 99 11/23/17 12:30 11/23/17 12:30 11/23/17 12:30 11/23/17 12:30 11/23/17 04:50 - Labs CBC & Chem 7: 11/22/17 03:52 11/22/17 03:52 Lab Results: Laboratory Results - last 24 hr 11/22/17 11/23/17 21:06 10:24 POC Glucose 106 H 108 H Assessment and Plan pt seen and examined. agree with note above. hemangioma and cyst appearing liver lesions incidentally found on imaging. typically benign, but should have repeat in 3-6 months to document stability. f/u in gi clinic after d/c. will s /o, please call as needed.
--- NOTE | 2017-11-23 11:36 | Progress Note ---
Subjective - Reason for Consult Consult date: 11/23/17 Reason for consult: Psychiatry Follow-up - Chief Complaint Chief complaint: "I feel much better" 37-year-old -[place] female who was consulted for psychiatric services because of worsening depression. Today the patient is calm and cooperative during the assessment. She stated that her will be working a "temp job" until he can find full-time employment. She denies being depressed, but worried about getting back on "feet." She stated that her and mother have been excellent supporting her. She stated that her mother will keep the Sunday-Sunday once she return to work. She stated that she look forward for her to be released from the hospital. She denies SI/HI's and AVH's. She stated that she will follow up with [facility] for outpatient psy services and therapy. Mental Status Exam - Vital signs Last Vital Signs Temp 98.7 F 11/23/17 07:30 Pulse 93 H 11/23/17 07:30 Resp 16 11/23/17 07:30 BP 131/82 11/23/17 07:30 Pulse Ox 99 11/23/17 04:50 - Exam Narrative exam: MSE: Appearance: calm, cooperative Behavior: regular eye contact Speech: regular rate and tone Mood: "okay" Affect: congruent to mood Thought Process: linear Thought Content: denies SI/HI's and AVH's Motor Activity: lying in bed Cognition: A/O x 3 Insight: appropriate Judgment: appropriate Assessment and Plan Impression: MDD. Today the patient is calm and cooperative during the assessment. Recommendation/Plan: The patient can follow up with [facility] for outpatient psy services and therapy. Continue Wellbutrin 150 mg PO BID for depression. Discussed possible suicidality/medication induced marylu with patient reference Wellbutrin with patient. Discussed generalized coping skills wilth patient. Patient educated on the risks/benefits of Wellbutrin in regards to . At this time benefits outweigh the risks. Patient agrees and verbalizes full understanding.
[2017-11-23 13:10] VITALS: BP 135/91
--- NOTE | 2017-11-23 17:22 | Progress Note ---
Assessment and Plan Assessment and plan: Patient is a 24-year-old lady with a history of hypertension and diabetes mellitus status post section on 10/30/2017, presented to her CVT RN O' s office for persistent headache. No nausea vomiting. Was directly admitted. CT scan was unremarkable for any acute event. Patient needs to be compliant with medication. Denies any polyuria polydipsia polyphagia. On admission to the hospital and was seen was 6.8%. The patient was admitted 200s. Patient was commenced on labetalol nifedipine. The patient to be appreciably controlled currently within the 130s. Patient denies any more headaches. No orthopnea or paroxysmal nocturnal dyspnea. Blood sugar in the 150s with insulin. Hypertensive Urgency * Continue with labetalol 600 mg 1 by mouth twice a day and nifedipine 90 mg daily * Counselling provided to the patient. * Encouraged to keep a BP Diary T2DM * A1c was 6.8% * Continue sliding scale insulin and consistent, carbohydrates diet. Abdnormal Liver Mass * Hemeangioma- outaptient follow up with gi MDD * Follow with psych outpatient. Discussed with Dr Ydoer. Thanks for this consult. We'll continue to follow this patient with you History Interval history: Patient seen and examined, in no acute distress. Resting comfortably Hospitalist Physical - Physical exam Narrative exam: VITAL SIGNS: Reviewed. GENERAL: The patient appeared well nourished and normally developed. Vital signs as documented. HEAD: No signs of head trauma. EYES: Pupils are equal. Extraocular motions intact. EARS: Hearing grossly intact. MOUTH: Oropharynx is normal. NECK: No adenopathy, no JVD. CHEST: Chest with clear breath sounds bilaterally. No wheezes, rales, or rhonchi. CARDIAC: Regular rate and rhythm. S1 and S2, without murmurs, gallops, or rubs. VASCULAR: No Edema. Peripheral pulses normal and equal in all extremities. ABDOMEN: Soft, without detectable tenderness. No sign of distention. No rebound or guarding, and no masses palpated. Bowel Sounds normal. MUSCULOSKELETAL: Good range of motion of all major joints. Extremities without clubbing, cyanosis or edema. NEUROLOGIC EXAM: Alert and oriented x 3. No focal sensory or strength deficits. Speech normal. Follows commands. PSYCHIATRIC: Mood normal. SKIN: No rash or lesions. - Constitutional Vitals: Temp Pulse Resp BP Pulse Ox 98.6 F 82 18 135/91 99 11/23/17 12:30 11/23/17 12:30 11/23/17 12:30 11/23/17 13:39 11/23/17 04:50 Results - Labs CBC & Chem 7: 11/22/17 03:52 11/22/17 03:52 Labs: Laboratory Last Values WBC 8.8 K/mm3 (4.5-11.0) 11/22/17 03:52 RBC 3.63 M/mm3 (3.65-5.03) L 11/22/17 03:52 Hgb 9.5 gm/dl (10.1-14.3) L 11/22/17 03:52 Hct 30.2 % (30.3-42.9) L 11/22/17 03:52 MCV 83 fl (79-97) 11/22/17 03:52 MCH 26 pg (28-32) L 11/22/17 03:52 MCHC 31 % (30-34) 11/22/17 03:52 RDW 17.4 % (13.2-15.2) H 11/22/17 03:52 Plt Count 382 K/mm3 (140-440) 11/22/17 03:52 Lymph % (Auto) 16.4 % (13.4-35.0) 11/22/17 03:52 [place] % (Auto) 7.0 % (0.0-7.3) 11/22/17 03:52 Eos % (Auto) 0.8 % (0.0-4.3) 11/22/17 03:52 Baso % (Auto) 0.6 % (0.0-1.8) 11/22/17 03:52 Lymph # 1.4 K/mm3 (1.2-5.4) 11/22/17 03:52 [place] # 0.6 K/mm3 (0.0-0.8) 11/22/17 03:52 Eos # 0.1 K/mm3 (0.0-0.4) 11/22/17 03:52 Baso # 0.0 K/mm3 (0.0-0.1) 11/22/17 03:52 Seg Neutrophils % 75.2 % (40.0-70.0) H 11/22/17 03:52 Seg Neutrophils # 6.7 K/mm3 (1.8-7.7) 11/22/17 03:52 Sodium 141 mmol/L (137-145) 11/22/17 03:52 Potassium 3.9 mmol/L (3.6-5.0) 11/22/17 03:52 Chloride 104.9 mmol/L (98-107) 11/22/17 03:52 Carbon Dioxide 23 mmol/L (22-30) 11/22/17 03:52 Anion Gap 17 mmol/L 11/22/17 03:52 BUN 14 mg/dL (7-17) 11/22/17 03:52 Creatinine 0.8 mg/dL (0.7-1.2) 11/22/17 03:52 Estimated GFR > 60 ml/min 11/22/17 03:52 BUN/Creatinine Ratio 18 % 11/22/17 03:52 Glucose 101 mg/dL (65-100) H 11/22/17 03:52 POC Glucose 108 (70-105) H 11/23/17 10:24 Hemoglobin A1c 6.8 % (4-6) H 11/19/17 19:11 Calcium 8.5 mg/dL (8.4-10.2) 11/22/17 03:52 Total Bilirubin < 0.20 mg/dL (0.1-1.2) 11/22/17 03:52 AST 13 units/L (5-40) 11/22/17 03:52 ALT 20 units/L (7-56) 11/22/17 03:52 Alkaline Phosphatase 123 units/L (35-129) 11/22/17 03:52 Total Protein 6.3 g/dL (6.3-8.2) 11/22/17 03:52 Albumin 3.6 g/dL (3.9-5) L 11/22/17 03:52 Albumin/Globulin Ratio 1.3 % 11/22/17 03:52 Urine Color Red (Yellow) 11/19/17 16:36 Urine Turbidity Turbid (Clear) 11/19/17 16:36 Urine pH 6.0 (5.0-7.0) 11/19/17 16:36 Ur Specific [place] 1.028 (1.003-1.030) 11/19/17 16:36 Urine Protein 100 mg/dl mg/dL (Negative) 11/19/17 16:36 Urine Glucose (UA) 50 mg/dL (Negative) 11/19/17 16:36 Urine Ketones Tr mg/dL (Negative) 11/19/17 16:36 Urine Blood Lg (Negative) 11/19/17 16:36 Urine Nitrite Neg (Negative) 11/19/17 16:36 Urine Bilirubin Neg (Negative) 11/19/17 16:36 Urine Urobilinogen < 2.0 mg/dL (<2.0) 11/19/17 16:36 Ur Leukocyte Esterase Mod (Negative) 11/19/17 16:36 Urine WBC (Auto) > 182.0 /HPF (0.0-6.0) H 11/19/17 16:36 Urine RBC (Auto) > 182.0 /HPF (0.0-6.0) 11/19/17 16:36 Urine Bacteria (Auto) 1+ /HPF (Negative) 11/19/17 16:36
== END 2017-11-23 15:20 | disposition home or self-care (01) ==
LOC: 3A 13:42 → UNDOADMOB 13:42 → OB 13:43 → UNDOADMOB 14:06 → OB 14:06
PROVIDERS: ADMIT Obstetrics & Gynecology; ATTEND Obstetrics & Gynecology
DX: O99.89 Other specified diseases and conditions complicating pregnancy, childbirth and the puerperium (principal); R51 Headache; R10.9 Unspecified abdominal pain; O24.93 Unspecified diabetes mellitus in the puerperium; O16.5 Unspecified maternal hypertension, complicating the puerperium; F53 Mental and behavioral disorders associated with the puerperium, not elsewhere classified
CPT/HCPCS: 36415; 70450; 74177; 76770; 80053; 81001; 82962; 83036; 85025; 87086; 93005; 93010; 96372; 96374; 96375; 96376; G0378; G0379; G0463; J0360; J0696; Q9967; 99211; J1815